=== PATIENT | male | born 1965 | race African-American/Black ===

== ENCOUNTER 2022-04-23 15:22 | Inpatient (IN) | payer OTHER ==
[2022-04-23 15:51] VITALS: BMI 21.9
[2022-04-23] MEDS ORDERED: POLYETHYLENE GLYCOL (HEALTHYLAX) 3350 17 GM PACKET PO PRN (18:41)
[2022-04-23] MEDS ORDERED: MAG HYDROX/AL HYDROX/SIMETH 30 ML UNIT-DOSE CUP PO PRN (18:41)
[2022-04-23] MEDS ORDERED: ACETAMINOPHEN 325 MG TABLET (FP) PO PRN ×2 (18:41)
[2022-04-23] MEDS ORDERED: DICYCLOMINE HCL 10 MG CAPSULE PO PRN (18:41)
[2022-04-23] MEDS ORDERED: METHOCARBAMOL 500 MG TABLET PO PRN (18:41)
[2022-04-23] MEDS ORDERED: NICOTINE 10 MG CARTRIDGE (INHALER) IH PRN (18:41)
[2022-04-23] MEDS ORDERED: hydrOXYzine PAMOATE 25 MG CAPSULE (FP) PO PRN (18:41)
[2022-04-23] MEDS ORDERED: ONDANSETRON *ODT* 4 MG TABLET SL PRN (18:41)
[2022-04-23] MEDS ORDERED: MAGNESIUM HYDROX 2400MG/30ML ORAL SUSPENSION 30 ML CUP PO PRN (18:41)
[2022-04-23] MEDS ORDERED: BISMUTH SUBSALICYLATE 524 MG/30 ML PO PRN (18:41)
[2022-04-23] MEDS ORDERED: NALOXONE HCL (KLOXXADO) 8 MG SPRAY NS PRN (18:41)
[2022-04-23] MEDS ORDERED: LORazepam 1 MG TABLET PO PRN (18:41)
[2022-04-23] MEDS ORDERED: LOPERAMIDE HCL 2 MG CAPSULE PO PRN (18:41)
[2022-04-23] MEDS ORDERED: BENZOCAINE/MENTHOL (CHLORASEPTIC ) LOZENGE MM PRN (18:41)
[2022-04-23] MEDS ORDERED: IBUPROFEN 400 MG TABLET (FP) PO PRN (18:41)
[2022-04-23] MEDS ORDERED: NICOTINE POLACRILEX 2 MG GUM BUC PRN (18:41)
[2022-04-23] MEDS ORDERED: IBUPROFEN 600 MG TABLET (FP) PO PRN (18:41)
[2022-04-23] MEDS: THIAMINE HCL 100 MG TABLET (FP) PO SCH (21:21)
[2022-04-23] MEDS: INSULIN (LEVEMIR) 100 UNITS/ML UNITS SQ SCH (21:22)
[2022-04-23] MEDS: LORazepam 2 MG TABLET PO SCH (22:10)
[2022-04-23] MEDS: MELATONIN 5 MG TABLETS PO SCH (22:11)
[2022-04-24] MEDS: LORazepam 2 MG TABLET PO SCH ×4 (05:29→22:52)
[2022-04-24] MEDS: INSULIN SLIDING SCALE (NOVOLOG) 1 VIAL SQ SCH ×3 (06:44→17:10)
[2022-04-24] MEDS ORDERED: INSULIN SLIDING SCALE (NOVOLOG) 1 VIAL SQ SCH (07:00)
[2022-04-24] MEDS: metoPROLOL SUCCINATE 25 MG TAB.SR.24H (FP) PO SCH (10:03)
[2022-04-24] MEDS: PRENATAL VITAMINS W/ FOLIC ACID TABLET (FP) PO SCH (10:03)
[2022-04-24] MEDS: ASPIRIN 81 MG CHEWABLE TABLETS PO SCH (10:04)
[2022-04-24] MEDS: LISINOPRIL 5 MG TABLET PO SCH (10:30)
[2022-04-24] MEDS: THIAMINE HCL 100 MG TABLET (FP) PO SCH (22:51)
[2022-04-24] MEDS: MELATONIN 5 MG TABLETS PO SCH (22:51)
[2022-04-24] MEDS: INSULIN (LEVEMIR) 100 UNITS/ML UNITS SQ SCH (22:54)
[2022-04-25] MEDS: LORazepam 1 MG TABLET PO SCH ×3 (05:30→18:54)
[2022-04-25] MEDS: INSULIN SLIDING SCALE (NOVOLOG) 1 VIAL SQ SCH ×3 (06:21→18:54)
[2022-04-25 09:14] VITALS: RESP 17
[2022-04-25] MEDS: PRENATAL VITAMINS W/ FOLIC ACID TABLET (FP) PO SCH (10:30)
[2022-04-25] MEDS: LISINOPRIL 5 MG TABLET PO SCH (10:31)
[2022-04-25] MEDS: ASPIRIN 81 MG CHEWABLE TABLETS PO SCH (10:31)
[2022-04-25] MEDS: metoPROLOL SUCCINATE 25 MG TAB.SR.24H (FP) PO SCH (10:31)
[2022-04-25 11:36] LABS: HEMATOCRIT 24.1 % (35.4-49); HEMOGLOBIN 7.5 GM/dL (11.7-16.9); MCH 23.3 pg (25.7-33.7); MCHC 31.3 g/dl (32.0-35.9); MEAN CELL VOLUME 74.3 fl (80-96); MEAN PLT VOLUME 8.8 fl (7.5-11.1); PLATELET COUNT 333 10^3/uL (134-434); RBC 3.25 M/mm3 (4.00-5.60); RDW 18.8 % (11.9-15.9); WHITE BLOOD COUNT 5.4 K/mm3 (4.0-10.0)
[2022-04-25 12:27] LABS: CALCIUM 8.1 mg/dL (8.5-10.1)
[2022-04-25 12:28] LABS: ALBUMIN 2.5 g/dl (3.4-5.0); BLOOD UREA NITROGEN 35.7 mg/dL (7-18)
[2022-04-25 12:31] LABS: BILIRUBIN,TOTAL 0.3 mg/dL (0.2-1)
[2022-04-25 12:33] LABS: TOT PROT 6.3 g/dl (6.4-8.2)
[2022-04-25 13:13] VITALS: BP 137/78; PULSE 96; TEMP 96.6
[2022-04-25] MEDS ORDERED: NIFEdipine E.R. 30 MG TABLET PO SCH (13:30)
[2022-04-25] MEDS ORDERED: levETIRAcetam 500 MG TABLET (FP) PO SCH (13:30)
[2022-04-25] MEDS ORDERED: ASPIRIN PO SCH (13:30)
[2022-04-25] MEDS ORDERED: SEVELAMER CARBONATE 800 MG TAB (FP) PO SCH (17:30)
[2022-04-25] MEDS ORDERED: PATIENT'S OWN MEDICATION (NON-FORMULARY) (Insulin Glargine,Hum.Rec.Anlog [Lantus Solostar] SQ SCH (22:00)
[2022-04-26] MEDS ORDERED: LORazepam 0.5 MG TABLET PO PRN
[2022-04-26] MEDS ORDERED: LORazepam 0.5 MG TABLET PO SCH (05:00)
[2022-04-26] MEDS ORDERED: FOLIC ACID 1 MG TABLET (FP) PO SCH (10:00)
[2022-04-26] MEDS ORDERED: CALCIUM 500MG/VIT-D 200 UNITS COMBO TABLET (FP) PO SCH (10:00)
[2022-04-27] MEDS ORDERED: LORazepam 0.5 MG TABLET PO ONE (05:00)
== END 2022-04-25 21:47 | disposition short-term general hospital (02) | DRG 775 ==
LOC: YASAS 15:22 → Y3N 19:33
PROVIDERS: ADMIT Allergy & Immunology; ATTEND Family Medicine
PROC: HZ2ZZZZ Detoxification Services for Substance Abuse Treatment (ICD-10-PCS; principal; 2022-04-23)
DX: F10.230 Alcohol dependence with withdrawal, uncomplicated (principal); I25.10 Atherosclerotic heart disease of native coronary artery without angina pectoris; I10 Essential (primary) hypertension; D64.9 Anemia, unspecified; Z95.1 Presence of aortocoronary bypass graft; E78.5 Hyperlipidemia, unspecified; K21.9 Gastro-esophageal reflux disease without esophagitis; E11.9 Type 2 diabetes mellitus without complications; Z79.4 Long term (current) use of insulin; M54.50 Low back pain, unspecified; G89.29 Other chronic pain; Z87.19 Personal history of other diseases of the digestive system; Z88.8 Allergy status to other drugs, medicaments and biological substances
CPT/HCPCS: 36415; 80053; 82962; 85027; 86593; 86780; 87811; C9803-CS; U0003; U0005

== ENCOUNTER 2022-04-25 14:10 | Inpatient (IN) | payer OTHER ==
[2022-04-25 16:28] LABS: BASO % 1.1 % (0-2.0); EOS % 5.6 % (0-4.5); HEMATOCRIT 23.7 % (35.4-49); HEMOGLOBIN 7.3 GM/dL (11.7-16.9); LYMPH % 18.6 % (8-40); MCH 22.9 pg (25.7-33.7); MCHC 30.7 g/dl (32.0-35.9); MEAN CELL VOLUME 74.5 fl (80-96); MEAN PLT VOLUME 8.7 fl (7.5-11.1); MONO % 8.9 % (3.8-10.2); NEUT % 65.8 % (42.8-82.8); PLATELET COUNT 297 10^3/uL (134-434); RBC 3.18 M/mm3 (4.00-5.60); RDW 18.3 % (11.9-15.9); WHITE BLOOD COUNT 5.1 K/mm3 (4.0-10.0)
[2022-04-25 16:33] LABS: INR 1.01 (0.83-1.09); PROTHROMBIN TIME (PATIENT) 11.6 SEC (9.7-13.0)
[2022-04-25 16:36] LABS: ACTIVATED PTT 28.6 SECONDS (25.2-36.5)
[2022-04-25 17:27] LABS: ALBUMIN 2.6 g/dl (3.4-5.0); BLOOD UREA NITROGEN 34.1 mg/dL (7-18); CALCIUM 8.1 mg/dL (8.5-10.1)
[2022-04-25 17:29] LABS: CREATININE 2.7 mg/dL (0.55-1.3)
[2022-04-25 17:32] LABS: BILIRUBIN,TOTAL 0.2 mg/dL (0.2-1); TOT PROT 6.5 g/dl (6.4-8.2)
[2022-04-25] MEDS ORDERED: ACETAMINOPHEN 1000 MG/100 ML BAG IVPB PRN (20:48)
[2022-04-25] MEDS ORDERED: LORazepam 1 MG TABLET PO PRN ×2 (21:41→22:21)
[2022-04-25] MEDS ORDERED: FOLIC ACID INJECTION - 1 MG, THIAMINE HCL 100 MG, MULTIVIT INJECTION ADULT 10 ML in SOD... IVPB ONE (21:43)
[2022-04-25] MEDS ORDERED: SODIUM CHLORIDE 1,000 ML IV SCH (21:45)
[2022-04-25] MEDS ORDERED: ACETAMINOPHEN INJECTION 100 ML IVPB ONE (21:56)
[2022-04-26 01:20] VITALS: BMI 22.7
[2022-04-26] MEDS: HEPARIN NA (PORCINE) 5,000 UNITS/ML 1ML VIAL SQ SCH ×2 (01:51→06:06)
[2022-04-26] MEDS: LORazepam 1 MG TABLET PO SCH ×6 (01:51→22:38)
[2022-04-26] MEDS: INSULIN SLIDING SCALE (NOVOLOG) 1 VIAL SQ SCH ×5 (02:53→22:39)
[2022-04-26] MEDS ORDERED: FOLIC ACID INJECTION - 1 MG, THIAMINE HCL 100 MG, MULTIVIT INJECTION ADULT 10 ML in SOD... IVPB ONE (09:15)
[2022-04-26] MEDS: THIAMINE HCL 100 MG TABLET (FP) PO SCH (09:35)
[2022-04-26] MEDS: FOLIC ACID 1 MG TABLET (FP) PO SCH (09:35)
[2022-04-26] MEDS: LIDOCAINE 5% TOPICAL PATCH TP SCH (10:01)
[2022-04-26] MEDS: GABAPENTIN 100 MG CAPSULE PO SCH ×3 (11:21→22:12)
[2022-04-26 11:56] LABS: BASO % 0.6 % (0-2.0); EOS % 3.4 % (0-4.5); HEMOGLOBIN 9.7 GM/dL (11.7-16.9); LYMPH % 15.2 % (8-40); MCH 24.1 pg (25.7-33.7); MCHC 31.4 g/dl (32.0-35.9); MEAN CELL VOLUME 76.8 fl (80-96); MEAN PLT VOLUME 8.9 fl (7.5-11.1); MONO % 6.4 % (3.8-10.2); NEUT % 74.4 % (42.8-82.8); PLATELET COUNT 289 10^3/uL (134-434); RBC 4.03 M/mm3 (4.00-5.60); RDW 18.9 % (11.9-15.9); RETICULOCYTES 1.06 % (0.5-1.5); WHITE BLOOD COUNT 7.1 K/mm3 (4.0-10.0)
[2022-04-26 12:21] LABS: ALBUMIN 2.8 g/dl (3.4-5.0); BLOOD UREA NITROGEN 30.8 mg/dL (7-18); CALCIUM 8.5 mg/dL (8.5-10.1); MAGNESIUM 1.8 mg/dL (1.8-2.4)
[2022-04-26 12:25] LABS: PHOSPHOROUS 2.8 mg/dL (2.5-4.9)
[2022-04-26 12:26] LABS: CREATININE 2.3 mg/dL (0.55-1.3); TOT PROT 6.8 g/dl (6.4-8.2)
[2022-04-26 12:27] LABS: BILIRUBIN,TOTAL 0.2 mg/dL (0.2-1)
[2022-04-26] MEDS: SEVELAMER CARBONATE 800 MG TAB (FP) PO SCH ×2 (14:01→22:13)
[2022-04-26] MEDS: levETIRAcetam 500 MG TABLET (FP) PO SCH ×2 (14:01→22:13)
[2022-04-26] MEDS: METOPROLOL TARTRATE 25 MG TABLET (FP) PO SCH (14:01)
[2022-04-26] MEDS: NIFEdipine E.R. 30 MG TABLET PO SCH (14:16)
[2022-04-26 14:56] LABS: PH,URINE 8.5 (5.0-8.0); URINE APPEARANCE CLEAR; URINE BILIRUBIN NEGATIVE (NEGATIVE); URINE COLOR YELLOW; URINE GLUCOSE (UA) 2+ (NEGATIVE); URINE KETONE NEGATIVE (NEGATIVE); URINE LEUK ESTERASE NEGATIVE (NEGATIVE); URINE NITRITE NEGATIVE (NEGATIVE); URINE PROTEIN NEGATIVE (NEGATIVE); URINE UROBILINOGEN 0.2 mg/dL (0.2-1.0)
[2022-04-26] MEDS: MAG HYDROX/AL HYDROX/SIMETH 30 ML UNIT-DOSE CUP PO PRN ×2 (16:42→22:32)
[2022-04-26] MEDS: ATORVASTATIN CA 20 MG TABLET (FP) PO SCH (22:13)
[2022-04-26] MEDS: LIDOCAINE PATCH REMOVAL MC SCH (22:39)
[2022-04-26] MEDS: INSULIN (LEVEMIR) 100 UNITS/ML UNITS SQ SCH (22:39)
[2022-04-26] MEDS ORDERED: ACETAMINOPHEN 1000 MG/100 ML BAG IVPB ONE (23:15)
[2022-04-27] MEDS ORDERED: LORazepam 1 MG TABLET PO SCH (05:00)
[2022-04-27] MEDS: LORazepam 1 MG TABLET PO SCH ×4 (06:45→22:59)
[2022-04-27] MEDS: SEVELAMER CARBONATE 800 MG TAB (FP) PO SCH ×3 (06:45→22:59)
[2022-04-27] MEDS: GABAPENTIN 100 MG CAPSULE PO SCH ×3 (06:45→22:59)
[2022-04-27] MEDS: INSULIN (LEVEMIR) 100 UNITS/ML UNITS SQ SCH ×2 (06:49→23:02)
[2022-04-27] MEDS: INSULIN SLIDING SCALE (NOVOLOG) 1 VIAL SQ SCH ×4 (06:49→23:01)
[2022-04-27 09:24] LABS: HEMATOCRIT 29.9 % (35.4-49); HEMOGLOBIN 9.5 GM/dL (11.7-16.9); MCH 24.2 pg (25.7-33.7); MCHC 31.9 g/dl (32.0-35.9); MEAN CELL VOLUME 75.9 fl (80-96); MEAN PLT VOLUME 8.6 fl (7.5-11.1); PLATELET COUNT 317 10^3/uL (134-434); RBC 3.94 M/mm3 (4.00-5.60); RDW 18.8 % (11.9-15.9); WHITE BLOOD COUNT 7.2 K/mm3 (4.0-10.0)
[2022-04-27 09:58] LABS: CALCIUM 8.6 mg/dL (8.5-10.1)
[2022-04-27 10:00] LABS: ALBUMIN 2.6 g/dl (3.4-5.0); BLOOD UREA NITROGEN 32.7 mg/dL (7-18)
[2022-04-27] MEDS ORDERED: FERROUS SO4 325 MG TABLET (FP) PO SCH (10:00)
[2022-04-27 10:02] LABS: TOT PROT 6.6 g/dl (6.4-8.2)
[2022-04-27 10:03] LABS: BILIRUBIN,TOTAL 0.3 mg/dL (0.2-1); CREATININE 2.3 mg/dL (0.55-1.3)
[2022-04-27] MEDS: levETIRAcetam 500 MG TABLET (FP) PO SCH ×2 (10:40→22:59)
[2022-04-27] MEDS: METOPROLOL TARTRATE 25 MG TABLET (FP) PO SCH (10:40)
[2022-04-27] MEDS: NIFEdipine E.R. 30 MG TABLET PO SCH (10:40)
[2022-04-27] MEDS: FOLIC ACID 1 MG TABLET (FP) PO SCH ×2 (10:40→10:41)
[2022-04-27] MEDS: THIAMINE HCL 100 MG TABLET (FP) PO SCH (10:40)
[2022-04-27] MEDS: LIDOCAINE 5% TOPICAL PATCH TP SCH (10:40)
[2022-04-27] MEDS: MAG HYDROX/AL HYDROX/SIMETH 30 ML UNIT-DOSE CUP PO PRN ×2 (15:02→22:59)
[2022-04-27] MEDS: ATORVASTATIN CA 20 MG TABLET (FP) PO SCH (22:59)
[2022-04-27] MEDS: LIDOCAINE PATCH REMOVAL MC SCH (23:03)
[2022-04-28] MEDS ORDERED: LORazepam 0.5 MG TABLET PO PRN ×2
[2022-04-28] MEDS ORDERED: LORazepam 0.5 MG TABLET PO SCH (05:00)
[2022-04-28] MEDS: GABAPENTIN 100 MG CAPSULE PO SCH ×3 (06:45→22:19)
[2022-04-28] MEDS: SEVELAMER CARBONATE 800 MG TAB (FP) PO SCH ×3 (06:45→22:19)
[2022-04-28] MEDS: LORazepam 0.5 MG TABLET PO SCH ×4 (06:45→22:18)
[2022-04-28] MEDS: INSULIN (LEVEMIR) 100 UNITS/ML UNITS SQ SCH ×2 (06:46→22:19)
[2022-04-28] MEDS: INSULIN SLIDING SCALE (NOVOLOG) 1 VIAL SQ SCH ×4 (06:46→22:20)
[2022-04-28 09:45] LABS: HEMATOCRIT 30.9 % (35.4-49); HEMOGLOBIN 9.9 GM/dL (11.7-16.9); MCH 24.7 pg (25.7-33.7); MCHC 32.1 g/dl (32.0-35.9); MEAN CELL VOLUME 77.1 fl (80-96); MEAN PLT VOLUME 8.9 fl (7.5-11.1); PLATELET COUNT 317 10^3/uL (134-434); RDW 19.4 % (11.9-15.9); WHITE BLOOD COUNT 9.5 K/mm3 (4.0-10.0)
[2022-04-28] MEDS: FOLIC ACID 1 MG TABLET (FP) PO SCH ×2 (09:57→10:48)
[2022-04-28] MEDS: THIAMINE HCL 100 MG TABLET (FP) PO SCH (09:57)
[2022-04-28] MEDS: NIFEdipine E.R. 30 MG TABLET PO SCH (09:57)
[2022-04-28] MEDS: levETIRAcetam 500 MG TABLET (FP) PO SCH ×2 (09:57→22:19)
[2022-04-28] MEDS: METOPROLOL TARTRATE 25 MG TABLET (FP) PO SCH (09:57)
[2022-04-28] MEDS: LIDOCAINE 5% TOPICAL PATCH TP SCH (09:57)
[2022-04-28 10:37] LABS: ALBUMIN 2.8 g/dl (3.4-5.0)
[2022-04-28 10:38] LABS: BLOOD UREA NITROGEN 38.5 mg/dL (7-18)
[2022-04-28 10:40] LABS: CALCIUM 8.8 mg/dL (8.5-10.1); CREATININE 2.6 mg/dL (0.55-1.3)
[2022-04-28 10:42] LABS: BILIRUBIN,TOTAL 0.2 mg/dL (0.2-1); TOT PROT 7.2 g/dl (6.4-8.2)
[2022-04-28] MEDS: MAG HYDROX/AL HYDROX/SIMETH 30 ML UNIT-DOSE CUP PO PRN ×2 (17:00→22:19)
[2022-04-28] MEDS: ATORVASTATIN CA 20 MG TABLET (FP) PO SCH (22:19)
[2022-04-28] MEDS: LIDOCAINE PATCH REMOVAL MC SCH (22:19)
[2022-04-29] MEDS ORDERED: LORazepam 0.5 MG TABLET PO ONE ×2 (05:00)
[2022-04-29] MEDS: GABAPENTIN 100 MG CAPSULE PO SCH ×3 (06:20→21:17)
[2022-04-29] MEDS: SEVELAMER CARBONATE 800 MG TAB (FP) PO SCH ×3 (06:20→21:17)
[2022-04-29] MEDS: INSULIN (LEVEMIR) 100 UNITS/ML UNITS SQ SCH (06:28)
[2022-04-29] MEDS: INSULIN SLIDING SCALE (NOVOLOG) 1 VIAL SQ SCH ×4 (06:28→21:25)
[2022-04-29 09:57] LABS: INR 1.01 (0.83-1.09); PROTHROMBIN TIME (PATIENT) 11.6 SEC (9.7-13.0)
[2022-04-29 10:07] LABS: HEMOGLOBIN 9.7 GM/dL (11.7-16.9); MCH 24.9 pg (25.7-33.7); MCHC 32.3 g/dl (32.0-35.9); MEAN PLT VOLUME 8.9 fl (7.5-11.1); PLATELET COUNT 339 10^3/uL (134-434); RBC 3.89 M/mm3 (4.00-5.60); RDW 19.4 % (11.9-15.9); WHITE BLOOD COUNT 8.4 K/mm3 (4.0-10.0)
[2022-04-29 10:15] LABS: CALCIUM 8.9 mg/dL (8.5-10.1)
[2022-04-29 10:16] LABS: ALBUMIN 2.8 g/dl (3.4-5.0); BLOOD UREA NITROGEN 37.1 mg/dL (7-18)
[2022-04-29 10:19] LABS: CREATININE 2.3 mg/dL (0.55-1.3)
[2022-04-29 10:21] LABS: BILIRUBIN,TOTAL 0.2 mg/dL (0.2-1)
[2022-04-29] MEDS: levETIRAcetam 500 MG TABLET (FP) PO SCH ×2 (10:44→21:16)
[2022-04-29] MEDS: FOLIC ACID 1 MG TABLET (FP) PO SCH ×2 (10:44)
[2022-04-29] MEDS: NIFEdipine E.R. 30 MG TABLET PO SCH (10:44)
[2022-04-29] MEDS: LIDOCAINE 5% TOPICAL PATCH TP SCH ×2 (10:44→10:46)
[2022-04-29] MEDS: METOPROLOL TARTRATE 25 MG TABLET (FP) PO SCH (10:44)
[2022-04-29] MEDS: THIAMINE HCL 100 MG TABLET (FP) PO SCH (10:44)
[2022-04-29] MEDS ORDERED: PEG 3350/NA SULF BICARB CL/KCL 4000 ML SOLN.RECON PO ONE (15:00)
[2022-04-29] MEDS ORDERED: BISACODYL 5 MG TABLET.DR (FP) PO ONE (20:00)
[2022-04-29] MEDS ORDERED: MAG HYDROX/AL HYDROX/SIMETH 30 ML UNIT-DOSE CUP PO ONE (20:30)
[2022-04-29] MEDS: ATORVASTATIN CA 20 MG TABLET (FP) PO SCH (21:16)
[2022-04-29] MEDS: LIDOCAINE PATCH REMOVAL MC SCH (21:22)
[2022-04-30] MEDS: SEVELAMER CARBONATE 800 MG TAB (FP) PO SCH ×3 (05:27→21:10)
[2022-04-30] MEDS: GABAPENTIN 100 MG CAPSULE PO SCH ×3 (05:27→21:10)
[2022-04-30] MEDS: INSULIN SLIDING SCALE (NOVOLOG) 1 VIAL SQ SCH ×4 (06:29→21:16)
[2022-04-30 09:22] VITALS: RESP 20
[2022-04-30] MEDS: LIDOCAINE 5% TOPICAL PATCH TP SCH (09:23)
[2022-04-30] MEDS: THIAMINE HCL 100 MG TABLET (FP) PO SCH (09:23)
[2022-04-30] MEDS: levETIRAcetam 500 MG TABLET (FP) PO SCH ×2 (09:23→21:09)
[2022-04-30] MEDS: NIFEdipine E.R. 30 MG TABLET PO SCH (09:23)
[2022-04-30] MEDS: FOLIC ACID 1 MG TABLET (FP) PO SCH ×2 (09:23)
[2022-04-30] MEDS: METOPROLOL TARTRATE 25 MG TABLET (FP) PO SCH (09:24)
[2022-04-30 10:37] LABS: INR 1.12 (0.83-1.09); PROTHROMBIN TIME (PATIENT) 12.9 SEC (9.7-13.0)
[2022-04-30 10:40] LABS: EOS % 2.7 % (0-4.5); HEMOGLOBIN 8.8 GM/dL (11.7-16.9); LYMPH % 17.1 % (8-40); MCH 24.7 pg (25.7-33.7); MCHC 32.5 g/dl (32.0-35.9); MEAN CELL VOLUME 75.8 fl (80-96); MEAN PLT VOLUME 8.7 fl (7.5-11.1); MONO % 6.2 % (3.8-10.2); PLATELET COUNT 328 10^3/uL (134-434); RBC 3.56 M/mm3 (4.00-5.60); RDW 19.4 % (11.9-15.9); WHITE BLOOD COUNT 8.6 K/mm3 (4.0-10.0)
[2022-04-30 11:14] LABS: BLOOD UREA NITROGEN 33.9 mg/dL (7-18)
[2022-04-30] MEDS: PANTOPRAZOLE 40 MG TABLET PO SCH (15:38)
[2022-04-30] MEDS: SODIUM ZIRCONIUM CYCLOSILICATE (LOKELMA) 5 GM PACKET PO SCH (16:59)
[2022-04-30] MEDS: ATORVASTATIN CA 20 MG TABLET (FP) PO SCH (21:10)
[2022-04-30] MEDS: LIDOCAINE PATCH REMOVAL MC SCH (21:19)
[2022-05-01] MEDS: SEVELAMER CARBONATE 800 MG TAB (FP) PO SCH ×3 (05:48→23:09)
[2022-05-01] MEDS: GABAPENTIN 100 MG CAPSULE PO SCH ×2 (05:48→14:26)
[2022-05-01] MEDS: INSULIN (LEVEMIR) 100 UNITS/ML UNITS SQ SCH ×2 (06:01→23:18)
[2022-05-01] MEDS: INSULIN SLIDING SCALE (NOVOLOG) 1 VIAL SQ SCH ×4 (06:02→23:17)
[2022-05-01] MEDS ORDERED: INSULIN (NOVOLOG) ASPART 100 UNITS/ML 10ML VIAL ONE (06:39)
[2022-05-01] MEDS: FOLIC ACID 1 MG TABLET (FP) PO SCH (09:56)
[2022-05-01] MEDS: NIFEdipine E.R. 30 MG TABLET PO SCH (09:56)
[2022-05-01] MEDS: PANTOPRAZOLE 40 MG TABLET PO SCH (09:56)
[2022-05-01] MEDS: METOPROLOL TARTRATE 25 MG TABLET (FP) PO SCH (09:56)
[2022-05-01] MEDS: THIAMINE HCL 100 MG TABLET (FP) PO SCH (09:56)
[2022-05-01] MEDS: LIDOCAINE 5% TOPICAL PATCH TP SCH (09:57)
[2022-05-01] MEDS: levETIRAcetam 500 MG TABLET (FP) PO SCH ×2 (09:57→23:09)
[2022-05-01] MEDS: SODIUM ZIRCONIUM CYCLOSILICATE (LOKELMA) 5 GM PACKET PO SCH (09:57)
[2022-05-01 10:49] LABS: HEMATOCRIT 25.6 % (35.4-49); HEMOGLOBIN 8.3 GM/dL (11.7-16.9); MCH 24.8 pg (25.7-33.7); MCHC 32.3 g/dl (32.0-35.9); MEAN CELL VOLUME 76.7 fl (80-96); MEAN PLT VOLUME 8.9 fl (7.5-11.1); PLATELET COUNT 299 10^3/uL (134-434); RBC 3.33 M/mm3 (4.00-5.60); RDW 19.7 % (11.9-15.9); WHITE BLOOD COUNT 7.6 K/mm3 (4.0-10.0)
[2022-05-01 11:13] LABS: BLOOD UREA NITROGEN 31.7 mg/dL (7-18); CALCIUM 8.4 mg/dL (8.5-10.1)
[2022-05-01 11:16] LABS: CREATININE 2.4 mg/dL (0.55-1.3)
[2022-05-01] MEDS ORDERED: SODIUM ZIRCONIUM CYCLOSILICATE (LOKELMA) 5 GM PACKET PO SCH (13:23)
[2022-05-01] MEDS: SODIUM BICARBONATE 650 MG TABLET PO SCH ×2 (14:27→23:08)
[2022-05-01] MEDS: LIDOCAINE PATCH REMOVAL MC SCH (23:08)
[2022-05-01] MEDS: ATORVASTATIN CA 20 MG TABLET (FP) PO SCH (23:08)
[2022-05-02] MEDS: SEVELAMER CARBONATE 800 MG TAB (FP) PO SCH ×2 (07:56→13:04)
[2022-05-02] MEDS: INSULIN SLIDING SCALE (NOVOLOG) 1 VIAL SQ SCH ×2 (08:34→11:32)
[2022-05-02] MEDS: INSULIN (LEVEMIR) 100 UNITS/ML UNITS SQ SCH (08:35)
[2022-05-02] MEDS: SODIUM BICARBONATE 650 MG TABLET PO SCH (10:03)
[2022-05-02] MEDS: NIFEdipine E.R. 30 MG TABLET PO SCH (10:03)
[2022-05-02] MEDS: THIAMINE HCL 100 MG TABLET (FP) PO SCH (10:03)
[2022-05-02] MEDS: FOLIC ACID 1 MG TABLET (FP) PO SCH (10:03)
[2022-05-02] MEDS: PANTOPRAZOLE 40 MG TABLET PO SCH (10:03)
[2022-05-02] MEDS: METOPROLOL TARTRATE 25 MG TABLET (FP) PO SCH (10:03)
[2022-05-02] MEDS: levETIRAcetam 500 MG TABLET (FP) PO SCH (10:03)
[2022-05-02] MEDS: LIDOCAINE 5% TOPICAL PATCH TP SCH (10:05)
[2022-05-02 13:25] LABS: HEMATOCRIT 27.2 % (35.4-49); HEMOGLOBIN 8.7 GM/dL (11.7-16.9); MCH 24.6 pg (25.7-33.7); PLATELET COUNT 321 10^3/uL (134-434); RBC 3.53 M/mm3 (4.00-5.60); RDW 20.2 % (11.9-15.9); WHITE BLOOD COUNT 9.6 K/mm3 (4.0-10.0)
[2022-05-02 13:33] LABS: CALCIUM 8.3 mg/dL (8.5-10.1)
[2022-05-02 13:34] LABS: BLOOD UREA NITROGEN 30.9 mg/dL (7-18)
[2022-05-02 13:37] LABS: CREATININE 2.5 mg/dL (0.55-1.3)
[2022-05-02 15:11] VITALS: BP 133/95; PULSE 91; TEMP 98.7
== END 2022-05-02 16:30 | disposition other institution (70) | DRG 470 ==
LOC: JER 14:10 → JERBED 20:01 → J7W 23:20 → J8W 04-26 14:53
PROVIDERS: ADMIT Internal Medicine
PROC: 30233N1 Transfusion of Nonautologous Red Blood Cells into Peripheral Vein, Percutaneous Approach (ICD-10-PCS; 2022-04-26)
PROC: 0DB98ZX Excision of Duodenum, Via Natural or Artificial Opening Endoscopic, Diagnostic (ICD-10-PCS; 2022-04-30)
PROC: 0DB68ZX Excision of Stomach, Via Natural or Artificial Opening Endoscopic, Diagnostic (ICD-10-PCS; 2022-04-30)
PROC: 0DB58ZX Excision of Esophagus, Via Natural or Artificial Opening Endoscopic, Diagnostic (ICD-10-PCS; principal; 2022-04-30 12:00)
DX: I12.9 Hypertensive chronic kidney disease with stage 1 through stage 4 chronic kidney disease, or unspecified chronic kidney disease (principal); N18.4 Chronic kidney disease, stage 4 (severe); E11.22 Type 2 diabetes mellitus with diabetic chronic kidney disease; E11.65 Type 2 diabetes mellitus with hyperglycemia; K86.1 Other chronic pancreatitis; D63.1 Anemia in chronic kidney disease; F10.139 Alcohol abuse with withdrawal, unspecified; F17.210 Nicotine dependence, cigarettes, uncomplicated; K29.20 Alcoholic gastritis without bleeding; K21.00 Gastro-esophageal reflux disease with esophagitis, without bleeding; K44.9 Diaphragmatic hernia without obstruction or gangrene; K59.00 Constipation, unspecified; E78.5 Hyperlipidemia, unspecified; Z95.1 Presence of aortocoronary bypass graft
CPT/HCPCS: 0241U-QW; 36415; 36430; 71045-TC-FY; 74176-TC; 76775-TC; 80048; 80053; 81003; 82550; 82570; 82728; 82962; 83540; 83550; 83735; 83970; 84100; 84132; 84155; 84156; 84157; 84165; 85025; 85027; 85045; 85610; 85730; 86704; 86803; 86850; 86900; 86901; 86922; 87340; 87517; 88305-TC; 93005; 93010; 93306-TC; 99285-25; C9803-CS; J1644; P9058; U0003; U0005

== ENCOUNTER 2022-05-02 16:43 | Inpatient (IN) | payer OTHER ==
[2022-05-02] MEDS ORDERED: ACETAMINOPHEN 325 MG TABLET (FP) PO PRN (16:58)
[2022-05-02] MEDS ORDERED: P-EPHED 60MG/TRIPROLIDI 2.5MG TABLET PO PRN (16:58)
[2022-05-02] MEDS ORDERED: POLYETHYLENE GLYCOL (HEALTHYLAX) 3350 17 GM PACKET PO PRN (16:58)
[2022-05-02] MEDS ORDERED: NICOTINE 10 MG CARTRIDGE (INHALER) IH PRN (16:58)
[2022-05-02] MEDS ORDERED: BENZOCAINE/MENTHOL (CHLORASEPTIC ) LOZENGE MM PRN (16:58)
[2022-05-02] MEDS ORDERED: MAG HYDROX/AL HYDROX/SIMETH 30 ML UNIT-DOSE CUP PO PRN (16:58)
[2022-05-02] MEDS ORDERED: MAGNESIUM HYDROX 2400MG/30ML ORAL SUSPENSION 30 ML CUP PO PRN (16:58)
[2022-05-02] MEDS ORDERED: guaiFENesin 200 MG/10 ML 10 ML UNIT-DOSE CUPS PO PRN (16:58)
[2022-05-02] MEDS ORDERED: hydrOXYzine PAMOATE 25 MG CAPSULE (FP) PO PRN (16:58)
[2022-05-02] MEDS ORDERED: LOPERAMIDE HCL 2 MG CAPSULE PO PRN (16:58)
[2022-05-02] MEDS ORDERED: IBUPROFEN 400 MG TABLET (FP) PO PRN (16:58)
[2022-05-02 17:36] VITALS: RESP 18; BMI 22.8
[2022-05-02] MEDS ORDERED: METOPROLOL TARTRATE 25 MG TABLET (FP) ONE (20:10)
[2022-05-02] MEDS: metoPROLOL SUCCINATE 25 MG TAB.SR.24H (FP) PO SCH (20:12)
[2022-05-02] MEDS ORDERED: INSULIN (NOVOLOG) ASPART 100 UNITS/ML 10ML VIAL SQ ONE (20:16)
[2022-05-02] MEDS ORDERED: TUBERCULIN PPD 5 TU/0.1ML VIAL ID ONE (21:55)
[2022-05-02] MEDS: INSULIN (LEVEMIR) 100 UNITS/ML UNITS SQ SCH (22:00)
[2022-05-02] MEDS: MELATONIN 5 MG TABLETS PO SCH (22:03)
[2022-05-02] MEDS: ATORVASTATIN CA 20 MG TABLET (FP) PO SCH (22:03)
[2022-05-02] MEDS: levETIRAcetam 500 MG TABLET (FP) PO SCH (22:03)
[2022-05-02] MEDS: GABAPENTIN 100 MG CAPSULE PO SCH (22:03)
[2022-05-02] MEDS: THIAMINE HCL 100 MG TABLET (FP) PO SCH (22:03)
[2022-05-02] MEDS: CALCIUM CARBONATE 650 MG TABLET PO SCH (23:54)
[2022-05-02] MEDS: SODIUM BICARBONATE 650 MG TABLET PO SCH (23:54)
[2022-05-03] MEDS: GABAPENTIN 100 MG CAPSULE PO SCH ×3 (07:36→21:50)
[2022-05-03] MEDS: FERROUS SO4 325 MG TABLET (FP) PO SCH (07:37)
[2022-05-03] MEDS: INSULIN SLIDING SCALE (NOVOLOG) 1 VIAL SQ SCH ×3 (07:52→17:01)
[2022-05-03] MEDS ORDERED: ERGOCALCIFEROL (VIT D2) 50,000 UNIT (1.25 MG) CAPSULE PO SCH (10:00)
[2022-05-03] MEDS: SODIUM ZIRCONIUM CYCLOSILICATE (LOKELMA) 10 GM PACKET PO SCH (10:03)
[2022-05-03] MEDS: SEVELAMER CARBONATE 800 MG TAB (FP) PO SCH ×3 (10:04→17:01)
[2022-05-03] MEDS: CALCIUM CARBONATE 650 MG TABLET PO SCH ×2 (10:04→21:49)
[2022-05-03] MEDS: NIFEdipine E.R. 30 MG TABLET PO SCH (10:04)
[2022-05-03] MEDS: SODIUM BICARBONATE 650 MG TABLET PO SCH ×2 (10:05→21:50)
[2022-05-03] MEDS: metoPROLOL SUCCINATE 25 MG TAB.SR.24H (FP) PO SCH (10:06)
[2022-05-03] MEDS: levETIRAcetam 500 MG TABLET (FP) PO SCH ×2 (10:06→21:49)
[2022-05-03] MEDS: FOLIC ACID 1 MG TABLET (FP) PO SCH (10:06)
[2022-05-03] MEDS: PANTOPRAZOLE 40 MG TABLET PO SCH (10:06)
[2022-05-03] MEDS: PRENATAL VITAMINS W/ FOLIC ACID TABLET (FP) PO SCH (10:07)
[2022-05-03] MEDS: NICOTINE 7 MG/24 HOURS TOPICAL PATCH TD SCH (10:35)
[2022-05-03 11:18] LABS: HEMOGLOBIN 9.1 GM/dL (11.7-16.9); MCH 24.7 pg (25.7-33.7); MCHC 31.3 g/dl (32.0-35.9); MEAN PLT VOLUME 9.7 fl (7.5-11.1); PLATELET COUNT 358 10^3/uL (134-434); RBC 3.67 M/mm3 (4.00-5.60); RDW 20.1 % (11.9-15.9)
[2022-05-03 11:26] LABS: CALCIUM 8.6 mg/dL (8.5-10.1)
[2022-05-03 11:27] LABS: ALBUMIN 2.9 g/dl (3.4-5.0); BLOOD UREA NITROGEN 34.9 mg/dL (7-18)
[2022-05-03 11:30] LABS: CREATININE 2.6 mg/dL (0.55-1.3)
[2022-05-03 11:31] LABS: BILIRUBIN,TOTAL 0.4 mg/dL (0.2-1); TOT PROT 7.1 g/dl (6.4-8.2)
[2022-05-03 11:37] LABS: PH,URINE 5.5 (5.0-8.0); URINE APPEARANCE CLEAR; URINE BILIRUBIN NEGATIVE (NEGATIVE); URINE COLOR YELLOW; URINE GLUCOSE (UA) NEGATIVE (NEGATIVE); URINE KETONE NEGATIVE (NEGATIVE); URINE LEUK ESTERASE NEGATIVE (NEGATIVE); URINE NITRITE NEGATIVE (NEGATIVE); URINE PROTEIN NEGATIVE (NEGATIVE); URINE UROBILINOGEN 0.2 mg/dL (0.2-1.0)
[2022-05-03] MEDS ORDERED: INSULIN (NOVOLOG) ASPART 100 UNITS/ML 10ML VIAL ONE (12:32)
[2022-05-03] MEDS: ATORVASTATIN CA 20 MG TABLET (FP) PO SCH (21:50)
[2022-05-03] MEDS: MELATONIN 5 MG TABLETS PO SCH (21:50)
[2022-05-03] MEDS: THIAMINE HCL 100 MG TABLET (FP) PO SCH (21:50)
[2022-05-03] MEDS: INSULIN (LEVEMIR) 100 UNITS/ML UNITS SQ SCH (22:00)
[2022-05-04] MEDS: SEVELAMER CARBONATE 800 MG TAB (FP) PO SCH ×3 (07:53→17:16)
[2022-05-04] MEDS: FERROUS SO4 325 MG TABLET (FP) PO SCH (07:53)
[2022-05-04] MEDS: INSULIN SLIDING SCALE (NOVOLOG) 1 VIAL SQ SCH ×3 (07:53→17:27)
[2022-05-04] MEDS: GABAPENTIN 100 MG CAPSULE PO SCH ×3 (07:53→22:35)
[2022-05-04] MEDS: CALCIUM CARBONATE 650 MG TABLET PO SCH ×2 (10:34→22:35)
[2022-05-04] MEDS: levETIRAcetam 500 MG TABLET (FP) PO SCH ×2 (10:35→22:35)
[2022-05-04] MEDS: PANTOPRAZOLE 40 MG TABLET PO SCH (10:35)
[2022-05-04] MEDS: metoPROLOL SUCCINATE 25 MG TAB.SR.24H (FP) PO SCH (10:35)
[2022-05-04] MEDS: FOLIC ACID 1 MG TABLET (FP) PO SCH (10:35)
[2022-05-04] MEDS: SODIUM BICARBONATE 650 MG TABLET PO SCH ×2 (10:36→22:35)
[2022-05-04] MEDS: SODIUM ZIRCONIUM CYCLOSILICATE (LOKELMA) 10 GM PACKET PO SCH (10:37)
[2022-05-04] MEDS: NIFEdipine E.R. 30 MG TABLET PO SCH (10:38)
[2022-05-04] MEDS: NICOTINE 7 MG/24 HOURS TOPICAL PATCH TD SCH (10:39)
[2022-05-04] MEDS: PRENATAL VITAMINS W/ FOLIC ACID TABLET (FP) PO SCH (10:42)
[2022-05-04] MEDS: MELATONIN 5 MG TABLETS PO SCH (22:34)
[2022-05-04] MEDS: ATORVASTATIN CA 20 MG TABLET (FP) PO SCH (22:35)
[2022-05-04] MEDS: THIAMINE HCL 100 MG TABLET (FP) PO SCH (22:35)
[2022-05-04] MEDS: INSULIN (LEVEMIR) 100 UNITS/ML UNITS SQ SCH (22:41)
[2022-05-05] MEDS: SEVELAMER CARBONATE 800 MG TAB (FP) PO SCH ×3 (07:11→17:07)
[2022-05-05] MEDS: GABAPENTIN 100 MG CAPSULE PO SCH ×3 (07:11→22:44)
[2022-05-05] MEDS: FERROUS SO4 325 MG TABLET (FP) PO SCH (07:11)
[2022-05-05] MEDS: INSULIN SLIDING SCALE (NOVOLOG) 1 VIAL SQ SCH ×3 (08:05→17:05)
[2022-05-05] MEDS: FOLIC ACID 1 MG TABLET (FP) PO SCH (10:39)
[2022-05-05] MEDS: PANTOPRAZOLE 40 MG TABLET PO SCH (10:39)
[2022-05-05] MEDS: NIFEdipine E.R. 30 MG TABLET PO SCH (10:39)
[2022-05-05] MEDS: PRENATAL VITAMINS W/ FOLIC ACID TABLET (FP) PO SCH (10:39)
[2022-05-05] MEDS: CALCIUM CARBONATE 650 MG TABLET PO SCH ×2 (10:39→22:47)
[2022-05-05] MEDS: levETIRAcetam 500 MG TABLET (FP) PO SCH ×2 (10:39→22:44)
[2022-05-05] MEDS: metoPROLOL SUCCINATE 25 MG TAB.SR.24H (FP) PO SCH (10:39)
[2022-05-05] MEDS: NICOTINE 7 MG/24 HOURS TOPICAL PATCH TD SCH (10:40)
[2022-05-05] MEDS: SODIUM ZIRCONIUM CYCLOSILICATE (LOKELMA) 10 GM PACKET PO SCH (10:40)
[2022-05-05] MEDS: SODIUM BICARBONATE 650 MG TABLET PO SCH ×2 (10:40→22:47)
[2022-05-05] MEDS: MELATONIN 5 MG TABLETS PO SCH (22:44)
[2022-05-05] MEDS: ATORVASTATIN CA 20 MG TABLET (FP) PO SCH (22:44)
[2022-05-05] MEDS: THIAMINE HCL 100 MG TABLET (FP) PO SCH (22:45)
[2022-05-05] MEDS ORDERED: INSULIN (LEVEMIR) 100 UNITS/ML UNITS SQ ONE (22:49)
[2022-05-05] MEDS: INSULIN (LEVEMIR) 100 UNITS/ML UNITS SQ SCH (22:54)
[2022-05-06] MEDS: INSULIN SLIDING SCALE (NOVOLOG) 1 VIAL SQ SCH ×3 (06:56→17:09)
[2022-05-06] MEDS: GABAPENTIN 100 MG CAPSULE PO SCH ×3 (06:56→21:42)
[2022-05-06] MEDS: FERROUS SO4 325 MG TABLET (FP) PO SCH (07:08)
[2022-05-06] MEDS: SEVELAMER CARBONATE 800 MG TAB (FP) PO SCH ×3 (07:08→17:10)
[2022-05-06] MEDS: CALCIUM CARBONATE 650 MG TABLET PO SCH ×2 (10:22→21:42)
[2022-05-06] MEDS: FOLIC ACID 1 MG TABLET (FP) PO SCH (10:22)
[2022-05-06] MEDS: SODIUM ZIRCONIUM CYCLOSILICATE (LOKELMA) 10 GM PACKET PO SCH (10:22)
[2022-05-06] MEDS: levETIRAcetam 500 MG TABLET (FP) PO SCH ×2 (10:22→21:42)
[2022-05-06] MEDS: NIFEdipine E.R. 30 MG TABLET PO SCH (10:23)
[2022-05-06] MEDS: NICOTINE 7 MG/24 HOURS TOPICAL PATCH TD SCH (10:23)
[2022-05-06] MEDS: SODIUM BICARBONATE 650 MG TABLET PO SCH ×2 (10:23→21:45)
[2022-05-06] MEDS: metoPROLOL SUCCINATE 25 MG TAB.SR.24H (FP) PO SCH (10:23)
[2022-05-06] MEDS: PANTOPRAZOLE 40 MG TABLET PO SCH (10:23)
[2022-05-06] MEDS: PRENATAL VITAMINS W/ FOLIC ACID TABLET (FP) PO SCH (10:23)
[2022-05-06] MEDS: ASPIRIN 81 MG CHEWABLE TABLETS PO SCH (12:02)
[2022-05-06] MEDS: ATORVASTATIN CA 20 MG TABLET (FP) PO SCH (21:42)
[2022-05-06] MEDS: THIAMINE HCL 100 MG TABLET (FP) PO SCH (21:42)
[2022-05-06] MEDS: MELATONIN 5 MG TABLETS PO SCH (21:43)
[2022-05-06] MEDS: INSULIN (LEVEMIR) 100 UNITS/ML UNITS SQ SCH (21:44)
[2022-05-07] MEDS: GABAPENTIN 100 MG CAPSULE PO SCH ×3 (06:30→21:09)
[2022-05-07] MEDS: INSULIN SLIDING SCALE (NOVOLOG) 1 VIAL SQ SCH ×3 (06:31→16:28)
[2022-05-07] MEDS: FERROUS SO4 325 MG TABLET (FP) PO SCH (07:21)
[2022-05-07] MEDS: SEVELAMER CARBONATE 800 MG TAB (FP) PO SCH ×3 (07:21→16:45)
[2022-05-07] MEDS: SODIUM BICARBONATE 650 MG TABLET PO SCH ×2 (10:24→21:09)
[2022-05-07] MEDS: metoPROLOL SUCCINATE 25 MG TAB.SR.24H (FP) PO SCH (10:24)
[2022-05-07] MEDS: levETIRAcetam 500 MG TABLET (FP) PO SCH ×2 (10:24→21:09)
[2022-05-07] MEDS: FOLIC ACID 1 MG TABLET (FP) PO SCH (10:24)
[2022-05-07] MEDS: CALCIUM CARBONATE 650 MG TABLET PO SCH ×2 (10:24→21:10)
[2022-05-07] MEDS: PANTOPRAZOLE 40 MG TABLET PO SCH (10:24)
[2022-05-07] MEDS: NIFEdipine E.R. 30 MG TABLET PO SCH (10:24)
[2022-05-07] MEDS: PRENATAL VITAMINS W/ FOLIC ACID TABLET (FP) PO SCH (10:25)
[2022-05-07] MEDS: ASPIRIN 81 MG CHEWABLE TABLETS PO SCH (10:25)
[2022-05-07] MEDS: NICOTINE 7 MG/24 HOURS TOPICAL PATCH TD SCH (10:25)
[2022-05-07] MEDS: SODIUM ZIRCONIUM CYCLOSILICATE (LOKELMA) 10 GM PACKET PO SCH (10:28)
[2022-05-07] MEDS: ATORVASTATIN CA 20 MG TABLET (FP) PO SCH (21:09)
[2022-05-07] MEDS: MELATONIN 5 MG TABLETS PO SCH (21:09)
[2022-05-07] MEDS: INSULIN (LEVEMIR) 100 UNITS/ML UNITS SQ SCH (21:11)
[2022-05-07] MEDS: THIAMINE HCL 100 MG TABLET (FP) PO SCH (21:36)
[2022-05-08] MEDS: GABAPENTIN 100 MG CAPSULE PO SCH ×3 (06:07→22:17)
[2022-05-08] MEDS: INSULIN SLIDING SCALE (NOVOLOG) 1 VIAL SQ SCH ×3 (07:02→16:38)
[2022-05-08] MEDS: SEVELAMER CARBONATE 800 MG TAB (FP) PO SCH ×3 (07:02→16:37)
[2022-05-08] MEDS: FERROUS SO4 325 MG TABLET (FP) PO SCH (07:03)
[2022-05-08] MEDS: PRENATAL VITAMINS W/ FOLIC ACID TABLET (FP) PO SCH (09:56)
[2022-05-08] MEDS: CALCIUM CARBONATE 650 MG TABLET PO SCH ×2 (09:57→22:17)
[2022-05-08] MEDS: metoPROLOL SUCCINATE 25 MG TAB.SR.24H (FP) PO SCH (09:57)
[2022-05-08] MEDS: FOLIC ACID 1 MG TABLET (FP) PO SCH (09:57)
[2022-05-08] MEDS: PANTOPRAZOLE 40 MG TABLET PO SCH (09:58)
[2022-05-08] MEDS: ASPIRIN 81 MG CHEWABLE TABLETS PO SCH (09:58)
[2022-05-08] MEDS: levETIRAcetam 500 MG TABLET (FP) PO SCH ×2 (09:58→22:17)
[2022-05-08] MEDS: NIFEdipine E.R. 30 MG TABLET PO SCH (09:58)
[2022-05-08] MEDS: SODIUM BICARBONATE 650 MG TABLET PO SCH ×2 (09:58→22:17)
[2022-05-08] MEDS: SODIUM ZIRCONIUM CYCLOSILICATE (LOKELMA) 10 GM PACKET PO SCH (09:59)
[2022-05-08] MEDS: NICOTINE 7 MG/24 HOURS TOPICAL PATCH TD SCH (09:59)
[2022-05-08] MEDS: INSULIN (LEVEMIR) 100 UNITS/ML UNITS SQ SCH (22:16)
[2022-05-08] MEDS: THIAMINE HCL 100 MG TABLET (FP) PO SCH (22:16)
[2022-05-08] MEDS: ATORVASTATIN CA 20 MG TABLET (FP) PO SCH (22:17)
[2022-05-08] MEDS: MELATONIN 5 MG TABLETS PO SCH (22:17)
[2022-05-09] MEDS: GABAPENTIN 100 MG CAPSULE PO SCH ×3 (06:01→23:08)
[2022-05-09] MEDS: INSULIN SLIDING SCALE (NOVOLOG) 1 VIAL SQ SCH ×3 (06:02→17:41)
[2022-05-09] MEDS: FERROUS SO4 325 MG TABLET (FP) PO SCH (07:07)
[2022-05-09] MEDS: SEVELAMER CARBONATE 800 MG TAB (FP) PO SCH ×3 (07:07→19:08)
[2022-05-09] MEDS: PRENATAL VITAMINS W/ FOLIC ACID TABLET (FP) PO SCH (10:30)
[2022-05-09] MEDS: levETIRAcetam 500 MG TABLET (FP) PO SCH ×2 (10:30→23:07)
[2022-05-09] MEDS: SODIUM ZIRCONIUM CYCLOSILICATE (LOKELMA) 10 GM PACKET PO SCH (10:31)
[2022-05-09] MEDS: PANTOPRAZOLE 40 MG TABLET PO SCH (10:31)
[2022-05-09] MEDS: metoPROLOL SUCCINATE 25 MG TAB.SR.24H (FP) PO SCH (10:31)
[2022-05-09] MEDS: FOLIC ACID 1 MG TABLET (FP) PO SCH (10:31)
[2022-05-09] MEDS: ASPIRIN 81 MG CHEWABLE TABLETS PO SCH (10:31)
[2022-05-09] MEDS: CALCIUM CARBONATE 650 MG TABLET PO SCH ×2 (10:32→23:06)
[2022-05-09] MEDS: NICOTINE 7 MG/24 HOURS TOPICAL PATCH TD SCH (10:32)
[2022-05-09] MEDS: NIFEdipine E.R. 30 MG TABLET PO SCH (10:33)
[2022-05-09] MEDS: SODIUM BICARBONATE 650 MG TABLET PO SCH ×2 (10:33→23:08)
[2022-05-09 12:24] LABS: HEMATOCRIT 27.6 % (35.4-49); HEMOGLOBIN 8.8 GM/dL (11.7-16.9); MCH 25.2 pg (25.7-33.7); MCHC 32.1 g/dl (32.0-35.9); MEAN CELL VOLUME 78.6 fl (80-96); MEAN PLT VOLUME 7.8 fl (7.5-11.1); PLATELET COUNT 499 10^3/uL (134-434); RBC 3.51 M/mm3 (4.00-5.60); RDW 20.6 % (11.9-15.9); WHITE BLOOD COUNT 9.3 K/mm3 (4.0-10.0)
[2022-05-09 12:30] LABS: CHLORIDE 114 mmol/L (98-107); SODIUM 137 mmol/L (136-145)
[2022-05-09 12:36] LABS: CALCIUM 8.5 mg/dL (8.5-10.1)
[2022-05-09 12:37] LABS: ALBUMIN 2.9 g/dl (3.4-5.0); BLOOD UREA NITROGEN 30.6 mg/dL (7-18); CO2 17 mmol/L (21-32); GLUCOSE,RANDOM 98 mg/dL (74-106)
[2022-05-09 12:40] LABS: CREATININE 1.9 mg/dL (0.55-1.3); SGOT/AST 19 U/L (15-37); SGPT/ALT 24 U/L (13-61)
[2022-05-09 12:41] LABS: BILIRUBIN,TOTAL 0.4 mg/dL (0.2-1); TOT PROT 7.3 g/dl (6.4-8.2)
[2022-05-09 12:42] LABS: ALK PHOS 127 U/L (45-117)
[2022-05-09 12:45] LABS: ANION GAP 6 MMOL/L (8-16)
[2022-05-09 14:44] VITALS: BP 115/73; PULSE 73; TEMP 98.2
[2022-05-09] MEDS: ATORVASTATIN CA 20 MG TABLET (FP) PO SCH (23:07)
[2022-05-09] MEDS: INSULIN (LEVEMIR) 100 UNITS/ML UNITS SQ SCH (23:07)
[2022-05-09] MEDS: MELATONIN 5 MG TABLETS PO SCH (23:08)
[2022-05-09] MEDS: THIAMINE HCL 100 MG TABLET (FP) PO SCH (23:08)
[2022-05-10] MEDS: INSULIN SLIDING SCALE (NOVOLOG) 1 VIAL SQ SCH (07:35)
[2022-05-10] MEDS: GABAPENTIN 100 MG CAPSULE PO SCH (07:35)
== END 2022-05-10 07:49 | disposition short-term general hospital (02) | DRG 772 ==
LOC: YASAS 16:43 → Y5N 19:50
PROVIDERS: ADMIT Allergy & Immunology; ATTEND Psychiatry & Neurology Pain Medicine
PROC: HZ42ZZZ Group Counseling for Substance Abuse Treatment, Cognitive-Behavioral (ICD-10-PCS; principal; 2022-05-02)
DX: F10.20 Alcohol dependence, uncomplicated (principal); F14.20 Cocaine dependence, uncomplicated; F17.210 Nicotine dependence, cigarettes, uncomplicated; D64.9 Anemia, unspecified; I25.10 Atherosclerotic heart disease of native coronary artery without angina pectoris; I13.10 Hypertensive heart and chronic kidney disease without heart failure, with stage 1 through stage 4 chronic kidney disease, or unspecified chronic kidney disease; N18.4 Chronic kidney disease, stage 4 (severe); Z95.1 Presence of aortocoronary bypass graft; K86.89 Other specified diseases of pancreas; E78.5 Hyperlipidemia, unspecified; E11.9 Type 2 diabetes mellitus without complications; Z79.4 Long term (current) use of insulin; Z87.19 Personal history of other diseases of the digestive system; Z88.8 Allergy status to other drugs, medicaments and biological substances
CPT/HCPCS: 36415; 80053; 81003; 82962; 85027; 86593; 86780

== ENCOUNTER 2022-05-09 16:29 | Inpatient (IN) | payer OTHER ==
[2022-05-09 17:10] VITALS: BMI 23.6
[2022-05-09 19:07] LABS: EPI CELLS 1 /uL (0-25.1); HYALINE CASTS 0 /uL (0-3.1); URINE APPEARANCE CLEAR; URINE BACTERIA 4 /uL (0-1359); URINE BILIRUBIN NEGATIVE (NEGATIVE); URINE COLOR YELLOW; URINE GLUCOSE (UA) NEGATIVE (NEGATIVE); URINE KETONE NEGATIVE (NEGATIVE); URINE LEUK ESTERASE TRACE (NEGATIVE); URINE NITRITE NEGATIVE (NEGATIVE); URINE PROTEIN NEGATIVE (NEGATIVE); URINE RBC 14 /uL (0-23.9); URINE UROBILINOGEN 0.2 mg/dL (0.2-1.0); URINE WBC 12 /uL (0-25.8)
[2022-05-09 19:07] LABS: CHLORIDE 112 mmol/L (98-107); SODIUM 133 mmol/L (136-145)
[2022-05-09 19:11] LABS: ALBUMIN 2.8 g/dl (3.4-5.0); BLOOD UREA NITROGEN 28.9 mg/dL (7-18); CALCIUM 8.1 mg/dL (8.5-10.1); CO2 17 mmol/L (21-32); GLUCOSE,RANDOM 130 mg/dL (74-106); MAGNESIUM 1.8 mg/dL (1.8-2.4)
[2022-05-09 19:14] LABS: SGOT/AST 16 U/L (15-37); SGPT/ALT 22 U/L (13-61)
[2022-05-09 19:16] LABS: BILIRUBIN,TOTAL 0.1 mg/dL (0.2-1); TOT PROT 6.9 g/dl (6.4-8.2)
[2022-05-09 19:17] LABS: ALK PHOS 122 U/L (45-117)
[2022-05-09 19:32] LABS: ANION GAP 4 MMOL/L (8-16)
[2022-05-09 19:43] LABS: BASO % 0.7 % (0-2.0); EOS % 4.4 % (0-4.5); HEMOGLOBIN 7.6 GM/dL (11.7-16.9); LYMPH % 19.1 % (8-40); MCH 24.3 pg (25.7-33.7); MCHC 31.7 g/dl (32.0-35.9); MEAN CELL VOLUME 76.8 fl (80-96); MEAN PLT VOLUME 8.4 fl (7.5-11.1); MONO % 5.5 % (3.8-10.2); NEUT % 70.3 % (42.8-82.8); PLATELET COUNT 452 10^3/uL (134-434); RBC 3.12 M/mm3 (4.00-5.60); RDW 20.2 % (11.9-15.9); WHITE BLOOD COUNT 8.6 K/mm3 (4.0-10.0)
[2022-05-09] MEDS ORDERED: CALCIUM GLUCONATE 10% - 1,000 MG/10 ML VIAL IVPB ONE (21:27)
[2022-05-09] MEDS ORDERED: DEXTROSE 50%-WATER - 25 GM/50 ML VIAL IVPUSH ONE (21:29)
[2022-05-09] MEDS ORDERED: INSULIN REGULAR HUMAN 100 UNITS/ML *VIAL IVPUSH ONE (21:29)
[2022-05-09] MEDS ORDERED: DEXTROSE 50%-WATER 25 GM/50 ML DISP.SYRIN ONE (21:41)
[2022-05-09] MEDS ORDERED: CALCIUM GLUCONATE 10% - 1,000 MG/10 ML VIAL ONE (21:41)
[2022-05-09] MEDS ORDERED: SODIUM ZIRCONIUM CYCLOSILICATE (LOKELMA) 5 GM PACKET ONE (21:41)
[2022-05-09] MEDS ORDERED: SODIUM ZIRCONIUM CYCLOSILICATE (LOKELMA) 5 GM PACKET PO ONE (21:53)
[2022-05-10] MEDS ORDERED: DEXTROSE 50%-WATER 25 GM/50 ML DISP.SYRIN ONE (00:30)
[2022-05-10 00:34] LABS: CHLORIDE 115 mmol/L (98-107); SODIUM 137 mmol/L (136-145)
[2022-05-10 00:38] LABS: ANION GAP 5 MMOL/L (8-16); CALCIUM 8.2 mg/dL (8.5-10.1); CO2 17 mmol/L (21-32)
[2022-05-10 00:39] LABS: BLOOD UREA NITROGEN 29.6 mg/dL (7-18)
[2022-05-10 00:42] LABS: CREATININE 2.2 mg/dL (0.55-1.3)
[2022-05-10] MEDS ORDERED: SODIUM CHLORIDE 0.9% 500 ML INFUS.BAG IV ONE (00:47)
[2022-05-10 01:14] LABS: GLUCOSE,RANDOM 38 mg/dL (74-106)
[2022-05-10] MEDS ORDERED: DEXTROSE 50%-WATER - 25 GM/50 ML VIAL IVPUSH ONE ×2 (01:15)
[2022-05-10] MEDS ORDERED: MAG HYDROX/AL HYDROX/SIMETH 30 ML UNIT-DOSE CUP PO PRN (06:12)
[2022-05-10] MEDS ORDERED: LORazepam 1 MG TABLET PO PRN (06:15)
[2022-05-10] MEDS ORDERED: SEVELAMER CARBONATE 800 MG TAB (FP) PO SCH (06:15)
[2022-05-10] MEDS: GABAPENTIN 100 MG CAPSULE PO SCH ×3 (06:39→21:54)
[2022-05-10] MEDS: HEPARIN NA (PORCINE) 5,000 UNITS/ML 1ML VIAL SQ SCH ×3 (06:39→21:54)
[2022-05-10] MEDS ORDERED: LACTATED RINGERS SOLUTION 1,000 ML/1,000 ML INFUS.BAG IV SCH (08:15)
[2022-05-10 09:03] LABS: MAGNESIUM 1.7 mg/dL (1.8-2.4)
[2022-05-10 09:06] LABS: IRON SERUM 43 ug/dL (50-175); PHOSPHOROUS 4.5 mg/dL (2.5-4.9); TOTAL IRON BINDING CAPACITY 327 ug/dL (250-450)
[2022-05-10 09:10] LABS: LDH 147 U/L (87-246)
[2022-05-10] MEDS ORDERED: SODIUM ZIRCONIUM CYCLOSILICATE (LOKELMA) 5 GM PACKET PO SCH (10:00)
[2022-05-10] MEDS ORDERED: THIAMINE HCL 100 MG TABLET (FP) PO SCH (10:00)
[2022-05-10] MEDS ORDERED: CALCIUM CARBONATE 650 MG TABLET PO SCH (10:00)
[2022-05-10] MEDS ORDERED: SODIUM BICARBONATE 650 MG TABLET PO SCH (10:00)
[2022-05-10] MEDS: levETIRAcetam 500 MG TABLET (FP) PO SCH ×2 (11:45→21:54)
[2022-05-10] MEDS: ASPIRIN 81 MG CHEWABLE TABLETS PO SCH (11:45)
[2022-05-10] MEDS: THIAMINE HCL 100 MG TABLET (FP) PO SCH (11:45)
[2022-05-10] MEDS: METOPROLOL TARTRATE 25 MG TABLET (FP) PO SCH (11:46)
[2022-05-10] MEDS: PANTOPRAZOLE 40 MG TABLET PO SCH (11:46)
[2022-05-10] MEDS: NIFEdipine E.R. 30 MG TABLET PO SCH (11:46)
[2022-05-10] MEDS: FOLIC ACID 1 MG TABLET (FP) PO SCH (11:46)
[2022-05-10] MEDS: FERROUS SO4 325 MG TABLET (FP) PO SCH (11:46)
[2022-05-10] MEDS: INSULIN (LEVEMIR) 100 UNITS/ML UNITS SQ SCH ×2 (11:49→21:54)
[2022-05-10] MEDS: SEVELAMER CARBONATE 800 MG TAB (FP) PO SCH ×2 (11:55→18:32)
[2022-05-10] MEDS: INSULIN SLIDING SCALE (NOVOLOG) 1 VIAL SQ SCH ×3 (11:59→21:55)
[2022-05-10] MEDS: CALCIUM (OYSTER SHELL) 500 MG TABLET (FP) PO SCH ×2 (12:59→21:54)
[2022-05-10] MEDS: SODIUM BICARBONATE 650 MG TABLET PO SCH ×2 (18:32→22:50)
[2022-05-10] MEDS ORDERED: SODIUM ZIRCONIUM CYCLOSILICATE (LOKELMA) 5 GM PACKET PO ONE (21:30)
[2022-05-10] MEDS: ATORVASTATIN CA 20 MG TABLET (FP) PO SCH (21:54)
[2022-05-11] MEDS: HEPARIN NA (PORCINE) 5,000 UNITS/ML 1ML VIAL SQ SCH ×3 (06:32→21:17)
[2022-05-11] MEDS: GABAPENTIN 100 MG CAPSULE PO SCH (06:32)
[2022-05-11] MEDS: SODIUM BICARBONATE 650 MG TABLET PO SCH ×3 (06:32→21:17)
[2022-05-11] MEDS: INSULIN (LEVEMIR) 100 UNITS/ML UNITS SQ SCH ×2 (06:34→21:17)
[2022-05-11] MEDS: INSULIN SLIDING SCALE (NOVOLOG) 1 VIAL SQ SCH ×4 (06:40→21:18)
[2022-05-11] MEDS: SEVELAMER CARBONATE 800 MG TAB (FP) PO SCH ×3 (08:52→17:39)
[2022-05-11] MEDS: PANTOPRAZOLE 40 MG TABLET PO SCH (09:57)
[2022-05-11] MEDS: CALCIUM (OYSTER SHELL) 500 MG TABLET (FP) PO SCH ×2 (09:57→21:20)
[2022-05-11] MEDS: FOLIC ACID 1 MG TABLET (FP) PO SCH (09:57)
[2022-05-11] MEDS: ASPIRIN 81 MG CHEWABLE TABLETS PO SCH (09:57)
[2022-05-11] MEDS: levETIRAcetam 500 MG TABLET (FP) PO SCH ×2 (09:58→21:17)
[2022-05-11] MEDS: NIFEdipine E.R. 30 MG TABLET PO SCH (09:58)
[2022-05-11] MEDS: METOPROLOL TARTRATE 25 MG TABLET (FP) PO SCH (09:58)
[2022-05-11] MEDS: FERROUS SO4 325 MG TABLET (FP) PO SCH (09:58)
[2022-05-11] MEDS: THIAMINE HCL 100 MG TABLET (FP) PO SCH (09:58)
[2022-05-11 14:06] LABS: BASO % 0.6 % (0-2.0); HEMATOCRIT 25.9 % (35.4-49); HEMOGLOBIN 8.3 GM/dL (11.7-16.9); LYMPH % 17.3 % (8-40); MCH 24.9 pg (25.7-33.7); MCHC 32.3 g/dl (32.0-35.9); MEAN CELL VOLUME 77.1 fl (80-96); MONO % 4.3 % (3.8-10.2); NEUT % 73.8 % (42.8-82.8); PLATELET COUNT 501 10^3/uL (134-434); RBC 3.35 M/mm3 (4.00-5.60); RDW 20.2 % (11.9-15.9); WHITE BLOOD COUNT 7.6 K/mm3 (4.0-10.0)
[2022-05-11] MEDS: GABAPENTIN 300 MG CAPSULE PO SCH ×2 (14:21→21:17)
[2022-05-11 14:22] LABS: ALBUMIN 2.7 g/dl (3.4-5.0); BLOOD UREA NITROGEN 30.9 mg/dL (7-18); CALCIUM 8.2 mg/dL (8.5-10.1); MAGNESIUM 1.6 mg/dL (1.8-2.4)
[2022-05-11 14:25] LABS: BILIRUBIN,TOTAL 0.4 mg/dL (0.2-1)
[2022-05-11 14:26] LABS: TOT PROT 6.7 g/dl (6.4-8.2)
[2022-05-11 14:27] LABS: CREATININE 2.5 mg/dL (0.55-1.3)
[2022-05-11] MEDS ORDERED: MAGNESIUM SULF 50% (8.12 MEQ/2 ML-1 GM VIAL) IVPB ONE (14:43)
[2022-05-11] MEDS ORDERED: ACETAMINOPHEN 325 MG TABLET (FP) PO PRN (14:45)
[2022-05-11] MEDS ORDERED: MAGNESIUM OXIDE 400 MG TABLET (FP) PO ONE (15:41)
[2022-05-11] MEDS: SODIUM ZIRCONIUM CYCLOSILICATE (LOKELMA) 5 GM PACKET PO SCH (15:54)
[2022-05-11] MEDS ORDERED: INSULIN (NOVOLOG) ASPART 100 UNITS/ML 10ML VIAL ONE (21:08)
[2022-05-11] MEDS: ATORVASTATIN CA 20 MG TABLET (FP) PO SCH (21:17)
[2022-05-12] MEDS: SODIUM BICARBONATE 650 MG TABLET PO SCH ×3 (06:14→21:11)
[2022-05-12] MEDS: GABAPENTIN 300 MG CAPSULE PO SCH ×3 (06:14→21:11)
[2022-05-12] MEDS: HEPARIN NA (PORCINE) 5,000 UNITS/ML 1ML VIAL SQ SCH ×3 (06:14→21:12)
[2022-05-12] MEDS: INSULIN SLIDING SCALE (NOVOLOG) 1 VIAL SQ SCH ×4 (06:14→21:17)
[2022-05-12] MEDS: SEVELAMER CARBONATE 800 MG TAB (FP) PO SCH ×3 (08:39→17:11)
[2022-05-12] MEDS: levETIRAcetam 500 MG TABLET (FP) PO SCH ×2 (09:38→21:11)
[2022-05-12] MEDS: NIFEdipine E.R. 30 MG TABLET PO SCH (09:38)
[2022-05-12] MEDS: FERROUS SO4 325 MG TABLET (FP) PO SCH (09:38)
[2022-05-12] MEDS: ASPIRIN 81 MG CHEWABLE TABLETS PO SCH (09:38)
[2022-05-12] MEDS: FOLIC ACID 1 MG TABLET (FP) PO SCH (09:38)
[2022-05-12] MEDS: CALCIUM (OYSTER SHELL) 500 MG TABLET (FP) PO SCH ×2 (09:38→21:22)
[2022-05-12] MEDS: THIAMINE HCL 100 MG TABLET (FP) PO SCH (09:38)
[2022-05-12] MEDS: PANTOPRAZOLE 40 MG TABLET PO SCH (09:39)
[2022-05-12] MEDS: SODIUM ZIRCONIUM CYCLOSILICATE (LOKELMA) 5 GM PACKET PO SCH (09:39)
[2022-05-12] MEDS: METOPROLOL TARTRATE 25 MG TABLET (FP) PO SCH (09:39)
[2022-05-12 16:07] LABS: BLOOD UREA NITROGEN 32.4 mg/dL (7-18); CALCIUM 8.1 mg/dL (8.5-10.1)
[2022-05-12 16:11] LABS: CREATININE 2.6 mg/dL (0.55-1.3)
[2022-05-12 20:03] LABS: MAGNESIUM 1.5 mg/dL (1.8-2.4)
[2022-05-12] MEDS: ATORVASTATIN CA 20 MG TABLET (FP) PO SCH (21:11)
[2022-05-12] MEDS ORDERED: INSULIN (LEVEMIR) 100 UNITS/ML UNITS SQ SCH (22:00)
[2022-05-13] MEDS: SODIUM BICARBONATE 650 MG TABLET PO SCH ×3 (06:15→21:36)
[2022-05-13] MEDS: GABAPENTIN 300 MG CAPSULE PO SCH ×3 (06:15→21:36)
[2022-05-13] MEDS: HEPARIN NA (PORCINE) 5,000 UNITS/ML 1ML VIAL SQ SCH ×3 (06:15→21:36)
[2022-05-13] MEDS: INSULIN (LEVEMIR) 100 UNITS/ML UNITS SQ SCH (06:17)
[2022-05-13] MEDS: INSULIN SLIDING SCALE (NOVOLOG) 1 VIAL SQ SCH ×4 (06:28→21:40)
[2022-05-13] MEDS: SEVELAMER CARBONATE 800 MG TAB (FP) PO SCH ×3 (08:33→16:49)
[2022-05-13] MEDS: NIFEdipine E.R. 30 MG TABLET PO SCH (09:19)
[2022-05-13] MEDS: METOPROLOL TARTRATE 25 MG TABLET (FP) PO SCH (09:19)
[2022-05-13] MEDS: ASPIRIN 81 MG CHEWABLE TABLETS PO SCH (09:19)
[2022-05-13] MEDS: PANTOPRAZOLE 40 MG TABLET PO SCH (09:19)
[2022-05-13] MEDS: FERROUS SO4 325 MG TABLET (FP) PO SCH (09:19)
[2022-05-13] MEDS: THIAMINE HCL 100 MG TABLET (FP) PO SCH (09:19)
[2022-05-13] MEDS: FOLIC ACID 1 MG TABLET (FP) PO SCH (09:19)
[2022-05-13] MEDS: levETIRAcetam 500 MG TABLET (FP) PO SCH ×2 (09:19→21:36)
[2022-05-13] MEDS: SODIUM ZIRCONIUM CYCLOSILICATE (LOKELMA) 5 GM PACKET PO SCH (09:19)
[2022-05-13] MEDS: CALCIUM (OYSTER SHELL) 500 MG TABLET (FP) PO SCH ×2 (09:20→21:37)
[2022-05-13] MEDS ORDERED: ERGOCALCIFEROL (VIT D2) 50,000 UNIT (1.25 MG) CAPSULE PO SCH (10:00)
[2022-05-13] MEDS ORDERED: INSULIN (NOVOLOG) ASPART 100 UNITS/ML 10ML VIAL ONE (21:16)
[2022-05-13] MEDS: ATORVASTATIN CA 20 MG TABLET (FP) PO SCH (21:36)
[2022-05-14] MEDS: INSULIN SLIDING SCALE (NOVOLOG) 1 VIAL SQ SCH ×4 (06:33→21:25)
[2022-05-14] MEDS: HEPARIN NA (PORCINE) 5,000 UNITS/ML 1ML VIAL SQ SCH ×3 (06:33→21:24)
[2022-05-14] MEDS: SODIUM BICARBONATE 650 MG TABLET PO SCH ×3 (06:33→21:23)
[2022-05-14] MEDS: INSULIN (LEVEMIR) 100 UNITS/ML UNITS SQ SCH (06:33)
[2022-05-14] MEDS: GABAPENTIN 300 MG CAPSULE PO SCH ×3 (06:33→21:24)
[2022-05-14] MEDS: SEVELAMER CARBONATE 800 MG TAB (FP) PO SCH ×3 (08:10→17:11)
[2022-05-14 09:13] LABS: HEMOGLOBIN 9.7 GM/dL (11.7-16.9); MCH 24.4 pg (25.7-33.7); MCHC 31.3 g/dl (32.0-35.9); MEAN PLT VOLUME 8.1 fl (7.5-11.1); PLATELET COUNT 543 10^3/uL (134-434); RBC 3.97 M/mm3 (4.00-5.60); WHITE BLOOD COUNT 10.1 K/mm3 (4.0-10.0)
[2022-05-14 09:50] LABS: CALCIUM 9.3 mg/dL (8.5-10.1)
[2022-05-14 09:51] LABS: CREATININE 2.3 mg/dL (0.55-1.3); MAGNESIUM 1.7 mg/dL (1.8-2.4); PHOSPHOROUS 4.4 mg/dL (2.5-4.9)
[2022-05-14] MEDS: ASPIRIN 81 MG CHEWABLE TABLETS PO SCH (09:54)
[2022-05-14] MEDS: FERROUS SO4 325 MG TABLET (FP) PO SCH (09:54)
[2022-05-14 09:55] LABS: BLOOD UREA NITROGEN 31.7 mg/dL (7-18)
[2022-05-14] MEDS: FOLIC ACID 1 MG TABLET (FP) PO SCH (09:55)
[2022-05-14] MEDS: SODIUM ZIRCONIUM CYCLOSILICATE (LOKELMA) 5 GM PACKET PO SCH ×3 (09:55→21:24)
[2022-05-14] MEDS: METOPROLOL TARTRATE 25 MG TABLET (FP) PO SCH (09:55)
[2022-05-14] MEDS: levETIRAcetam 500 MG TABLET (FP) PO SCH ×2 (09:55→21:23)
[2022-05-14] MEDS: CALCIUM (OYSTER SHELL) 500 MG TABLET (FP) PO SCH ×2 (09:56→21:27)
[2022-05-14] MEDS: NIFEdipine E.R. 30 MG TABLET PO SCH (09:56)
[2022-05-14] MEDS: THIAMINE HCL 100 MG TABLET (FP) PO SCH (09:57)
[2022-05-14] MEDS: PANTOPRAZOLE 40 MG TABLET PO SCH (09:57)
[2022-05-14] MEDS ORDERED: MAGNESIUM SULF 50% (8.12 MEQ/2 ML-1 GM VIAL) IVPB ONE (10:17)
[2022-05-14] MEDS ORDERED: IRON SUCROSE INJECTION 200 MG in SODIUM CHLORIDE 90 ML IVPB ONE (17:00)
[2022-05-14] MEDS: ATORVASTATIN CA 20 MG TABLET (FP) PO SCH (21:23)
[2022-05-15] MEDS: INSULIN (LEVEMIR) 100 UNITS/ML UNITS SQ SCH (06:04)
[2022-05-15] MEDS: SODIUM BICARBONATE 650 MG TABLET PO SCH ×3 (06:04→21:58)
[2022-05-15] MEDS: HEPARIN NA (PORCINE) 5,000 UNITS/ML 1ML VIAL SQ SCH ×3 (06:04→21:56)
[2022-05-15] MEDS: GABAPENTIN 300 MG CAPSULE PO SCH ×3 (06:05→21:57)
[2022-05-15] MEDS: INSULIN SLIDING SCALE (NOVOLOG) 1 VIAL SQ SCH ×4 (07:24→21:40)
[2022-05-15] MEDS: SEVELAMER CARBONATE 800 MG TAB (FP) PO SCH ×3 (08:35→17:16)
[2022-05-15] MEDS: PANTOPRAZOLE 40 MG TABLET PO SCH (09:18)
[2022-05-15] MEDS: levETIRAcetam 500 MG TABLET (FP) PO SCH ×2 (09:18→21:57)
[2022-05-15] MEDS: ASPIRIN 81 MG CHEWABLE TABLETS PO SCH (09:18)
[2022-05-15] MEDS: THIAMINE HCL 100 MG TABLET (FP) PO SCH (09:18)
[2022-05-15] MEDS: SODIUM ZIRCONIUM CYCLOSILICATE (LOKELMA) 5 GM PACKET PO SCH ×2 (09:18→21:55)
[2022-05-15] MEDS: FERROUS SO4 325 MG TABLET (FP) PO SCH (09:18)
[2022-05-15] MEDS: FOLIC ACID 1 MG TABLET (FP) PO SCH (09:18)
[2022-05-15] MEDS: NIFEdipine E.R. 30 MG TABLET PO SCH (09:18)
[2022-05-15] MEDS: METOPROLOL TARTRATE 25 MG TABLET (FP) PO SCH (09:18)
[2022-05-15] MEDS: CALCIUM (OYSTER SHELL) 500 MG TABLET (FP) PO SCH ×2 (09:19→21:57)
[2022-05-15 10:07] LABS: HEMATOCRIT 27.2 % (35.4-49); HEMOGLOBIN 8.7 GM/dL (11.7-16.9); MCH 24.7 pg (25.7-33.7); MCHC 31.9 g/dl (32.0-35.9); MEAN CELL VOLUME 77.4 fl (80-96); MEAN PLT VOLUME 8.4 fl (7.5-11.1); PLATELET COUNT 443 10^3/uL (134-434); RBC 3.51 M/mm3 (4.00-5.60); RDW 20.7 % (11.9-15.9); WHITE BLOOD COUNT 9.6 K/mm3 (4.0-10.0)
[2022-05-15 10:42] LABS: CALCIUM 8.4 mg/dL (8.5-10.1)
[2022-05-15 10:44] LABS: ALBUMIN 2.7 g/dl (3.4-5.0); BLOOD UREA NITROGEN 33.1 mg/dL (7-18); MAGNESIUM 1.5 mg/dL (1.8-2.4)
[2022-05-15 10:47] LABS: CREATININE 2.2 mg/dL (0.55-1.3); PHOSPHOROUS 4.1 mg/dL (2.5-4.9)
[2022-05-15 10:48] LABS: BILIRUBIN,TOTAL 0.2 mg/dL (0.2-1); TOT PROT 6.9 g/dl (6.4-8.2)
[2022-05-15] MEDS ORDERED: MAGNESIUM OXIDE 400 MG TABLET (FP) PO ONE (13:00)
[2022-05-15] MEDS ORDERED: EPOETIN ALFA-EPBX 10,000 UNIT/ML VIAL SQ ONE (13:00)
[2022-05-15] MEDS: ATORVASTATIN CA 20 MG TABLET (FP) PO SCH (21:57)
[2022-05-16] MEDS: INSULIN SLIDING SCALE (NOVOLOG) 1 VIAL SQ SCH ×4 (06:11→22:46)
[2022-05-16] MEDS: HEPARIN NA (PORCINE) 5,000 UNITS/ML 1ML VIAL SQ SCH ×3 (06:11→22:13)
[2022-05-16] MEDS: SODIUM BICARBONATE 650 MG TABLET PO SCH ×3 (06:12→22:13)
[2022-05-16] MEDS: GABAPENTIN 300 MG CAPSULE PO SCH ×3 (06:12→22:13)
[2022-05-16] MEDS: INSULIN (LEVEMIR) 100 UNITS/ML UNITS SQ SCH (06:16)
[2022-05-16] MEDS: SEVELAMER CARBONATE 800 MG TAB (FP) PO SCH ×3 (08:17→17:10)
[2022-05-16] MEDS: FOLIC ACID 1 MG TABLET (FP) PO SCH (09:56)
[2022-05-16] MEDS: ASPIRIN 81 MG CHEWABLE TABLETS PO SCH (09:56)
[2022-05-16] MEDS: FERROUS SO4 325 MG TABLET (FP) PO SCH (09:56)
[2022-05-16] MEDS: levETIRAcetam 500 MG TABLET (FP) PO SCH ×2 (09:56→22:13)
[2022-05-16] MEDS: SODIUM ZIRCONIUM CYCLOSILICATE (LOKELMA) 5 GM PACKET PO SCH ×2 (09:57→22:13)
[2022-05-16] MEDS: METOPROLOL TARTRATE 25 MG TABLET (FP) PO SCH (09:57)
[2022-05-16] MEDS: CALCIUM (OYSTER SHELL) 500 MG TABLET (FP) PO SCH ×2 (09:58→22:13)
[2022-05-16] MEDS: PANTOPRAZOLE 40 MG TABLET PO SCH (09:58)
[2022-05-16] MEDS: NIFEdipine E.R. 30 MG TABLET PO SCH (09:58)
[2022-05-16] MEDS: THIAMINE HCL 100 MG TABLET (FP) PO SCH (09:58)
[2022-05-16 10:21] LABS: HEMATOCRIT 25.4 % (35.4-49); HEMOGLOBIN 8.3 GM/dL (11.7-16.9); MCH 25.1 pg (25.7-33.7); MCHC 32.5 g/dl (32.0-35.9); MEAN CELL VOLUME 77.1 fl (80-96); PLATELET COUNT 380 10^3/uL (134-434); WHITE BLOOD COUNT 7.6 K/mm3 (4.0-10.0)
[2022-05-16 10:44] LABS: CHLORIDE 113 mmol/L (98-107); SODIUM 139 mmol/L (136-145)
[2022-05-16 10:48] LABS: ALBUMIN 2.6 g/dl (3.4-5.0); ANION GAP 7 MMOL/L (8-16); BLOOD UREA NITROGEN 30.4 mg/dL (7-18); CO2 19 mmol/L (21-32); GLUCOSE,RANDOM 222 mg/dL (74-106); MAGNESIUM 1.6 mg/dL (1.8-2.4)
[2022-05-16 10:50] LABS: CREATININE 2.1 mg/dL (0.55-1.3); IRON SERUM 26 ug/dL (50-175); SGOT/AST 17 U/L (15-37); SGPT/ALT 19 U/L (13-61)
[2022-05-16 10:52] LABS: BILIRUBIN,TOTAL < 0.1 mg/dL (0.2-1); TOT PROT 6.3 g/dl (6.4-8.2); TOTAL IRON BINDING CAPACITY 319 ug/dL (250-450)
[2022-05-16 10:54] LABS: ALK PHOS 118 U/L (45-117)
[2022-05-16] MEDS ORDERED: MAGNESIUM 2GM/50ML STERILE WATER IVPB IVPB ONE (14:36)
[2022-05-16] MEDS ORDERED: MAGNESIUM OXIDE 400 MG TABLET (FP) PO ONE (15:08)
[2022-05-16] MEDS: ATORVASTATIN CA 20 MG TABLET (FP) PO SCH (22:12)
[2022-05-17] MEDS: SODIUM BICARBONATE 650 MG TABLET PO SCH ×3 (05:44→21:24)
[2022-05-17] MEDS: GABAPENTIN 300 MG CAPSULE PO SCH ×3 (05:44→21:24)
[2022-05-17] MEDS: INSULIN SLIDING SCALE (NOVOLOG) 1 VIAL SQ SCH ×4 (06:04→21:34)
[2022-05-17] MEDS: INSULIN (LEVEMIR) 100 UNITS/ML UNITS SQ SCH (06:04)
[2022-05-17] MEDS: THIAMINE HCL 100 MG TABLET (FP) PO SCH (10:00)
[2022-05-17] MEDS: SEVELAMER CARBONATE 800 MG TAB (FP) PO SCH ×4 (10:00→19:10)
[2022-05-17] MEDS: PANTOPRAZOLE 40 MG TABLET PO SCH (10:00)
[2022-05-17] MEDS: NIFEdipine E.R. 30 MG TABLET PO SCH (10:00)
[2022-05-17] MEDS: levETIRAcetam 500 MG TABLET (FP) PO SCH ×2 (10:00→21:24)
[2022-05-17] MEDS: METOPROLOL TARTRATE 25 MG TABLET (FP) PO SCH (10:00)
[2022-05-17] MEDS: ASPIRIN 81 MG CHEWABLE TABLETS PO SCH (10:01)
[2022-05-17] MEDS: FOLIC ACID 1 MG TABLET (FP) PO SCH (10:01)
[2022-05-17] MEDS: FERROUS SO4 325 MG TABLET (FP) PO SCH (10:01)
[2022-05-17] MEDS: SODIUM ZIRCONIUM CYCLOSILICATE (LOKELMA) 5 GM PACKET PO SCH ×2 (10:05→23:03)
[2022-05-17] MEDS: CALCIUM (OYSTER SHELL) 500 MG TABLET (FP) PO SCH ×2 (10:08→21:25)
[2022-05-17] MEDS ORDERED: DEXTROSE 4 GM TAB.CHEW PO ONE ×2 (12:15)
[2022-05-17] MEDS ORDERED: LIDOCAINE HCL 2% (20ML MULTI-DOSE VIAL) ONE (14:29)
[2022-05-17] MEDS ORDERED: MIDAZOLAM HCL 2 MG/2 ML SINGLE DOSE VIAL ONE ×2 (16:28→16:45)
[2022-05-17] MEDS ORDERED: ceFAZolin SODIUM 1 GM VIAL IVPB ONE (16:29)
[2022-05-17] MEDS ORDERED: LIDOCAINE HCL 2% (50ML VIAL) INF ONE (16:30)
[2022-05-17] MEDS ORDERED: IRON SUCROSE INJECTION 200 MG in SODIUM CHLORIDE 90 ML IVPB ONE ×2 (17:00→19:00)
[2022-05-17] MEDS ORDERED: MAG HYDROX/AL HYDROX/SIMETH 30 ML UNIT-DOSE CUP PO PRN (17:55)
[2022-05-17] MEDS ORDERED: ACETAMINOPHEN 325 MG TABLET (FP) PO PRN (17:55)
[2022-05-17] MEDS ORDERED: morphine SULFATE 4 MG/ML VIAL IVPUSH ONE (19:10)
[2022-05-17] MEDS ORDERED: INSULIN (NOVOLOG) ASPART 100 UNITS/ML 10ML VIAL ONE (21:22)
[2022-05-17] MEDS: ATORVASTATIN CA 20 MG TABLET (FP) PO SCH (21:24)
[2022-05-17] MEDS: HEPARIN NA (PORCINE) 5,000 UNITS/ML 1ML VIAL SQ SCH (21:25)
[2022-05-18] MEDS ORDERED: morphine SULFATE 4 MG/ML VIAL IVPUSH ONE (02:23)
[2022-05-18] MEDS: INSULIN (LEVEMIR) 100 UNITS/ML UNITS SQ SCH (06:37)
[2022-05-18] MEDS: INSULIN SLIDING SCALE (NOVOLOG) 1 VIAL SQ SCH ×4 (06:37→22:38)
[2022-05-18] MEDS: SODIUM BICARBONATE 650 MG TABLET PO SCH ×3 (06:38→22:36)
[2022-05-18] MEDS: GABAPENTIN 300 MG CAPSULE PO SCH ×3 (06:38→22:37)
[2022-05-18] MEDS ORDERED: SEVELAMER CARBONATE 800 MG TAB (FP) PO SCH (08:00)
[2022-05-18] MEDS: SEVELAMER CARBONATE 800 MG TAB (FP) PO SCH ×3 (08:19→16:54)
[2022-05-18 09:48] LABS: HEMATOCRIT 24.7 % (35.4-49); HEMOGLOBIN 8.3 GM/dL (11.7-16.9); MCH 25.6 pg (25.7-33.7); MCHC 33.4 g/dl (32.0-35.9); MEAN CELL VOLUME 76.4 fl (80-96); MEAN PLT VOLUME 8.2 fl (7.5-11.1); PLATELET COUNT 355 10^3/uL (134-434); RBC 3.23 M/mm3 (4.00-5.60); RDW 21.5 % (11.9-15.9); WHITE BLOOD COUNT 7.9 K/mm3 (4.0-10.0)
[2022-05-18] MEDS: NIFEdipine E.R. 30 MG TABLET PO SCH (10:12)
[2022-05-18] MEDS: PANTOPRAZOLE 40 MG TABLET PO SCH (10:12)
[2022-05-18] MEDS: THIAMINE HCL 100 MG TABLET (FP) PO SCH (10:12)
[2022-05-18] MEDS: ASPIRIN 81 MG CHEWABLE TABLETS PO SCH (10:12)
[2022-05-18] MEDS: FOLIC ACID 1 MG TABLET (FP) PO SCH (10:13)
[2022-05-18] MEDS: FERROUS SO4 325 MG TABLET (FP) PO SCH (10:13)
[2022-05-18] MEDS: CALCIUM (OYSTER SHELL) 500 MG TABLET (FP) PO SCH ×2 (10:13→22:37)
[2022-05-18] MEDS: METOPROLOL TARTRATE 25 MG TABLET (FP) PO SCH (10:13)
[2022-05-18] MEDS: SODIUM ZIRCONIUM CYCLOSILICATE (LOKELMA) 5 GM PACKET PO SCH ×2 (10:13→22:36)
[2022-05-18] MEDS: levETIRAcetam 500 MG TABLET (FP) PO SCH ×2 (10:13→22:37)
[2022-05-18 10:14] LABS: CALCIUM 8.1 mg/dL (8.5-10.1)
[2022-05-18 10:15] LABS: ALBUMIN 2.6 g/dl (3.4-5.0); BLOOD UREA NITROGEN 25.3 mg/dL (7-18); MAGNESIUM 1.4 mg/dL (1.8-2.4)
[2022-05-18 10:17] LABS: CREATININE 2.1 mg/dL (0.55-1.3)
[2022-05-18 10:18] LABS: BILIRUBIN,TOTAL 0.2 mg/dL (0.2-1); TOT PROT 6.3 g/dl (6.4-8.2)
[2022-05-18 10:20] LABS: PHOSPHOROUS 4.3 mg/dL (2.5-4.9)
[2022-05-18] MEDS: HYDROmorphone HCl 2 MG/ML VIAL IVPB PRN ×3 (10:26→20:46)
[2022-05-18] MEDS ORDERED: MAGNESIUM OXIDE 400 MG TABLET (FP) PO ONE (11:15)
[2022-05-18] MEDS ORDERED: MAGNESIUM 2GM/50ML STERILE WATER IVPB IVPB ONE (15:12)
[2022-05-18] MEDS: ATORVASTATIN CA 20 MG TABLET (FP) PO SCH (22:37)
[2022-05-19] MEDS: HYDROmorphone HCl 2 MG/ML VIAL IVPB PRN ×2 (02:19→06:34)
[2022-05-19] MEDS: GABAPENTIN 300 MG CAPSULE PO SCH ×3 (06:34→21:10)
[2022-05-19] MEDS: SODIUM BICARBONATE 650 MG TABLET PO SCH ×3 (06:34→21:12)
[2022-05-19] MEDS: INSULIN SLIDING SCALE (NOVOLOG) 1 VIAL SQ SCH ×4 (06:52→21:16)
[2022-05-19] MEDS: INSULIN (LEVEMIR) 100 UNITS/ML UNITS SQ SCH (06:52)
[2022-05-19] MEDS ORDERED: ACETAMINOPHEN 325 MG TABLET (FP) PO PRN (08:24)
[2022-05-19] MEDS: SEVELAMER CARBONATE 800 MG TAB (FP) PO SCH ×3 (08:34→17:08)
[2022-05-19] MEDS: levETIRAcetam 500 MG TABLET (FP) PO SCH ×2 (09:26→21:09)
[2022-05-19] MEDS: FOLIC ACID 1 MG TABLET (FP) PO SCH (09:26)
[2022-05-19] MEDS: FERROUS SO4 325 MG TABLET (FP) PO SCH (09:26)
[2022-05-19] MEDS: PANTOPRAZOLE 40 MG TABLET PO SCH (09:26)
[2022-05-19] MEDS: NIFEdipine E.R. 30 MG TABLET PO SCH (09:26)
[2022-05-19] MEDS: METOPROLOL TARTRATE 25 MG TABLET (FP) PO SCH (09:26)
[2022-05-19] MEDS: THIAMINE HCL 100 MG TABLET (FP) PO SCH (09:26)
[2022-05-19] MEDS: CALCIUM (OYSTER SHELL) 500 MG TABLET (FP) PO SCH ×2 (09:26→21:11)
[2022-05-19] MEDS: ASPIRIN 81 MG CHEWABLE TABLETS PO SCH (09:26)
[2022-05-19 10:00] LABS: BASO % 0.5 % (0-2.0); EOS % 1.7 % (0-4.5); HEMATOCRIT 24.2 % (35.4-49); HEMOGLOBIN 7.9 GM/dL (11.7-16.9); LYMPH % 11.9 % (8-40); MCH 25.1 pg (25.7-33.7); MCHC 32.7 g/dl (32.0-35.9); MEAN CELL VOLUME 76.7 fl (80-96); MONO % 8.1 % (3.8-10.2); NEUT % 77.8 % (42.8-82.8); PLATELET COUNT 349 10^3/uL (134-434); RBC 3.16 M/mm3 (4.00-5.60); RDW 21.8 % (11.9-15.9); WHITE BLOOD COUNT 10.1 K/mm3 (4.0-10.0)
[2022-05-19 10:33] LABS: BLOOD UREA NITROGEN 29.7 mg/dL (7-18); CALCIUM 8.2 mg/dL (8.5-10.1)
[2022-05-19 10:36] LABS: CREATININE 2.5 mg/dL (0.55-1.3)
[2022-05-19 11:14] LABS: ANISOCYTOSIS 2+; MACROCYTOSIS 0
[2022-05-19] MEDS: SODIUM ZIRCONIUM CYCLOSILICATE (LOKELMA) 5 GM PACKET PO SCH (11:38)
[2022-05-19] MEDS ORDERED: INSULIN (NOVOLOG) ASPART 100 UNITS/ML 10ML VIAL ONE (11:47)
[2022-05-19] MEDS: SODIUM CHLORIDE 1 GM TABLET PO SCH ×2 (11:57→21:11)
[2022-05-19] MEDS: oxyCODONE HCL 5 MG TABLET PO PRN ×2 (12:35→20:06)
[2022-05-19] MEDS: CYANOCOBALAMIN 1,000 MCG TABLET (FP) PO SCH (12:36)
[2022-05-19] MEDS: ATORVASTATIN CA 20 MG TABLET (FP) PO SCH (21:10)
[2022-05-20] MEDS: oxyCODONE HCL 5 MG TABLET PO PRN ×4 (04:12→23:14)
[2022-05-20] MEDS: SODIUM BICARBONATE 650 MG TABLET PO SCH ×3 (06:07→21:03)
[2022-05-20] MEDS: GABAPENTIN 300 MG CAPSULE PO SCH ×3 (06:07→21:06)
[2022-05-20] MEDS: INSULIN SLIDING SCALE (NOVOLOG) 1 VIAL SQ SCH ×4 (06:11→21:05)
[2022-05-20] MEDS: INSULIN (LEVEMIR) 100 UNITS/ML UNITS SQ SCH (06:11)
[2022-05-20] MEDS: SEVELAMER CARBONATE 800 MG TAB (FP) PO SCH ×3 (08:31→16:55)
[2022-05-20 09:17] LABS: BASO % 0.4 % (0-2.0); EOS % 1.8 % (0-4.5); HEMATOCRIT 25.3 % (35.4-49); HEMOGLOBIN 8.1 GM/dL (11.7-16.9); LYMPH % 17.8 % (8-40); MCH 24.8 pg (25.7-33.7); MCHC 32.1 g/dl (32.0-35.9); MEAN CELL VOLUME 77.2 fl (80-96); MEAN PLT VOLUME 8.3 fl (7.5-11.1); MONO % 9.8 % (3.8-10.2); NEUT % 70.2 % (42.8-82.8); PLATELET COUNT 346 10^3/uL (134-434); RBC 3.28 M/mm3 (4.00-5.60); RDW 21.8 % (11.9-15.9); WHITE BLOOD COUNT 7.7 K/mm3 (4.0-10.0)
[2022-05-20] MEDS: FERROUS SO4 325 MG TABLET (FP) PO SCH (09:44)
[2022-05-20] MEDS: SODIUM CHLORIDE 1 GM TABLET PO SCH ×2 (09:44→21:06)
[2022-05-20] MEDS: THIAMINE HCL 100 MG TABLET (FP) PO SCH (09:44)
[2022-05-20] MEDS: ASPIRIN 81 MG CHEWABLE TABLETS PO SCH (09:44)
[2022-05-20] MEDS: NIFEdipine E.R. 30 MG TABLET PO SCH (09:44)
[2022-05-20] MEDS: PANTOPRAZOLE 40 MG TABLET PO SCH (09:44)
[2022-05-20] MEDS: FOLIC ACID 1 MG TABLET (FP) PO SCH (09:44)
[2022-05-20] MEDS: levETIRAcetam 500 MG TABLET (FP) PO SCH ×2 (09:44→21:04)
[2022-05-20] MEDS: CYANOCOBALAMIN 1,000 MCG TABLET (FP) PO SCH (09:45)
[2022-05-20] MEDS: METOPROLOL TARTRATE 25 MG TABLET (FP) PO SCH (09:45)
[2022-05-20] MEDS: CALCIUM (OYSTER SHELL) 500 MG TABLET (FP) PO SCH ×2 (09:45→21:06)
[2022-05-20 09:59] LABS: CALCIUM 8.7 mg/dL (8.5-10.1)
[2022-05-20] MEDS ORDERED: ERGOCALCIFEROL (VIT D2) 50,000 UNIT (1.25 MG) CAPSULE PO SCH (10:00)
[2022-05-20 10:03] LABS: CREATININE 2.4 mg/dL (0.55-1.3)
[2022-05-20] MEDS: SODIUM ZIRCONIUM CYCLOSILICATE (LOKELMA) 5 GM PACKET PO SCH (12:00)
[2022-05-20] MEDS: ACETAMINOPHEN 500 MG TABLET (FP) PO SCH ×2 (13:14→21:04)
[2022-05-20] MEDS ORDERED: INSULIN (NOVOLOG) ASPART 100 UNITS/ML 10ML VIAL ONE (21:01)
[2022-05-20] MEDS: ATORVASTATIN CA 20 MG TABLET (FP) PO SCH (21:06)
[2022-05-21] MEDS ORDERED: INSULIN (LEVEMIR) 100 UNITS/ML UNITS SQ ONE ×2 (05:22→18:39)
[2022-05-21] MEDS ORDERED: INSULIN (NOVOLOG) ASPART 100 UNITS/ML 10ML VIAL ONE ×4 (05:22→18:38)
[2022-05-21] MEDS: ACETAMINOPHEN 500 MG TABLET (FP) PO SCH ×4 (05:30→21:04)
[2022-05-21] MEDS: SODIUM BICARBONATE 650 MG TABLET PO SCH ×3 (05:30→21:01)
[2022-05-21] MEDS: GABAPENTIN 300 MG CAPSULE PO SCH ×3 (05:30→21:01)
[2022-05-21] MEDS: INSULIN (LEVEMIR) 100 UNITS/ML UNITS SQ SCH (07:32)
[2022-05-21] MEDS: INSULIN SLIDING SCALE (NOVOLOG) 1 VIAL SQ SCH ×4 (07:33→21:32)
[2022-05-21] MEDS: SEVELAMER CARBONATE 800 MG TAB (FP) PO SCH ×3 (08:42→17:34)
[2022-05-21] MEDS: FOLIC ACID 1 MG TABLET (FP) PO SCH (09:57)
[2022-05-21] MEDS: ASPIRIN 81 MG CHEWABLE TABLETS PO SCH (09:57)
[2022-05-21] MEDS: FERROUS SO4 325 MG TABLET (FP) PO SCH (09:57)
[2022-05-21] MEDS: SODIUM ZIRCONIUM CYCLOSILICATE (LOKELMA) 5 GM PACKET PO SCH (09:58)
[2022-05-21] MEDS: METOPROLOL TARTRATE 25 MG TABLET (FP) PO SCH (09:58)
[2022-05-21] MEDS: levETIRAcetam 500 MG TABLET (FP) PO SCH ×2 (09:58→21:01)
[2022-05-21] MEDS: CALCIUM (OYSTER SHELL) 500 MG TABLET (FP) PO SCH ×2 (09:59→21:00)
[2022-05-21] MEDS: PANTOPRAZOLE 40 MG TABLET PO SCH (10:00)
[2022-05-21] MEDS: NIFEdipine E.R. 30 MG TABLET PO SCH (10:00)
[2022-05-21] MEDS: THIAMINE HCL 100 MG TABLET (FP) PO SCH (10:01)
[2022-05-21] MEDS: CYANOCOBALAMIN 1,000 MCG TABLET (FP) PO SCH (10:01)
[2022-05-21] MEDS: oxyCODONE HCL 5 MG TABLET PO PRN ×2 (10:08→19:46)
[2022-05-21 14:16] VITALS: RESP 18
[2022-05-21] MEDS: ATORVASTATIN CA 20 MG TABLET (FP) PO SCH (21:01)
[2022-05-22] MEDS: oxyCODONE HCL 5 MG TABLET PO PRN ×3 (01:50→21:22)
[2022-05-22] MEDS ORDERED: INSULIN (LEVEMIR) 100 UNITS/ML UNITS SQ ONE (05:46)
[2022-05-22] MEDS: GABAPENTIN 300 MG CAPSULE PO SCH ×3 (05:49→21:20)
[2022-05-22] MEDS: SODIUM BICARBONATE 650 MG TABLET PO SCH ×3 (05:49→21:20)
[2022-05-22] MEDS: ACETAMINOPHEN 500 MG TABLET (FP) PO SCH ×3 (05:53→21:19)
[2022-05-22] MEDS: INSULIN SLIDING SCALE (NOVOLOG) 1 VIAL SQ SCH ×4 (06:56→21:26)
[2022-05-22] MEDS: INSULIN (LEVEMIR) 100 UNITS/ML UNITS SQ SCH (06:56)
[2022-05-22] MEDS: FOLIC ACID 1 MG TABLET (FP) PO SCH (09:19)
[2022-05-22] MEDS: METOPROLOL TARTRATE 25 MG TABLET (FP) PO SCH (09:19)
[2022-05-22] MEDS: ASPIRIN 81 MG CHEWABLE TABLETS PO SCH (09:19)
[2022-05-22] MEDS: levETIRAcetam 500 MG TABLET (FP) PO SCH ×2 (09:19→21:20)
[2022-05-22] MEDS: THIAMINE HCL 100 MG TABLET (FP) PO SCH (09:19)
[2022-05-22] MEDS: NIFEdipine E.R. 30 MG TABLET PO SCH (09:19)
[2022-05-22] MEDS: SEVELAMER CARBONATE 800 MG TAB (FP) PO SCH ×3 (09:19→17:09)
[2022-05-22] MEDS: PANTOPRAZOLE 40 MG TABLET PO SCH (09:19)
[2022-05-22] MEDS: FERROUS SO4 325 MG TABLET (FP) PO SCH (09:19)
[2022-05-22] MEDS: SODIUM ZIRCONIUM CYCLOSILICATE (LOKELMA) 5 GM PACKET PO SCH (09:19)
[2022-05-22] MEDS: CYANOCOBALAMIN 1,000 MCG TABLET (FP) PO SCH (09:27)
[2022-05-22] MEDS: CALCIUM (OYSTER SHELL) 500 MG TABLET (FP) PO SCH ×2 (09:27→21:20)
[2022-05-22 11:06] LABS: CALCIUM 8.6 mg/dL (8.5-10.1)
[2022-05-22 11:07] LABS: BLOOD UREA NITROGEN 28.2 mg/dL (7-18); MAGNESIUM 1.7 mg/dL (1.8-2.4)
[2022-05-22 11:10] LABS: CREATININE 2.3 mg/dL (0.55-1.3); PHOSPHOROUS 3.4 mg/dL (2.5-4.9)
[2022-05-22] MEDS ORDERED: MAGNESIUM OXIDE 400 MG TABLET (FP) PO ONE (14:02)
[2022-05-22] MEDS ORDERED: MAGNESIUM SULF 50% (8.12 MEQ/2 ML-1 GM VIAL) IVPB ONE (14:51)
[2022-05-22] MEDS ORDERED: INSULIN (NOVOLOG) ASPART 100 UNITS/ML 10ML VIAL ONE (21:17)
[2022-05-22] MEDS: ATORVASTATIN CA 20 MG TABLET (FP) PO SCH (21:20)
[2022-05-23] MEDS: ACETAMINOPHEN 500 MG TABLET (FP) PO SCH ×3 (06:39→21:23)
[2022-05-23] MEDS: SODIUM BICARBONATE 650 MG TABLET PO SCH ×3 (06:40→21:23)
[2022-05-23] MEDS: GABAPENTIN 300 MG CAPSULE PO SCH ×3 (06:40→21:24)
[2022-05-23] MEDS: INSULIN (LEVEMIR) 100 UNITS/ML UNITS SQ SCH (06:40)
[2022-05-23] MEDS: INSULIN SLIDING SCALE (NOVOLOG) 1 VIAL SQ SCH ×4 (06:40→21:18)
[2022-05-23] MEDS: oxyCODONE HCL 5 MG TABLET PO PRN (06:46)
[2022-05-23 08:15] LABS: HEMATOCRIT 24.9 % (35.4-49); HEMOGLOBIN 8.3 GM/dL (11.7-16.9); MCH 25.7 pg (25.7-33.7); MCHC 33.3 g/dl (32.0-35.9); MEAN CELL VOLUME 77.3 fl (80-96); MEAN PLT VOLUME 8.4 fl (7.5-11.1); PLATELET COUNT 336 10^3/uL (134-434); RBC 3.22 M/mm3 (4.00-5.60); RDW 21.8 % (11.9-15.9); WHITE BLOOD COUNT 7.2 K/mm3 (4.0-10.0)
[2022-05-23] MEDS: SEVELAMER CARBONATE 800 MG TAB (FP) PO SCH ×3 (08:16→19:43)
[2022-05-23 08:30] LABS: CHLORIDE 108 mmol/L (98-107); SODIUM 137 mmol/L (136-145)
[2022-05-23 08:35] LABS: CO2 24 mmol/L (21-32); GLUCOSE,RANDOM 103 mg/dL (74-106)
[2022-05-23 08:38] LABS: PHOSPHOROUS 3.9 mg/dL (2.5-4.9)
[2022-05-23 08:39] LABS: CREATININE 2.5 mg/dL (0.55-1.3)
[2022-05-23 08:41] LABS: CALCIUM 8.5 mg/dL (8.5-10.1)
[2022-05-23 08:42] LABS: MAGNESIUM 1.8 mg/dL (1.8-2.4)
[2022-05-23 08:55] LABS: ANION GAP 5 MMOL/L (8-16)
[2022-05-23] MEDS: METOPROLOL TARTRATE 25 MG TABLET (FP) PO SCH (09:00)
[2022-05-23] MEDS: FERROUS SO4 325 MG TABLET (FP) PO SCH (09:00)
[2022-05-23] MEDS: THIAMINE HCL 100 MG TABLET (FP) PO SCH (09:00)
[2022-05-23] MEDS: FOLIC ACID 1 MG TABLET (FP) PO SCH (09:00)
[2022-05-23] MEDS: NIFEdipine E.R. 30 MG TABLET PO SCH (09:00)
[2022-05-23] MEDS: levETIRAcetam 500 MG TABLET (FP) PO SCH ×2 (09:00→21:23)
[2022-05-23] MEDS: CALCIUM (OYSTER SHELL) 500 MG TABLET (FP) PO SCH ×2 (09:01→21:24)
[2022-05-23] MEDS: CYANOCOBALAMIN 1,000 MCG TABLET (FP) PO SCH (09:01)
[2022-05-23] MEDS: SODIUM ZIRCONIUM CYCLOSILICATE (LOKELMA) 5 GM PACKET PO SCH (09:01)
[2022-05-23] MEDS: ASPIRIN 81 MG CHEWABLE TABLETS PO SCH (09:01)
[2022-05-23] MEDS: PANTOPRAZOLE 40 MG TABLET PO SCH (09:01)
[2022-05-23] MEDS: HEPARIN NA (PORCINE) 5,000 UNITS/ML 1ML VIAL SQ SCH ×2 (13:18→21:24)
[2022-05-23 14:52] LABS: CHLORIDE 105 mmol/L (98-107); SODIUM 133 mmol/L (136-145)
[2022-05-23 14:53] LABS: CALCIUM 8.3 mg/dL (8.5-10.1)
[2022-05-23 14:54] LABS: BLOOD UREA NITROGEN 28.8 mg/dL (7-18); CO2 27 mmol/L (21-32); GLUCOSE,RANDOM 166 mg/dL (74-106)
[2022-05-23 14:57] LABS: CREATININE 2.6 mg/dL (0.55-1.3)
[2022-05-23 15:06] LABS: ANION GAP 1 MMOL/L (8-16)
[2022-05-23] MEDS ORDERED: CALCIUM GLUCONATE 10% - 1,000 MG/10 ML VIAL IVPUSH ONE (15:09)
[2022-05-23] MEDS ORDERED: DEXTROSE 50%-WATER - 25 GM/50 ML VIAL IVPUSH ONE (15:09)
[2022-05-23] MEDS ORDERED: INSULIN REGULAR HUMAN 100 UNITS/ML *VIAL IVPUSH ONE (15:09)
[2022-05-23] MEDS ORDERED: SODIUM ZIRCONIUM CYCLOSILICATE (LOKELMA) 5 GM PACKET PO ONE (15:13)
[2022-05-23] MEDS ORDERED: SODIUM CHLORIDE 500 ML IV STA (15:29)
[2022-05-23] MEDS ORDERED: ALBUTEROL SO4 0.083% IH SOL 2.5 MG/3 ML VIAL.NEB. NEB ONE ×2 (16:15→18:16)
[2022-05-23] MEDS ORDERED: FUROSEMIDE 40 MG TABLET (FP) PO ONE (16:30)
[2022-05-23] MEDS: SODIUM CHLORIDE 0.45% 1,000 ML IV SCH (18:05)
[2022-05-23] MEDS ORDERED: INSULIN (NOVOLOG) ASPART 100 UNITS/ML 10ML VIAL SQ ONE (18:18)
[2022-05-23] MEDS ORDERED: INSULIN (NOVOLOG) ASPART 100 UNITS/ML 10ML VIAL ONE ×2 (18:27→18:48)
[2022-05-23] MEDS ORDERED: DEXTROSE 50%-WATER 25 GM/50 ML DISP.SYRIN ONE (19:48)
[2022-05-23] MEDS ORDERED: DEXTROSE 50%-WATER - 25 GM/50 ML VIAL IVPUSH PRN (19:53)
[2022-05-23] MEDS: ATORVASTATIN CA 20 MG TABLET (FP) PO SCH (21:23)
[2022-05-23 22:07] LABS: CHLORIDE 108 mmol/L (98-107); SODIUM 136 mmol/L (136-145)
[2022-05-23 22:08] LABS: CALCIUM 8.2 mg/dL (8.5-10.1)
[2022-05-23 22:09] LABS: ANION GAP 4 MMOL/L (8-16); BLOOD UREA NITROGEN 29.4 mg/dL (7-18); CO2 24 mmol/L (21-32)
[2022-05-23 22:12] LABS: CREATININE 2.6 mg/dL (0.55-1.3)
[2022-05-23 22:23] LABS: GLUCOSE,RANDOM 45 mg/dL (74-106)
[2022-05-23] MEDS ORDERED: DEXTROSE 50%-WATER 25 GM/50 ML DISP.SYRIN IVPUSH PRN (23:40)
[2022-05-24 02:20] VITALS: BP 129/67; PULSE 77; TEMP 98
[2022-05-24] MEDS: oxyCODONE HCL 5 MG TABLET PO PRN ×2 (02:40→11:09)
[2022-05-24] MEDS: ACETAMINOPHEN 500 MG TABLET (FP) PO SCH ×3 (04:52→13:34)
[2022-05-24] MEDS: HEPARIN NA (PORCINE) 5,000 UNITS/ML 1ML VIAL SQ SCH ×2 (05:36→13:35)
[2022-05-24] MEDS: SODIUM BICARBONATE 650 MG TABLET PO SCH ×2 (05:36→13:31)
[2022-05-24] MEDS: GABAPENTIN 300 MG CAPSULE PO SCH ×2 (05:36→13:31)
[2022-05-24] MEDS: INSULIN SLIDING SCALE (NOVOLOG) 1 VIAL SQ SCH ×2 (06:14→11:26)
[2022-05-24] MEDS: INSULIN (LEVEMIR) 100 UNITS/ML UNITS SQ SCH (06:15)
[2022-05-24] MEDS: SEVELAMER CARBONATE 800 MG TAB (FP) PO SCH ×2 (08:03→11:24)
[2022-05-24] MEDS: SODIUM CHLORIDE 0.45% 1,000 ML IV SCH (08:08)
[2022-05-24 09:29] LABS: HEMATOCRIT 22.3 % (35.4-49); HEMOGLOBIN 7.3 GM/dL (11.7-16.9); MCH 25.1 pg (25.7-33.7); MCHC 32.7 g/dl (32.0-35.9); MEAN CELL VOLUME 76.8 fl (80-96); MEAN PLT VOLUME 8.3 fl (7.5-11.1); PLATELET COUNT 279 10^3/uL (134-434); RDW 21.2 % (11.9-15.9); WHITE BLOOD COUNT 7.2 K/mm3 (4.0-10.0)
[2022-05-24] MEDS ORDERED: SODIUM ZIRCONIUM CYCLOSILICATE (LOKELMA) 5 GM PACKET PO SCH (10:00)
[2022-05-24 10:26] LABS: CALCIUM 8.2 mg/dL (8.5-10.1)
[2022-05-24 10:27] LABS: ALBUMIN 2.3 g/dl (3.4-5.0); BLOOD UREA NITROGEN 30.6 mg/dL (7-18); MAGNESIUM 1.8 mg/dL (1.8-2.4)
[2022-05-24 10:30] LABS: CREATININE 2.5 mg/dL (0.55-1.3); PHOSPHOROUS 4.8 mg/dL (2.5-4.9)
[2022-05-24 10:31] LABS: BILIRUBIN,TOTAL 0.2 mg/dL (0.2-1); TOT PROT 5.9 g/dl (6.4-8.2)
[2022-05-24] MEDS: levETIRAcetam 500 MG TABLET (FP) PO SCH (10:58)
[2022-05-24] MEDS: FERROUS SO4 325 MG TABLET (FP) PO SCH (10:58)
[2022-05-24] MEDS: CALCIUM (OYSTER SHELL) 500 MG TABLET (FP) PO SCH (10:58)
[2022-05-24] MEDS: ASPIRIN 81 MG CHEWABLE TABLETS PO SCH (10:58)
[2022-05-24] MEDS: CYANOCOBALAMIN 1,000 MCG TABLET (FP) PO SCH (10:58)
[2022-05-24] MEDS: NIFEdipine E.R. 30 MG TABLET PO SCH (10:58)
[2022-05-24] MEDS: PANTOPRAZOLE 40 MG TABLET PO SCH (10:58)
[2022-05-24] MEDS: METOPROLOL TARTRATE 25 MG TABLET (FP) PO SCH (10:58)
[2022-05-24] MEDS: FOLIC ACID 1 MG TABLET (FP) PO SCH (10:58)
[2022-05-24] MEDS: THIAMINE HCL 100 MG TABLET (FP) PO SCH (11:24)
== END 2022-05-24 14:56 | disposition other institution (70) | DRG 314 ==
LOC: JER 16:29 → JERBED 05-10 00:05 → J6S 05-10 03:02 → OBSVTOIN 05-10 15:58
PROVIDERS: ADMIT Internal Medicine; ATTEND Internal Medicine
PROC: 0Y6X0Z0 Detachment at Right 5th Toe, Complete, Open Approach (ICD-10-PCS; 2022-05-17)
PROC: 0QTN0ZZ Resection of Right Metatarsal, Open Approach (ICD-10-PCS; 2022-05-17)
PROC: 0Y6V0Z0 Detachment at Right 4th Toe, Complete, Open Approach (ICD-10-PCS; principal; 2022-05-17 16:31)
PROC: 05HD33Z Insertion of Infusion Device into Right Cephalic Vein, Percutaneous Approach (ICD-10-PCS; 2022-05-23)
PROC: B54MZZA Ultrasonography of Right Upper Extremity Veins, Guidance (ICD-10-PCS; 2022-05-23)
DX: E11.52 Type 2 diabetes mellitus with diabetic peripheral angiopathy with gangrene (principal); E87.5 Hyperkalemia; E78.5 Hyperlipidemia, unspecified; I12.9 Hypertensive chronic kidney disease with stage 1 through stage 4 chronic kidney disease, or unspecified chronic kidney disease; N18.4 Chronic kidney disease, stage 4 (severe); Z79.4 Long term (current) use of insulin; D50.9 Iron deficiency anemia, unspecified; N17.9 Acute kidney failure, unspecified; E11.649 Type 2 diabetes mellitus with hypoglycemia without coma; F10.10 Alcohol abuse, uncomplicated; Z95.1 Presence of aortocoronary bypass graft; E87.20 Acidosis, unspecified; F17.210 Nicotine dependence, cigarettes, uncomplicated; D75.839 Thrombocytosis, unspecified; E11.621 Type 2 diabetes mellitus with foot ulcer; L97.519 Non-pressure chronic ulcer of other part of right foot with unspecified severity; G40.909 Epilepsy, unspecified, not intractable, without status epilepticus; G54.6 Phantom limb syndrome with pain; F14.10 Cocaine abuse, uncomplicated; I96 Gangrene, not elsewhere classified; I25.10 Atherosclerotic heart disease of native coronary artery without angina pectoris; E11.69 Type 2 diabetes mellitus with other specified complication; M86.671 Other chronic osteomyelitis, right ankle and foot; D63.1 Anemia in chronic kidney disease; E83.42 Hypomagnesemia
CPT/HCPCS: 36415; 73630-TC-RT-FY; 73718-TC-RT; 80048; 80053; 81003; 82140; 82436; 82607; 82728; 82746; 82962; 83036; 83540; 83550; 83615; 83735; 84100; 84132; 84133; 84300; 85025; 85027; 85651; 86140; 87070; 87075; 87186; 87205; 88304-TC; 88305-TC; 88311-TC; 93005; 93010; 93926-TC; 94640; 94760; 97116-GP; 97161-GP; 99285-25; C9803-CS; G0378; J1644; J1756; Q5106; U0003; U0005

== ENCOUNTER 2022-06-17 13:24 | Inpatient (IN) | payer OTHER ==
[2022-06-17 14:14] VITALS: BMI 23.7
[2022-06-17] MEDS ORDERED: NALOXONE HCL 0.4 MG/ML VIAL IM PRN (16:09)
[2022-06-17] MEDS ORDERED: MAGNESIUM HYDROX 2400MG/30ML ORAL SUSPENSION 30 ML CUP PO PRN (16:09)
[2022-06-17] MEDS ORDERED: NALOXONE HCL (KLOXXADO) 8 MG SPRAY NS PRN (16:09)
[2022-06-17] MEDS ORDERED: guaiFENesin 600 MG TABLET.ER (FP) PO PRN (16:09)
[2022-06-17] MEDS ORDERED: POLYETHYLENE GLYCOL (HEALTHYLAX) 3350 17 GM PACKET PO PRN (16:09)
[2022-06-17] MEDS ORDERED: BENZONATATE 200 MG CAPSULE PO PRN (16:09)
[2022-06-17] MEDS ORDERED: hydrOXYzine PAMOATE 25 MG CAPSULE (FP) PO PRN (16:09)
[2022-06-17] MEDS ORDERED: NICOTINE 10 MG CARTRIDGE (INHALER) IH PRN (16:09)
[2022-06-17] MEDS ORDERED: MAG HYDROX/AL HYDROX/SIMETH 30 ML UNIT-DOSE CUP PO PRN (16:09)
[2022-06-17] MEDS ORDERED: BENZOCAINE/MENTHOL (CHLORASEPTIC ) LOZENGE MM PRN (16:09)
[2022-06-17] MEDS ORDERED: TUBERCULIN PPD 5 TU/0.1ML VIAL ID ONE (19:17)
[2022-06-17] MEDS ORDERED: CALCIUM (OYSTER SHELL) 500 MG TABLET (FP) PO SCH (22:00)
[2022-06-17] MEDS: SODIUM ZIRCONIUM CYCLOSILICATE (LOKELMA) 10 GM PACKET PO SCH (22:02)
[2022-06-17] MEDS: GABAPENTIN 300 MG CAPSULE PO SCH (22:03)
[2022-06-17] MEDS: levETIRAcetam 500 MG TABLET (FP) PO SCH (22:04)
[2022-06-17] MEDS: MELATONIN 5 MG TABLETS PO SCH (22:04)
[2022-06-17] MEDS: SODIUM BICARBONATE 650 MG TABLET PO SCH (22:04)
[2022-06-17] MEDS: ATORVASTATIN CA 20 MG TABLET (FP) PO SCH (22:04)
[2022-06-17] MEDS: THIAMINE HCL 100 MG TABLET (FP) PO SCH (22:05)
[2022-06-17] MEDS: INSULIN SLIDING SCALE (NOVOLOG) 1 VIAL SQ SCH (22:28)
[2022-06-18] MEDS: GABAPENTIN 300 MG CAPSULE PO SCH ×3 (06:19→21:21)
[2022-06-18] MEDS: INSULIN SLIDING SCALE (NOVOLOG) 1 VIAL SQ SCH ×4 (06:19→21:23)
[2022-06-18] MEDS: SODIUM BICARBONATE 650 MG TABLET PO SCH ×3 (06:20→21:21)
[2022-06-18] MEDS: SEVELAMER CARBONATE 800 MG TAB (FP) PO SCH ×3 (07:09→17:05)
[2022-06-18] MEDS ORDERED: THIAMINE HCL 100 MG TABLET (FP) PO SCH (10:00)
[2022-06-18] MEDS ORDERED: PRENATAL VITAMINS W/ FOLIC ACID TABLET (FP) PO SCH (10:00)
[2022-06-18] MEDS ORDERED: AMYLASE PO SCH (10:00)
[2022-06-18] MEDS ORDERED: [UNRECOGNIZED DRUG - OTHER] PO SCH (10:00)
[2022-06-18] MEDS ORDERED: PROTEASE PO SCH (10:00)
[2022-06-18] MEDS ORDERED: LIPASE PO SCH (10:00)
[2022-06-18] MEDS: CYANOCOBALAMIN 1,000 MCG TABLET (FP) PO SCH (10:02)
[2022-06-18] MEDS: metoPROLOL SUCCINATE 25 MG TAB.SR.24H (FP) PO SCH (10:02)
[2022-06-18] MEDS: NIFEdipine E.R. 30 MG TABLET PO SCH (10:02)
[2022-06-18] MEDS: CALCIUM (OYSTER SHELL) 500 MG TABLET (FP) PO SCH ×2 (10:03→21:21)
[2022-06-18] MEDS: PANTOPRAZOLE 40 MG TABLET PO SCH (10:04)
[2022-06-18] MEDS: levETIRAcetam 500 MG TABLET (FP) PO SCH ×2 (10:04→21:21)
[2022-06-18] MEDS: SODIUM ZIRCONIUM CYCLOSILICATE (LOKELMA) 10 GM PACKET PO SCH ×2 (10:04→21:21)
[2022-06-18] MEDS: ASPIRIN 81 MG CHEWABLE TABLETS PO SCH (10:04)
[2022-06-18] MEDS: FERROUS SO4 325 MG TABLET (FP) PO SCH (10:04)
[2022-06-18] MEDS: POVIDONE-IODINE 10% SOLN 118 ML BOTTLE TP SCH (10:06)
[2022-06-18 12:15] LABS: HEMOGLOBIN 8.9 GM/dL (11.7-16.9); MCH 24.6 pg (25.7-33.7); MCHC 31.8 g/dl (32.0-35.9); MEAN CELL VOLUME 77.3 fl (80-96); MEAN PLT VOLUME 7.9 fl (7.5-11.1); PLATELET COUNT 577 10^3/uL (134-434); RBC 3.62 M/mm3 (4.00-5.60); RDW 22.5 % (11.9-15.9); WHITE BLOOD COUNT 7.2 K/mm3 (4.0-10.0)
[2022-06-18 12:17] LABS: EPI CELLS 26 /uL (0-25.1); HYALINE CASTS 1 /uL (0-3.1); PH,URINE 5.5 (5.0-8.0); URINE APPEARANCE CLEAR; URINE BACTERIA 92 /uL (0-1359); URINE BILIRUBIN NEGATIVE (NEGATIVE); URINE COLOR YELLOW; URINE GLUCOSE (UA) NEGATIVE (NEGATIVE); URINE KETONE NEGATIVE (NEGATIVE); URINE LEUK ESTERASE TRACE (NEGATIVE); URINE NITRITE NEGATIVE (NEGATIVE); URINE PROTEIN 1+ (NEGATIVE); URINE RBC 13 /uL (0-23.9); URINE UROBILINOGEN 0.2 mg/dL (0.2-1.0); URINE WBC 82 /uL (0-25.8)
[2022-06-18 12:20] LABS: ALBUMIN 2.9 g/dl (3.4-5.0); CALCIUM 8.7 mg/dL (8.5-10.1)
[2022-06-18] MEDS: LIPASE/PROTEASE/AMYLASE 36,000 UNIT CAPSULE PO SCH ×2 (12:20→17:04)
[2022-06-18 12:21] LABS: BLOOD UREA NITROGEN 26.8 mg/dL (7-18); MAGNESIUM 1.8 mg/dL (1.8-2.4)
[2022-06-18 12:24] LABS: BILIRUBIN,TOTAL 0.3 mg/dL (0.2-1)
[2022-06-18 12:25] LABS: TOT PROT 7.6 g/dl (6.4-8.2)
[2022-06-18 13:23] LABS: SYPHILIS W/ RPR CONF REACTIVE (NONREACTIVE)
[2022-06-18] MEDS ORDERED: LIPASE/PROTEASE/AMYLASE 6,000 UNIT CAPSULE PO PRN (14:09)
[2022-06-18] MEDS: ATORVASTATIN CA 20 MG TABLET (FP) PO SCH (21:21)
[2022-06-18] MEDS: THIAMINE HCL 100 MG TABLET (FP) PO SCH (21:21)
[2022-06-18] MEDS: MELATONIN 5 MG TABLETS PO SCH (21:21)
[2022-06-19] MEDS: SODIUM BICARBONATE 650 MG TABLET PO SCH ×3 (06:22→21:20)
[2022-06-19] MEDS: GABAPENTIN 300 MG CAPSULE PO SCH ×3 (06:22→21:20)
[2022-06-19] MEDS: SEVELAMER CARBONATE 800 MG TAB (FP) PO SCH ×3 (07:08→16:48)
[2022-06-19] MEDS: LIPASE/PROTEASE/AMYLASE 36,000 UNIT CAPSULE PO SCH ×3 (07:08→16:48)
[2022-06-19] MEDS: INSULIN SLIDING SCALE (NOVOLOG) 1 VIAL SQ SCH ×4 (07:09→21:22)
[2022-06-19] MEDS: POVIDONE-IODINE 10% SOLN 118 ML BOTTLE TP SCH (09:44)
[2022-06-19] MEDS: FERROUS SO4 325 MG TABLET (FP) PO SCH (09:45)
[2022-06-19] MEDS: NIFEdipine E.R. 30 MG TABLET PO SCH (09:45)
[2022-06-19] MEDS: PANTOPRAZOLE 40 MG TABLET PO SCH (09:45)
[2022-06-19] MEDS: CYANOCOBALAMIN 1,000 MCG TABLET (FP) PO SCH (09:45)
[2022-06-19] MEDS: metoPROLOL SUCCINATE 25 MG TAB.SR.24H (FP) PO SCH (09:45)
[2022-06-19] MEDS: SODIUM ZIRCONIUM CYCLOSILICATE (LOKELMA) 10 GM PACKET PO SCH ×2 (09:45→21:20)
[2022-06-19] MEDS: ASPIRIN 81 MG CHEWABLE TABLETS PO SCH (09:45)
[2022-06-19] MEDS: levETIRAcetam 500 MG TABLET (FP) PO SCH ×2 (09:45→21:20)
[2022-06-19] MEDS: CALCIUM (OYSTER SHELL) 500 MG TABLET (FP) PO SCH ×2 (09:45→21:20)
[2022-06-19] MEDS: ERGOCALCIFEROL (VIT D2) 50,000 UNIT (1.25 MG) CAPSULE PO SCH (09:46)
[2022-06-19] MEDS: MELATONIN 5 MG TABLETS PO SCH (21:20)
[2022-06-19] MEDS: ATORVASTATIN CA 20 MG TABLET (FP) PO SCH (21:20)
[2022-06-19] MEDS: THIAMINE HCL 100 MG TABLET (FP) PO SCH (21:20)
[2022-06-20] MEDS: INSULIN SLIDING SCALE (NOVOLOG) 1 VIAL SQ SCH ×4 (06:12→21:27)
[2022-06-20] MEDS: GABAPENTIN 300 MG CAPSULE PO SCH ×3 (06:13→21:25)
[2022-06-20] MEDS: SODIUM BICARBONATE 650 MG TABLET PO SCH ×3 (06:13→21:25)
[2022-06-20] MEDS: SEVELAMER CARBONATE 800 MG TAB (FP) PO SCH (07:04)
[2022-06-20] MEDS: LIPASE/PROTEASE/AMYLASE 36,000 UNIT CAPSULE PO SCH ×3 (07:04→16:44)
[2022-06-20] MEDS: SODIUM ZIRCONIUM CYCLOSILICATE (LOKELMA) 10 GM PACKET PO SCH ×2 (10:04→21:25)
[2022-06-20] MEDS: CALCIUM (OYSTER SHELL) 500 MG TABLET (FP) PO SCH ×2 (10:05→21:25)
[2022-06-20] MEDS: LOPERAMIDE HCL 2 MG CAPSULE PO PRN ×2 (10:05→16:46)
[2022-06-20] MEDS: PANTOPRAZOLE 40 MG TABLET PO SCH (10:05)
[2022-06-20] MEDS: CYANOCOBALAMIN 1,000 MCG TABLET (FP) PO SCH (10:06)
[2022-06-20] MEDS: NIFEdipine E.R. 30 MG TABLET PO SCH (10:06)
[2022-06-20] MEDS: metoPROLOL SUCCINATE 25 MG TAB.SR.24H (FP) PO SCH (10:06)
[2022-06-20] MEDS: levETIRAcetam 500 MG TABLET (FP) PO SCH ×2 (10:06→21:25)
[2022-06-20] MEDS: FERROUS SO4 325 MG TABLET (FP) PO SCH (10:06)
[2022-06-20] MEDS: ASPIRIN 81 MG CHEWABLE TABLETS PO SCH (10:06)
[2022-06-20] MEDS: POVIDONE-IODINE 10% SOLN 118 ML BOTTLE TP SCH (10:06)
[2022-06-20] MEDS: MELATONIN 5 MG TABLETS PO SCH (21:25)
[2022-06-20] MEDS: THIAMINE HCL 100 MG TABLET (FP) PO SCH (21:25)
[2022-06-20] MEDS: ATORVASTATIN CA 20 MG TABLET (FP) PO SCH (21:25)
[2022-06-21] MEDS: GABAPENTIN 300 MG CAPSULE PO SCH ×3 (06:18→21:33)
[2022-06-21] MEDS: INSULIN SLIDING SCALE (NOVOLOG) 1 VIAL SQ SCH ×4 (06:18→21:38)
[2022-06-21] MEDS: SODIUM BICARBONATE 650 MG TABLET PO SCH ×3 (06:19→21:33)
[2022-06-21] MEDS: LIPASE/PROTEASE/AMYLASE 36,000 UNIT CAPSULE PO SCH ×3 (07:06→16:58)
[2022-06-21] MEDS: ASPIRIN 81 MG CHEWABLE TABLETS PO SCH (09:25)
[2022-06-21] MEDS: FERROUS SO4 325 MG TABLET (FP) PO SCH (09:25)
[2022-06-21] MEDS: SODIUM ZIRCONIUM CYCLOSILICATE (LOKELMA) 10 GM PACKET PO SCH ×2 (09:25→21:33)
[2022-06-21] MEDS: NIFEdipine E.R. 30 MG TABLET PO SCH (09:25)
[2022-06-21] MEDS: metoPROLOL SUCCINATE 25 MG TAB.SR.24H (FP) PO SCH (09:25)
[2022-06-21] MEDS: CALCIUM (OYSTER SHELL) 500 MG TABLET (FP) PO SCH ×2 (09:25→21:33)
[2022-06-21] MEDS: levETIRAcetam 500 MG TABLET (FP) PO SCH ×2 (09:25→21:33)
[2022-06-21] MEDS: PANTOPRAZOLE 40 MG TABLET PO SCH (09:26)
[2022-06-21] MEDS: BISMUTH SUBSALICYLATE 262 MG/15 ML BTL PO SCH (10:34)
[2022-06-21] MEDS: CYANOCOBALAMIN 1,000 MCG TABLET (FP) PO SCH (10:34)
[2022-06-21] MEDS: SEVELAMER CARBONATE 800 MG TAB (FP) PO SCH ×2 (11:57→16:58)
[2022-06-21] MEDS: THIAMINE HCL 100 MG TABLET (FP) PO SCH (21:33)
[2022-06-21] MEDS: MELATONIN 5 MG TABLETS PO SCH (21:33)
[2022-06-21] MEDS: ATORVASTATIN CA 20 MG TABLET (FP) PO SCH (21:33)
[2022-06-22] MEDS: GABAPENTIN 300 MG CAPSULE PO SCH ×3 (06:16→21:38)
[2022-06-22] MEDS: SODIUM BICARBONATE 650 MG TABLET PO SCH ×3 (06:18→21:38)
[2022-06-22] MEDS: INSULIN SLIDING SCALE (NOVOLOG) 1 VIAL SQ SCH ×4 (06:21→21:41)
[2022-06-22] MEDS: LIPASE/PROTEASE/AMYLASE 36,000 UNIT CAPSULE PO SCH ×3 (07:01→17:04)
[2022-06-22] MEDS: SEVELAMER CARBONATE 800 MG TAB (FP) PO SCH ×3 (07:01→17:03)
[2022-06-22] MEDS: SODIUM ZIRCONIUM CYCLOSILICATE (LOKELMA) 10 GM PACKET PO SCH ×2 (09:49→21:42)
[2022-06-22] MEDS: CYANOCOBALAMIN 1,000 MCG TABLET (FP) PO SCH (09:50)
[2022-06-22] MEDS: FERROUS SO4 325 MG TABLET (FP) PO SCH (09:50)
[2022-06-22] MEDS: metoPROLOL SUCCINATE 25 MG TAB.SR.24H (FP) PO SCH (09:50)
[2022-06-22] MEDS: CALCIUM (OYSTER SHELL) 500 MG TABLET (FP) PO SCH ×2 (09:50→21:39)
[2022-06-22] MEDS: PANTOPRAZOLE 40 MG TABLET PO SCH (09:50)
[2022-06-22] MEDS: ASPIRIN 81 MG CHEWABLE TABLETS PO SCH (09:50)
[2022-06-22] MEDS: NIFEdipine E.R. 30 MG TABLET PO SCH (09:50)
[2022-06-22] MEDS: levETIRAcetam 500 MG TABLET (FP) PO SCH ×2 (09:50→21:38)
[2022-06-22] MEDS: BISMUTH SUBSALICYLATE 262 MG/15 ML BTL PO SCH (09:51)
[2022-06-22] MEDS: ATORVASTATIN CA 20 MG TABLET (FP) PO SCH (21:38)
[2022-06-22] MEDS: THIAMINE HCL 100 MG TABLET (FP) PO SCH (21:41)
[2022-06-22] MEDS: MELATONIN 5 MG TABLETS PO SCH (21:41)
[2022-06-23] MEDS: GABAPENTIN 300 MG CAPSULE PO SCH ×3 (06:17→21:54)
[2022-06-23] MEDS: SODIUM BICARBONATE 650 MG TABLET PO SCH ×3 (06:18→21:53)
[2022-06-23] MEDS: INSULIN SLIDING SCALE (NOVOLOG) 1 VIAL SQ SCH ×4 (06:20→21:55)
[2022-06-23] MEDS: SEVELAMER CARBONATE 800 MG TAB (FP) PO SCH ×3 (07:08→16:48)
[2022-06-23] MEDS: LIPASE/PROTEASE/AMYLASE 36,000 UNIT CAPSULE PO SCH ×3 (07:08→16:48)
[2022-06-23] MEDS: CYANOCOBALAMIN 1,000 MCG TABLET (FP) PO SCH (09:43)
[2022-06-23] MEDS: PANTOPRAZOLE 40 MG TABLET PO SCH (09:43)
[2022-06-23] MEDS: CALCIUM (OYSTER SHELL) 500 MG TABLET (FP) PO SCH ×2 (09:43→21:53)
[2022-06-23] MEDS: FERROUS SO4 325 MG TABLET (FP) PO SCH (09:43)
[2022-06-23] MEDS: ASPIRIN 81 MG CHEWABLE TABLETS PO SCH (09:43)
[2022-06-23] MEDS: SODIUM ZIRCONIUM CYCLOSILICATE (LOKELMA) 10 GM PACKET PO SCH ×2 (09:43→21:55)
[2022-06-23] MEDS: NIFEdipine E.R. 30 MG TABLET PO SCH (09:43)
[2022-06-23] MEDS: levETIRAcetam 500 MG TABLET (FP) PO SCH ×2 (09:43→21:54)
[2022-06-23] MEDS: metoPROLOL SUCCINATE 25 MG TAB.SR.24H (FP) PO SCH (09:45)
[2022-06-23] MEDS: ATORVASTATIN CA 20 MG TABLET (FP) PO SCH (21:54)
[2022-06-23] MEDS: THIAMINE HCL 100 MG TABLET (FP) PO SCH (21:54)
[2022-06-23] MEDS: MELATONIN 5 MG TABLETS PO SCH (21:55)
[2022-06-24] MEDS: INSULIN SLIDING SCALE (NOVOLOG) 1 VIAL SQ SCH ×4 (06:03→21:34)
[2022-06-24] MEDS: GABAPENTIN 300 MG CAPSULE PO SCH ×3 (06:03→21:29)
[2022-06-24] MEDS: SODIUM BICARBONATE 650 MG TABLET PO SCH ×3 (06:03→21:28)
[2022-06-24] MEDS: SEVELAMER CARBONATE 800 MG TAB (FP) PO SCH ×3 (07:06→17:08)
[2022-06-24] MEDS: LIPASE/PROTEASE/AMYLASE 36,000 UNIT CAPSULE PO SCH ×3 (07:06→17:09)
[2022-06-24] MEDS: SODIUM ZIRCONIUM CYCLOSILICATE (LOKELMA) 10 GM PACKET PO SCH ×2 (09:53→21:28)
[2022-06-24] MEDS: CALCIUM (OYSTER SHELL) 500 MG TABLET (FP) PO SCH ×2 (09:53→21:28)
[2022-06-24] MEDS: FERROUS SO4 325 MG TABLET (FP) PO SCH (09:53)
[2022-06-24] MEDS: CYANOCOBALAMIN 1,000 MCG TABLET (FP) PO SCH (09:53)
[2022-06-24] MEDS: levETIRAcetam 500 MG TABLET (FP) PO SCH ×2 (09:53→21:29)
[2022-06-24] MEDS: ASPIRIN 81 MG CHEWABLE TABLETS PO SCH (09:53)
[2022-06-24] MEDS: NIFEdipine E.R. 30 MG TABLET PO SCH (09:53)
[2022-06-24] MEDS: PANTOPRAZOLE 40 MG TABLET PO SCH (09:53)
[2022-06-24] MEDS: metoPROLOL SUCCINATE 25 MG TAB.SR.24H (FP) PO SCH (09:54)
[2022-06-24] MEDS ORDERED: LACTOBACILLUS ACIDOPHILUS 1 TABLET PO SCH (17:45)
[2022-06-24] MEDS: THIAMINE HCL 100 MG TABLET (FP) PO SCH (21:26)
[2022-06-24] MEDS: MELATONIN 5 MG TABLETS PO SCH (21:26)
[2022-06-24] MEDS: ATORVASTATIN CA 20 MG TABLET (FP) PO SCH (21:28)
[2022-06-24] MEDS: LACTOBACILLUS ACIDOPHILUS 1 TABLET PO SCH (23:19)
[2022-06-25] MEDS: INSULIN SLIDING SCALE (NOVOLOG) 1 VIAL SQ SCH ×4 (06:07→21:18)
[2022-06-25] MEDS: SODIUM BICARBONATE 650 MG TABLET PO SCH ×3 (06:09→21:14)
[2022-06-25] MEDS: GABAPENTIN 300 MG CAPSULE PO SCH ×3 (06:09→21:14)
[2022-06-25] MEDS: SEVELAMER CARBONATE 800 MG TAB (FP) PO SCH ×3 (07:08→16:34)
[2022-06-25] MEDS: LIPASE/PROTEASE/AMYLASE 36,000 UNIT CAPSULE PO SCH ×3 (07:08→16:34)
[2022-06-25] MEDS: PANTOPRAZOLE 40 MG TABLET PO SCH (09:59)
[2022-06-25] MEDS: CYANOCOBALAMIN 1,000 MCG TABLET (FP) PO SCH (09:59)
[2022-06-25] MEDS: metoPROLOL SUCCINATE 25 MG TAB.SR.24H (FP) PO SCH (09:59)
[2022-06-25] MEDS: LACTOBACILLUS ACIDOPHILUS 1 TABLET PO SCH (09:59)
[2022-06-25] MEDS: ASPIRIN 81 MG CHEWABLE TABLETS PO SCH (09:59)
[2022-06-25] MEDS: SODIUM ZIRCONIUM CYCLOSILICATE (LOKELMA) 10 GM PACKET PO SCH ×2 (09:59→21:14)
[2022-06-25] MEDS: CALCIUM (OYSTER SHELL) 500 MG TABLET (FP) PO SCH ×2 (09:59→21:14)
[2022-06-25] MEDS: levETIRAcetam 500 MG TABLET (FP) PO SCH ×2 (09:59→21:14)
[2022-06-25] MEDS: FERROUS SO4 325 MG TABLET (FP) PO SCH (09:59)
[2022-06-25] MEDS: NIFEdipine E.R. 30 MG TABLET PO SCH (09:59)
[2022-06-25] MEDS: ATORVASTATIN CA 20 MG TABLET (FP) PO SCH (21:14)
[2022-06-25] MEDS: MELATONIN 5 MG TABLETS PO SCH (21:14)
[2022-06-25] MEDS: THIAMINE HCL 100 MG TABLET (FP) PO SCH (21:14)
[2022-06-26] MEDS: GABAPENTIN 300 MG CAPSULE PO SCH ×3 (06:25→21:00)
[2022-06-26] MEDS: SODIUM BICARBONATE 650 MG TABLET PO SCH ×3 (06:28→21:01)
[2022-06-26] MEDS: INSULIN SLIDING SCALE (NOVOLOG) 1 VIAL SQ SCH ×4 (06:31→21:02)
[2022-06-26] MEDS: LIPASE/PROTEASE/AMYLASE 36,000 UNIT CAPSULE PO SCH ×3 (07:02→16:47)
[2022-06-26] MEDS: SEVELAMER CARBONATE 800 MG TAB (FP) PO SCH ×3 (07:02→16:46)
[2022-06-26] MEDS: SODIUM ZIRCONIUM CYCLOSILICATE (LOKELMA) 10 GM PACKET PO SCH ×2 (10:04→21:00)
[2022-06-26] MEDS: CALCIUM (OYSTER SHELL) 500 MG TABLET (FP) PO SCH ×2 (10:05→21:00)
[2022-06-26] MEDS: PANTOPRAZOLE 40 MG TABLET PO SCH (10:06)
[2022-06-26] MEDS: NIFEdipine E.R. 30 MG TABLET PO SCH (10:06)
[2022-06-26] MEDS: CYANOCOBALAMIN 1,000 MCG TABLET (FP) PO SCH (10:06)
[2022-06-26] MEDS: metoPROLOL SUCCINATE 25 MG TAB.SR.24H (FP) PO SCH (10:06)
[2022-06-26] MEDS: levETIRAcetam 500 MG TABLET (FP) PO SCH ×2 (10:06→21:00)
[2022-06-26] MEDS: FERROUS SO4 325 MG TABLET (FP) PO SCH (10:06)
[2022-06-26] MEDS: ERGOCALCIFEROL (VIT D2) 50,000 UNIT (1.25 MG) CAPSULE PO SCH (10:07)
[2022-06-26] MEDS: LACTOBACILLUS ACIDOPHILUS 1 TABLET PO SCH (11:12)
[2022-06-26] MEDS: ASPIRIN 81 MG CHEWABLE TABLETS PO SCH (11:12)
[2022-06-26] MEDS: THIAMINE HCL 100 MG TABLET (FP) PO SCH (21:00)
[2022-06-26] MEDS: ATORVASTATIN CA 20 MG TABLET (FP) PO SCH (21:00)
[2022-06-26] MEDS: MELATONIN 5 MG TABLETS PO SCH (21:00)
[2022-06-27] MEDS: SODIUM BICARBONATE 650 MG TABLET PO SCH ×3 (06:23→21:16)
[2022-06-27] MEDS: INSULIN SLIDING SCALE (NOVOLOG) 1 VIAL SQ SCH ×4 (06:23→21:18)
[2022-06-27] MEDS: GABAPENTIN 300 MG CAPSULE PO SCH ×3 (06:23→21:16)
[2022-06-27] MEDS: SEVELAMER CARBONATE 800 MG TAB (FP) PO SCH ×3 (07:00→16:39)
[2022-06-27] MEDS: LIPASE/PROTEASE/AMYLASE 36,000 UNIT CAPSULE PO SCH ×3 (07:00→16:41)
[2022-06-27] MEDS: SODIUM ZIRCONIUM CYCLOSILICATE (LOKELMA) 10 GM PACKET PO SCH ×2 (10:09→21:15)
[2022-06-27] MEDS: levETIRAcetam 500 MG TABLET (FP) PO SCH ×2 (10:11→21:16)
[2022-06-27] MEDS: PANTOPRAZOLE 40 MG TABLET PO SCH (10:11)
[2022-06-27] MEDS: CALCIUM (OYSTER SHELL) 500 MG TABLET (FP) PO SCH ×2 (10:11→21:16)
[2022-06-27] MEDS: NIFEdipine E.R. 30 MG TABLET PO SCH (10:11)
[2022-06-27] MEDS: CYANOCOBALAMIN 1,000 MCG TABLET (FP) PO SCH (10:11)
[2022-06-27] MEDS: ASPIRIN 81 MG CHEWABLE TABLETS PO SCH (10:12)
[2022-06-27] MEDS: metoPROLOL SUCCINATE 25 MG TAB.SR.24H (FP) PO SCH (10:12)
[2022-06-27] MEDS: LACTOBACILLUS ACIDOPHILUS 1 TABLET PO SCH (10:12)
[2022-06-27] MEDS: FERROUS SO4 325 MG TABLET (FP) PO SCH (10:12)
[2022-06-27] MEDS ORDERED: INSULIN SLIDING SCALE (NOVOLOG) 1 VIAL SQ ONE (11:48)
[2022-06-27] MEDS: THIAMINE HCL 100 MG TABLET (FP) PO SCH (21:15)
[2022-06-27] MEDS: MELATONIN 5 MG TABLETS PO SCH (21:15)
[2022-06-27] MEDS: ATORVASTATIN CA 20 MG TABLET (FP) PO SCH (21:16)
[2022-06-27] MEDS: ACETAMINOPHEN 325 MG TABLET (FP) PO PRN (22:44)
[2022-06-28] MEDS: INSULIN SLIDING SCALE (NOVOLOG) 1 VIAL SQ SCH ×4 (06:02→21:39)
[2022-06-28] MEDS: SODIUM BICARBONATE 650 MG TABLET PO SCH ×3 (06:03→21:32)
[2022-06-28] MEDS: GABAPENTIN 300 MG CAPSULE PO SCH ×3 (06:03→21:31)
[2022-06-28] MEDS: LIPASE/PROTEASE/AMYLASE 36,000 UNIT CAPSULE PO SCH ×3 (07:04→16:48)
[2022-06-28] MEDS: SEVELAMER CARBONATE 800 MG TAB (FP) PO SCH ×3 (07:05→16:49)
[2022-06-28] MEDS: levETIRAcetam 500 MG TABLET (FP) PO SCH ×2 (10:02→21:31)
[2022-06-28] MEDS: CYANOCOBALAMIN 1,000 MCG TABLET (FP) PO SCH (10:03)
[2022-06-28] MEDS: LACTOBACILLUS ACIDOPHILUS 1 TABLET PO SCH (10:03)
[2022-06-28] MEDS: CALCIUM (OYSTER SHELL) 500 MG TABLET (FP) PO SCH ×2 (10:03→21:32)
[2022-06-28] MEDS: ASPIRIN 81 MG CHEWABLE TABLETS PO SCH (10:04)
[2022-06-28] MEDS: SODIUM ZIRCONIUM CYCLOSILICATE (LOKELMA) 10 GM PACKET PO SCH ×2 (10:04→21:31)
[2022-06-28] MEDS: metoPROLOL SUCCINATE 25 MG TAB.SR.24H (FP) PO SCH (10:04)
[2022-06-28] MEDS: NIFEdipine E.R. 30 MG TABLET PO SCH (10:04)
[2022-06-28] MEDS: PANTOPRAZOLE 40 MG TABLET PO SCH (10:04)
[2022-06-28] MEDS: FERROUS SO4 325 MG TABLET (FP) PO SCH (10:04)
[2022-06-28] MEDS: ATORVASTATIN CA 20 MG TABLET (FP) PO SCH (21:31)
[2022-06-28] MEDS: MELATONIN 5 MG TABLETS PO SCH (21:32)
[2022-06-28] MEDS: THIAMINE HCL 100 MG TABLET (FP) PO SCH (21:33)
[2022-06-29] MEDS: GABAPENTIN 300 MG CAPSULE PO SCH ×3 (06:12→21:03)
[2022-06-29] MEDS: SODIUM BICARBONATE 650 MG TABLET PO SCH ×3 (06:12→21:03)
[2022-06-29] MEDS: INSULIN SLIDING SCALE (NOVOLOG) 1 VIAL SQ SCH ×4 (06:36→21:07)
[2022-06-29] MEDS: SEVELAMER CARBONATE 800 MG TAB (FP) PO SCH ×3 (07:12→16:32)
[2022-06-29] MEDS: LIPASE/PROTEASE/AMYLASE 36,000 UNIT CAPSULE PO SCH ×3 (07:13→16:32)
[2022-06-29] MEDS: levETIRAcetam 500 MG TABLET (FP) PO SCH ×2 (09:37→21:03)
[2022-06-29] MEDS: metoPROLOL SUCCINATE 25 MG TAB.SR.24H (FP) PO SCH (09:37)
[2022-06-29] MEDS: NIFEdipine E.R. 30 MG TABLET PO SCH (09:37)
[2022-06-29] MEDS: PANTOPRAZOLE 40 MG TABLET PO SCH (09:37)
[2022-06-29] MEDS: ASPIRIN 81 MG CHEWABLE TABLETS PO SCH (09:37)
[2022-06-29] MEDS: FERROUS SO4 325 MG TABLET (FP) PO SCH (09:37)
[2022-06-29] MEDS: CALCIUM (OYSTER SHELL) 500 MG TABLET (FP) PO SCH ×2 (09:38→21:03)
[2022-06-29] MEDS: LACTOBACILLUS ACIDOPHILUS 1 TABLET PO SCH (09:39)
[2022-06-29] MEDS: CYANOCOBALAMIN 1,000 MCG TABLET (FP) PO SCH (09:39)
[2022-06-29] MEDS: SODIUM ZIRCONIUM CYCLOSILICATE (LOKELMA) 10 GM PACKET PO SCH ×2 (09:40→21:03)
[2022-06-29] MEDS: MELATONIN 5 MG TABLETS PO SCH (21:03)
[2022-06-29] MEDS: ATORVASTATIN CA 20 MG TABLET (FP) PO SCH (21:03)
[2022-06-29] MEDS: THIAMINE HCL 100 MG TABLET (FP) PO SCH (21:03)
[2022-06-30] MEDS: ALBUTEROL SO4 HFA INHALER IH PRN ×4 (04:05→19:06)
[2022-06-30] MEDS: SODIUM BICARBONATE 650 MG TABLET PO SCH ×3 (06:26→21:43)
[2022-06-30] MEDS: GABAPENTIN 300 MG CAPSULE PO SCH ×3 (06:26→21:42)
[2022-06-30] MEDS: INSULIN SLIDING SCALE (NOVOLOG) 1 VIAL SQ SCH ×4 (06:44→21:47)
[2022-06-30] MEDS: LIPASE/PROTEASE/AMYLASE 36,000 UNIT CAPSULE PO SCH ×3 (07:15→16:34)
[2022-06-30] MEDS: SEVELAMER CARBONATE 800 MG TAB (FP) PO SCH ×3 (07:15→16:34)
[2022-06-30] MEDS: CYANOCOBALAMIN 1,000 MCG TABLET (FP) PO SCH (10:04)
[2022-06-30] MEDS: ASPIRIN 81 MG CHEWABLE TABLETS PO SCH (10:04)
[2022-06-30] MEDS: SODIUM ZIRCONIUM CYCLOSILICATE (LOKELMA) 10 GM PACKET PO SCH ×2 (10:04→21:44)
[2022-06-30] MEDS: CALCIUM (OYSTER SHELL) 500 MG TABLET (FP) PO SCH ×2 (10:05→21:43)
[2022-06-30] MEDS: NIFEdipine E.R. 30 MG TABLET PO SCH (10:05)
[2022-06-30] MEDS: PANTOPRAZOLE 40 MG TABLET PO SCH (10:05)
[2022-06-30] MEDS: levETIRAcetam 500 MG TABLET (FP) PO SCH ×2 (10:05→21:43)
[2022-06-30] MEDS: FERROUS SO4 325 MG TABLET (FP) PO SCH (10:05)
[2022-06-30] MEDS: metoPROLOL SUCCINATE 25 MG TAB.SR.24H (FP) PO SCH (10:05)
[2022-06-30] MEDS: LACTOBACILLUS ACIDOPHILUS 1 TABLET PO SCH (10:05)
[2022-06-30] MEDS ORDERED: ALBUTEROL SO4 0.083% IH SOL 2.5 MG/3 ML VIAL.NEB. NEB PRN (20:17)
[2022-06-30] MEDS ORDERED: methylPREDNISolone NA SUCC 40 MG/1 ML VIAL IM ONE (20:39)
[2022-06-30 21:31] VITALS: BP 161/82; PULSE 82; RESP 19; TEMP 96.8
[2022-06-30] MEDS ORDERED: ALBUTEROL SO4 2.5/IPRATROPIUM 0.5 INH SOL 3 ML VIAL.NEB. NEB ONE (21:41)
[2022-06-30] MEDS: ATORVASTATIN CA 20 MG TABLET (FP) PO SCH (21:42)
[2022-06-30] MEDS: THIAMINE HCL 100 MG TABLET (FP) PO SCH (21:43)
[2022-06-30] MEDS: MELATONIN 5 MG TABLETS PO SCH (21:43)
[2022-06-30] MEDS: ACETAMINOPHEN 325 MG TABLET (FP) PO PRN (21:44)
== END 2022-06-30 23:50 | disposition short-term general hospital (02) | DRG 772 ==
LOC: SUATTDRO 13:24 → YASAS 13:24 → Y3W 18:21
PROVIDERS: ADMIT Allergy & Immunology; ATTEND Psychiatry & Neurology Pain Medicine
PROC: HZ42ZZZ Group Counseling for Substance Abuse Treatment, Cognitive-Behavioral (ICD-10-PCS; principal; 2022-06-17)
DX: F10.20 Alcohol dependence, uncomplicated (principal); F14.20 Cocaine dependence, uncomplicated; J45.901 Unspecified asthma with (acute) exacerbation; I25.10 Atherosclerotic heart disease of native coronary artery without angina pectoris; I13.10 Hypertensive heart and chronic kidney disease without heart failure, with stage 1 through stage 4 chronic kidney disease, or unspecified chronic kidney disease; N18.4 Chronic kidney disease, stage 4 (severe); E11.51 Type 2 diabetes mellitus with diabetic peripheral angiopathy without gangrene; Z79.4 Long term (current) use of insulin; K21.9 Gastro-esophageal reflux disease without esophagitis; K86.89 Other specified diseases of pancreas; R19.7 Diarrhea, unspecified; R07.9 Chest pain, unspecified; R06.02 Shortness of breath; Z95.1 Presence of aortocoronary bypass graft; Z87.891 Personal history of nicotine dependence; Z89.421 Acquired absence of other right toe(s); Z91.011 Allergy to milk products; Z88.8 Allergy status to other drugs, medicaments and biological substances
CPT/HCPCS: 36415; 80053; 80177; 81003; 82140; 82962; 83735; 85027; 86593; 86780; 86803; 94640; C9803-CS; U0003; U0005

== ENCOUNTER 2022-06-30 22:11 | Inpatient (IN) | payer OTHER ==
[2022-06-30 22:26] VITALS: BMI 27.1
[2022-06-30] MEDS ORDERED: ALBUTEROL SO4 2.5/IPRATROPIUM 0.5 INH SOL 3 ML VIAL.NEB. NEB ONE ×2 (22:32→22:36)
[2022-06-30] MEDS ORDERED: methylPREDNISolone NA SUCC 125 MG/2 ML VIAL IVPUSH ONE (22:33)
[2022-06-30] MEDS ORDERED: MAGNESIUM SULF 50% (8.12 MEQ/2 ML-1 GM VIAL) IVPB ONE (22:36)
[2022-06-30] MEDS ORDERED: methylPREDNISolone NA SUCC 125 MG/2 ML VIAL ONE (22:36)
[2022-06-30] MEDS ORDERED: MAGNESIUM SULFATE IN WATER 2 GM/50 ML IVPB IVPB ONE (22:43)
[2022-06-30 23:32] LABS: BASO % 0.3 % (0-2.0); EOS % 2.2 % (0-4.5); HEMATOCRIT 21.9 % (35.4-49); LYMPH % 10.9 % (8-40); MCH 23.7 pg (25.7-33.7); MCHC 31.5 g/dl (32.0-35.9); MEAN CELL VOLUME 75.1 fl (80-96); MEAN PLT VOLUME 7.6 fl (7.5-11.1); MONO % 7.9 % (3.8-10.2); NEUT % 78.7 % (42.8-82.8); PLATELET COUNT 419 10^3/uL (134-434); RBC 2.92 M/mm3 (4.00-5.60); RDW 21.7 % (11.9-15.9); WHITE BLOOD COUNT 12.6 K/mm3 (4.0-10.0)
[2022-06-30 23:33] LABS: HEMOGLOBIN 6.9 GM/dL (11.7-16.9)
[2022-06-30 23:39] LABS: INR 1.07 (0.83-1.09); PROTHROMBIN TIME (PATIENT) 12.4 SEC (9.7-13.0)
[2022-06-30 23:41] LABS: ACTIVATED PTT 29.6 SECONDS (25.2-36.5)
[2022-06-30 23:55] LABS: ALBUMIN 2.4 g/dl (3.4-5.0); BLOOD UREA NITROGEN 31.8 mg/dL (7-18)
[2022-06-30 23:58] LABS: CREATININE 2.5 mg/dL (0.55-1.3)
[2022-07-01] LABS: BILIRUBIN,TOTAL 0.2 mg/dL (0.2-1); TOT PROT 6.7 g/dl (6.4-8.2)
[2022-07-01] MEDS ORDERED: AZITHROMYCIN IVPB 500 MG in DEXTROSE 5%-WATER - 250 ML IVPB ONE (00:33)
[2022-07-01] MEDS ORDERED: CEFTRIAXONE 1 GM/50 ML BAG ONE (00:40)
[2022-07-01] MEDS ORDERED: FUROSEMIDE 40 MG/4 ML INJECTABLE VIAL IVPUSH ONE (01:10)
[2022-07-01] MEDS ORDERED: AZITHROMYCIN IVPB 500 MG/250 ML BAG IVPB ONE (01:11)
[2022-07-01] MEDS ORDERED: ALBUTEROL SO4 HFA INHALER IH PRN (01:14)
[2022-07-01] MEDS: levETIRAcetam 500 MG TABLET (FP) PO SCH ×2 (01:29→10:24)
[2022-07-01 01:35] LABS: CALCIUM 7.2 mg/dL (8.5-10.1)
[2022-07-01 02:49] LABS: ANISOCYTOSIS 2+; MACROCYTOSIS 0; OVALOCYTE 1+; TEAR DROP CELLS 1+
[2022-07-01] MEDS ORDERED: HEPARIN NA (PORCINE) 5,000 UNITS/ML 1ML VIAL SQ SCH (06:00)
[2022-07-01] MEDS ORDERED: GABAPENTIN 300 MG CAPSULE ONE (06:09)
[2022-07-01] MEDS ORDERED: FUROSEMIDE 40 MG/4 ML INJECTABLE VIAL ONE (06:09)
[2022-07-01] MEDS: FUROSEMIDE 40 MG/4 ML INJECTABLE VIAL IVPUSH SCH ×2 (06:20→13:08)
[2022-07-01] MEDS: GABAPENTIN 300 MG CAPSULE PO SCH ×2 (06:28→13:08)
[2022-07-01] MEDS: SODIUM BICARBONATE 650 MG TABLET PO SCH ×2 (06:28→13:08)
[2022-07-01] MEDS ORDERED: HEPARIN NA (PORCINE) 5,000 UNITS/ML 1ML VIAL ONE (07:43)
[2022-07-01] MEDS ORDERED: [UNRECOGNIZED DRUG - OTHER] PO SCH (10:00)
[2022-07-01] MEDS ORDERED: CALCIUM (OYSTER SHELL) 500 MG TABLET (FP) PO SCH (10:00)
[2022-07-01] MEDS ORDERED: LIPASE PO SCH (10:00)
[2022-07-01] MEDS ORDERED: PANTOPRAZOLE 40 MG TABLET PO SCH (10:00)
[2022-07-01] MEDS ORDERED: ASPIRIN 81 MG CHEWABLE TABLETS PO SCH (10:00)
[2022-07-01] MEDS ORDERED: AMYLASE PO SCH (10:00)
[2022-07-01] MEDS ORDERED: CYANOCOBALAMIN 1,000 MCG TABLET (FP) PO SCH (10:00)
[2022-07-01] MEDS ORDERED: AZITHROMYCIN 500 MG TABLET PO SCH (10:00)
[2022-07-01] MEDS ORDERED: PROTEASE PO SCH (10:00)
[2022-07-01] MEDS ORDERED: CEFTRIAXONE 1 GM in DEXTROSE 5%-WATER - 50 ML IVPB SCH (10:00)
[2022-07-01] MEDS ORDERED: FUROSEMIDE 40 MG/4 ML INJECTABLE VIAL IVPUSH SCH (10:00)
[2022-07-01] MEDS: THIAMINE HCL 100 MG TABLET (FP) PO SCH (10:22)
[2022-07-01] MEDS: methylPREDNISolone NA SUCC 40 MG/1 ML VIAL IVPUSH SCH ×2 (10:22→17:15)
[2022-07-01] MEDS: MULTIVITAMINS (DAILY MVI) TABLET (FP) PO SCH (10:22)
[2022-07-01] MEDS ORDERED: SODIUM ZIRCONIUM CYCLOSILICATE (LOKELMA) 5 GM PACKET PO SCH ×2 (12:30→22:00)
[2022-07-01 13:04] LABS: HEMATOCRIT 26.9 % (35.4-49); HEMOGLOBIN 8.6 GM/dL (11.7-16.9); MCH 24.4 pg (25.7-33.7); MEAN CELL VOLUME 76.3 fl (80-96); MEAN PLT VOLUME 8.2 fl (7.5-11.1); PLATELET COUNT 421 10^3/uL (134-434); RBC 3.53 M/mm3 (4.00-5.60); RDW 21.7 % (11.9-15.9); WHITE BLOOD COUNT 17.9 K/mm3 (4.0-10.0)
[2022-07-01 13:31] LABS: CHLORIDE 101 mmol/L (98-107); SODIUM 132 mmol/L (136-145)
[2022-07-01 13:34] LABS: ALBUMIN 2.7 g/dl (3.4-5.0); BLOOD UREA NITROGEN 36.9 mg/dL (7-18); CALCIUM 7.7 mg/dL (8.5-10.1); CO2 20 mmol/L (21-32); GLUCOSE,RANDOM 399 mg/dL (74-106)
[2022-07-01 13:35] LABS: MAGNESIUM 1.8 mg/dL (1.8-2.4)
[2022-07-01 13:37] LABS: CREATININE 2.4 mg/dL (0.55-1.3); SGOT/AST 23 U/L (15-37); SGPT/ALT 32 U/L (13-61)
[2022-07-01 13:38] LABS: PHOSPHOROUS 5.1 mg/dL (2.5-4.9); TOT PROT 7.8 g/dl (6.4-8.2)
[2022-07-01 13:39] LABS: BILIRUBIN,TOTAL 0.2 mg/dL (0.2-1)
[2022-07-01 13:40] LABS: ALK PHOS 146 U/L (45-117)
[2022-07-01 13:42] LABS: ANION GAP 11 MMOL/L (8-16)
[2022-07-01] MEDS ORDERED: DEXTROSE 50%-WATER - 25 GM/50 ML VIAL IVPUSH ONE (14:49)
[2022-07-01] MEDS ORDERED: INSULIN REGULAR HUMAN 100 UNITS/ML *VIAL SQ ONE ×3 (14:49→17:30)
[2022-07-01] MEDS ORDERED: CALCIUM GLUCONATE 10% - 1,000 MG/10 ML VIAL IVPUSH ONE (14:49)
[2022-07-01] MEDS ORDERED: DEXTROSE 50%-WATER 25 GM/50 ML DISP.SYRIN ONE (15:32)
[2022-07-01] MEDS ORDERED: PIPERACILLIN/TAZOB 2.25 GM 2.25 GM in DEXTROSE 5%-WATER - 50 ML IVPB SCH (16:45)
[2022-07-01] MEDS: INSULIN SLIDING SCALE (NOVOLOG) 1 VIAL SQ SCH (16:56)
[2022-07-01] MEDS ORDERED: INSULIN (NOVOLOG) ASPART 100 UNITS/ML 10ML VIAL ONE (16:58)
[2022-07-01] MEDS ORDERED: INSULIN REGULAR HUMAN 100 UNITS/ML *VIAL IVPUSH ONE ×2 (16:58→20:45)
[2022-07-01] MEDS: PIPERACILLIN/TAZOB 2.25 GM 2.25 GM in DEXTROSE 5%-WATER - 50 ML IVPB SCH ×2 (17:16→23:00)
[2022-07-01] MEDS: PANTOPRAZOLE 40 MG TABLET PO SCH (17:16)
[2022-07-01] MEDS: [UNRECOGNIZED DRUG - OTHER] PO SCH (17:40)
[2022-07-01] MEDS: PROTEASE PO SCH (17:40)
[2022-07-01] MEDS: LIPASE PO SCH (17:40)
[2022-07-01] MEDS: AMYLASE PO SCH (17:40)
[2022-07-01] MEDS ORDERED: DEXTROSE 50%-WATER 25 GM/50 ML DISP.SYRIN IVPUSH ONE (21:00)
[2022-07-01] MEDS: SODIUM ZIRCONIUM CYCLOSILICATE (LOKELMA) 5 GM PACKET PO SCH (21:38)
[2022-07-01] MEDS ORDERED: ATORVASTATIN CA 20 MG TABLET (FP) PO SCH (22:00)
[2022-07-01 23:44] LABS: CALCIUM 7.6 mg/dL (8.5-10.1)
[2022-07-01 23:45] LABS: BLOOD UREA NITROGEN 42.4 mg/dL (7-18)
[2022-07-01 23:48] LABS: CREATININE 2.7 mg/dL (0.55-1.3)
[2022-07-02] MEDS: INSULIN (LEVEMIR) 100 UNITS/ML UNITS SQ SCH ×2 (00:32→21:51)
[2022-07-02] MEDS: INSULIN SLIDING SCALE (NOVOLOG) 1 VIAL SQ SCH ×5 (00:35→21:47)
[2022-07-02] MEDS ORDERED: INSULIN (NOVOLOG) ASPART 100 UNITS/ML 10ML VIAL ONE ×5 (00:35→21:46)
[2022-07-02] MEDS: methylPREDNISolone NA SUCC 40 MG/1 ML VIAL IVPUSH SCH ×3 (03:08→17:42)
[2022-07-02] MEDS: PIPERACILLIN/TAZOB 2.25 GM 2.25 GM in DEXTROSE 5%-WATER - 50 ML IVPB SCH ×2 (03:09→09:54)
[2022-07-02] MEDS: FUROSEMIDE 40 MG/4 ML INJECTABLE VIAL IVPUSH SCH ×2 (06:19→13:07)
[2022-07-02 08:00] LABS: HEMOGLOBIN 7.8 GM/dL (11.7-16.9); MCH 24.8 pg (25.7-33.7); MCHC 32.7 g/dl (32.0-35.9); MEAN PLT VOLUME 8.6 fl (7.5-11.1); PLATELET COUNT 414 10^3/uL (134-434); RBC 3.15 M/mm3 (4.00-5.60); RDW 21.2 % (11.9-15.9); WHITE BLOOD COUNT 17.5 K/mm3 (4.0-10.0)
[2022-07-02 08:47] LABS: ALBUMIN 2.5 g/dl (3.4-5.0); BLOOD UREA NITROGEN 44.7 mg/dL (7-18)
[2022-07-02 08:49] LABS: CALCIUM 7.2 mg/dL (8.5-10.1); MAGNESIUM 1.8 mg/dL (1.8-2.4)
[2022-07-02 08:50] LABS: CREATININE 2.6 mg/dL (0.55-1.3); PHOSPHOROUS 6.2 mg/dL (2.5-4.9)
[2022-07-02 08:51] LABS: BILIRUBIN,TOTAL 0.2 mg/dL (0.2-1)
[2022-07-02 09:45] LABS: HIV INTERPRETATION NEGATIVE (NEGATIVE)
[2022-07-02] MEDS: PANTOPRAZOLE 40 MG TABLET PO SCH (09:53)
[2022-07-02] MEDS: SODIUM ZIRCONIUM CYCLOSILICATE (LOKELMA) 5 GM PACKET PO SCH ×2 (09:54→21:49)
[2022-07-02] MEDS: MULTIVITAMINS (DAILY MVI) TABLET (FP) PO SCH (09:54)
[2022-07-02] MEDS: THIAMINE HCL 100 MG TABLET (FP) PO SCH (09:54)
[2022-07-02] MEDS: [UNRECOGNIZED DRUG - OTHER] PO SCH ×3 (09:56→17:42)
[2022-07-02] MEDS: PROTEASE PO SCH ×3 (09:56→17:42)
[2022-07-02] MEDS: AMYLASE PO SCH ×3 (09:56→17:42)
[2022-07-02] MEDS: LIPASE PO SCH ×3 (09:56→17:42)
[2022-07-02] MEDS: metoPROLOL SUCCINATE 25 MG TAB.SR.24H (FP) PO SCH (09:59)
[2022-07-02] MEDS: NIFEdipine E.R. 30 MG TABLET PO SCH (10:00)
[2022-07-02] MEDS: FOLIC ACID 1 MG TABLET (FP) PO SCH (10:00)
[2022-07-02] MEDS ORDERED: IRON SUCROSE INJECTION 200 MG in SODIUM CHLORIDE 90 ML IVPB ONE ×2 (12:30→15:49)
[2022-07-02 13:29] LABS: RETICULOCYTES 1.46 % (0.5-1.5)
[2022-07-02 16:54] LABS: BLOOD UREA NITROGEN 50.4 mg/dL (7-18); CALCIUM 7.1 mg/dL (8.5-10.1)
[2022-07-02 16:58] LABS: CREATININE 2.7 mg/dL (0.55-1.3)
[2022-07-02] MEDS: SODIUM BICARBONATE 650 MG TABLET PO SCH (21:51)
[2022-07-03] MEDS: methylPREDNISolone NA SUCC 40 MG/1 ML VIAL IVPUSH SCH ×3 (01:26→22:15)
[2022-07-03] MEDS: FUROSEMIDE 40 MG/4 ML INJECTABLE VIAL IVPUSH SCH ×2 (06:16→14:53)
[2022-07-03] MEDS ORDERED: INSULIN (NOVOLOG) ASPART 100 UNITS/ML 10ML VIAL ONE ×2 (06:56→21:57)
[2022-07-03] MEDS: INSULIN SLIDING SCALE (NOVOLOG) 1 VIAL SQ SCH ×4 (07:05→21:58)
[2022-07-03 07:48] LABS: HEMATOCRIT 27.5 % (35.4-49); HEMOGLOBIN 8.9 GM/dL (11.7-16.9); MCH 24.3 pg (25.7-33.7); MCHC 32.2 g/dl (32.0-35.9); MEAN CELL VOLUME 75.5 fl (80-96); MEAN PLT VOLUME 8.5 fl (7.5-11.1); PLATELET COUNT 475 10^3/uL (134-434); RBC 3.64 M/mm3 (4.00-5.60); RDW 21.6 % (11.9-15.9); WHITE BLOOD COUNT 17.1 K/mm3 (4.0-10.0)
[2022-07-03] MEDS ORDERED: IRON SUCROSE INJECTION 200 MG in SODIUM CHLORIDE 90 ML IVPB SCH (08:00)
[2022-07-03 08:10] LABS: ALBUMIN 2.6 g/dl (3.4-5.0); BLOOD UREA NITROGEN 54.1 mg/dL (7-18)
[2022-07-03 08:11] LABS: MAGNESIUM 1.8 mg/dL (1.8-2.4)
[2022-07-03 08:13] LABS: PHOSPHOROUS 5.8 mg/dL (2.5-4.9)
[2022-07-03 08:15] LABS: BILIRUBIN,TOTAL 0.1 mg/dL (0.2-1); CREATININE 2.5 mg/dL (0.55-1.3); TOT PROT 7.2 g/dl (6.4-8.2)
[2022-07-03] MEDS: PROTEASE PO SCH ×3 (09:30→17:16)
[2022-07-03] MEDS: LIPASE PO SCH ×3 (09:30→17:16)
[2022-07-03] MEDS: [UNRECOGNIZED DRUG - OTHER] PO SCH ×3 (09:30→17:16)
[2022-07-03] MEDS: AMYLASE PO SCH ×3 (09:30→17:16)
[2022-07-03] MEDS: NIFEdipine E.R. 30 MG TABLET PO SCH (09:33)
[2022-07-03] MEDS: FOLIC ACID 1 MG TABLET (FP) PO SCH (09:33)
[2022-07-03] MEDS: THIAMINE HCL 100 MG TABLET (FP) PO SCH (09:33)
[2022-07-03] MEDS: metoPROLOL SUCCINATE 25 MG TAB.SR.24H (FP) PO SCH (09:33)
[2022-07-03] MEDS: PANTOPRAZOLE 40 MG TABLET PO SCH (09:33)
[2022-07-03] MEDS: SODIUM BICARBONATE 650 MG TABLET PO SCH ×2 (09:34→21:37)
[2022-07-03] MEDS: SODIUM ZIRCONIUM CYCLOSILICATE (LOKELMA) 5 GM PACKET PO SCH ×2 (09:35→21:37)
[2022-07-03] MEDS: MULTIVITAMINS (DAILY MVI) TABLET (FP) PO SCH (09:36)
[2022-07-03] MEDS ORDERED: methylPREDNISolone NA SUCC 40 MG/1 ML VIAL IVPUSH SCH (12:30)
[2022-07-03] MEDS: INSULIN (LEVEMIR) 100 UNITS/ML UNITS SQ SCH (21:56)
[2022-07-04] MEDS: FUROSEMIDE 40 MG/4 ML INJECTABLE VIAL IVPUSH SCH ×2 (06:00→14:21)
[2022-07-04] MEDS ORDERED: INSULIN (NOVOLOG) ASPART 100 UNITS/ML 10ML VIAL ONE ×2 (06:01→16:29)
[2022-07-04] MEDS: INSULIN SLIDING SCALE (NOVOLOG) 1 VIAL SQ SCH ×3 (06:09→16:31)
[2022-07-04 07:39] LABS: HEMATOCRIT 28.1 % (35.4-49); HEMOGLOBIN 9.2 GM/dL (11.7-16.9); MCH 24.7 pg (25.7-33.7); MCHC 32.8 g/dl (32.0-35.9); MEAN CELL VOLUME 75.2 fl (80-96); MEAN PLT VOLUME 8.5 fl (7.5-11.1); PLATELET COUNT 483 10^3/uL (134-434); RBC 3.74 M/mm3 (4.00-5.60); RDW 21.6 % (11.9-15.9); WHITE BLOOD COUNT 14.4 K/mm3 (4.0-10.0)
[2022-07-04 07:57] LABS: CHLORIDE 107 mmol/L (98-107); SODIUM 136 mmol/L (136-145)
[2022-07-04 08:00] LABS: ANION GAP 7 MMOL/L (8-16); CO2 22 mmol/L (21-32); GLUCOSE,RANDOM 227 mg/dL (74-106)
[2022-07-04 08:01] LABS: ALBUMIN 2.6 g/dl (3.4-5.0); BLOOD UREA NITROGEN 56.9 mg/dL (7-18); MAGNESIUM 1.8 mg/dL (1.8-2.4)
[2022-07-04 08:03] LABS: CREATININE 2.3 mg/dL (0.55-1.3); PHOSPHOROUS 5.6 mg/dL (2.5-4.9); SGOT/AST 6 U/L (15-37); SGPT/ALT 22 U/L (13-61)
[2022-07-04 08:05] LABS: BILIRUBIN,TOTAL 0.2 mg/dL (0.2-1); TOT PROT 7.1 g/dl (6.4-8.2)
[2022-07-04 08:06] LABS: ALK PHOS 104 U/L (45-117)
[2022-07-04 08:19] LABS: CALCIUM 6.9 mg/dL (8.5-10.1)
[2022-07-04] MEDS: [UNRECOGNIZED DRUG - OTHER] PO SCH ×3 (08:31→17:09)
[2022-07-04] MEDS: AMYLASE PO SCH ×3 (08:31→17:09)
[2022-07-04] MEDS: PROTEASE PO SCH ×3 (08:31→17:09)
[2022-07-04] MEDS: LIPASE PO SCH ×3 (08:31→17:09)
[2022-07-04] MEDS: THIAMINE HCL 100 MG TABLET (FP) PO SCH (09:26)
[2022-07-04] MEDS: NIFEdipine E.R. 30 MG TABLET PO SCH (09:26)
[2022-07-04] MEDS: PANTOPRAZOLE 40 MG TABLET PO SCH (09:26)
[2022-07-04] MEDS: SODIUM BICARBONATE 650 MG TABLET PO SCH (09:26)
[2022-07-04] MEDS: FOLIC ACID 1 MG TABLET (FP) PO SCH (09:26)
[2022-07-04] MEDS: MULTIVITAMINS (DAILY MVI) TABLET (FP) PO SCH (09:26)
[2022-07-04] MEDS: metoPROLOL SUCCINATE 25 MG TAB.SR.24H (FP) PO SCH (09:26)
[2022-07-04] MEDS: SODIUM ZIRCONIUM CYCLOSILICATE (LOKELMA) 5 GM PACKET PO SCH (09:27)
[2022-07-04] MEDS: methylPREDNISolone NA SUCC 40 MG/1 ML VIAL IVPUSH SCH (09:27)
[2022-07-04] MEDS ORDERED: CALCIUM 500MG/VIT-D 200 UNITS COMBO TABLET (FP) PO SCH (12:15)
[2022-07-04] MEDS: CALCIUM ACETATE 667 MG CAPSULE (FP) PO SCH ×2 (12:24→17:08)
[2022-07-04] MEDS ORDERED: PENICILLIN G BENZATHINE 2,400,000 UNIT/4 ML PFS IM ONE (14:00)
[2022-07-04 14:48] VITALS: RESP 18
[2022-07-04 16:08] LABS: GLIADIN ANTIBODY IGA 7 units (0-19); GLIADIN ANTIBODY IGG 4 units (0-19); TRANSGLUTAMINASE IGG < 2 U/mL (0-5)
[2022-07-04] MEDS ORDERED: IRON SUCROSE INJECTION 200 MG in SODIUM CHLORIDE 90 ML IVPB ONE (17:00)
[2022-07-04 20:51] VITALS: BP 123/65; PULSE 86; TEMP 99
== END 2022-07-04 20:05 | disposition home or self-care (01) | DRG 663 ==
LOC: JER 22:11 → OBSVTOIN 07-01 01:04 → JERBED 07-01 01:04 → J4W 07-01 09:17
PROVIDERS: ADMIT Internal Medicine; ATTEND Internal Medicine
PROC: 30233N1 Transfusion of Nonautologous Red Blood Cells into Peripheral Vein, Percutaneous Approach (ICD-10-PCS; principal; 2022-07-01)
DX: D50.0 Iron deficiency anemia secondary to blood loss (chronic) (principal); I13.0 Hypertensive heart and chronic kidney disease with heart failure and stage 1 through stage 4 chronic kidney disease, or unspecified chronic kidney disease; I25.10 Atherosclerotic heart disease of native coronary artery without angina pectoris; E11.51 Type 2 diabetes mellitus with diabetic peripheral angiopathy without gangrene; E78.5 Hyperlipidemia, unspecified; E87.5 Hyperkalemia; F10.10 Alcohol abuse, uncomplicated; F14.10 Cocaine abuse, uncomplicated; K21.9 Gastro-esophageal reflux disease without esophagitis; F19.10 Other psychoactive substance abuse, uncomplicated; M54.50 Low back pain, unspecified; F17.210 Nicotine dependence, cigarettes, uncomplicated; A53.9 Syphilis, unspecified; E11.22 Type 2 diabetes mellitus with diabetic chronic kidney disease; N18.4 Chronic kidney disease, stage 4 (severe); I50.33 Acute on chronic diastolic (congestive) heart failure; D64.9 Anemia, unspecified; K31.89 Other diseases of stomach and duodenum; K86.0 Alcohol-induced chronic pancreatitis; K83.8 Other specified diseases of biliary tract; K44.9 Diaphragmatic hernia without obstruction or gangrene; D72.829 Elevated white blood cell count, unspecified; E83.51 Hypocalcemia; L80 Vitiligo; E83.39 Other disorders of phosphorus metabolism; Z89.421 Acquired absence of other right toe(s); Z95.1 Presence of aortocoronary bypass graft
CPT/HCPCS: 0241U-QW; 36415; 36430; 71045-TC-FY; 71250-TC; 80048; 80053; 82105; 82272; 82728; 82784; 82962; 83036; 83516; 83540; 83550; 83735; 83880; 84100; 84132; 84155; 84165; 84484; 85025; 85027; 85045; 85610; 85730; 86140; 86301; 86334; 86705; 86803; 86850; 86900; 86901; 86922; 87340; 87389; 87517; 93005; 93010; 99285-25; J1756; P9058

== ENCOUNTER 2023-01-30 21:04 | Inpatient (IN) | payer OTHER ==
[2023-01-31 00:34] VITALS: BMI 20.3
[2023-01-31] MEDS ORDERED: POLYETHYLENE GLYCOL (HEALTHYLAX) 3350 17 GM PACKET PO PRN (01:24)
[2023-01-31] MEDS ORDERED: guaiFENesin 600 MG TABLET.ER (FP) PO PRN (01:24)
[2023-01-31] MEDS ORDERED: NALOXONE HCL (KLOXXADO) 8 MG SPRAY NS PRN (01:24)
[2023-01-31] MEDS ORDERED: MAGNESIUM HYDROX 2400MG/30ML ORAL SUSPENSION 30 ML CUP PO PRN (01:24)
[2023-01-31] MEDS ORDERED: IBUPROFEN 600 MG TABLET (FP) PO PRN (01:24)
[2023-01-31] MEDS ORDERED: ACETAMINOPHEN 325 MG TABLET (FP) PO PRN (01:24)
[2023-01-31] MEDS ORDERED: MAG HYDROX/AL HYDROX/SIMETH 30 ML UNIT-DOSE CUP PO PRN (01:24)
[2023-01-31] MEDS ORDERED: NICOTINE POLACRILEX 2 MG GUM BUC PRN (01:24)
[2023-01-31] MEDS ORDERED: IBUPROFEN 400 MG TABLET (FP) PO PRN (01:24)
[2023-01-31] MEDS ORDERED: NALOXONE HCL 0.4 MG/ML VIAL IM PRN (01:24)
[2023-01-31] MEDS ORDERED: BENZONATATE 200 MG CAPSULE PO PRN (01:24)
[2023-01-31] MEDS ORDERED: COLLOIDAL OATMEAL 1 BAR EACH TP PRN (01:24)
[2023-01-31] MEDS ORDERED: BENZOCAINE/MENTHOL (CHLORASEPTIC ) LOZENGE MM PRN (01:24)
[2023-01-31] MEDS ORDERED: LOPERAMIDE HCL 2 MG CAPSULE PO PRN (01:24)
[2023-01-31] MEDS: INSULIN (NOVOLOG) ASPART 100 UNITS/ML 10ML VIAL SQ SCH ×3 (07:49→16:44)
[2023-01-31] MEDS ORDERED: TUBERCULIN PPD 5 TU/0.1ML SYRINGE (IN PATIENT USE ONLY) ID ONE (08:00)
[2023-01-31] MEDS: ASPIRIN 81 MG CHEWABLE TABLETS PO SCH (10:33)
[2023-01-31] MEDS: NICOTINE 14 MG/24 HOURS TOPICAL PATCH TD SCH (10:33)
[2023-01-31] MEDS: PRENATAL VITAMINS W/ FOLIC ACID TABLET (FP) PO SCH (10:34)
[2023-01-31] MEDS: FUROSEMIDE 40 MG TABLET (FP) PO SCH (10:34)
[2023-01-31] MEDS: FERROUS SO4 325 MG TABLET (FP) PO SCH (10:34)
[2023-01-31] MEDS: ERGOCALCIFEROL (VIT D2) 50,000 UNIT (1.25 MG) CAPSULE PO SCH (12:08)
[2023-01-31] MEDS: PANTOPRAZOLE 20 MG TABLET PO SCH (14:27)
[2023-01-31] MEDS: metoPROLOL SUCCINATE 25 MG TAB.SR.24H (FP) PO SCH (14:27)
[2023-01-31] MEDS: LIPASE/PROTEASE/AMYLASE 6,000 UNIT CAPSULE PO SCH (16:45)
[2023-01-31 17:24] LABS: HEMATOCRIT 30.1 % (35.4-49); HEMOGLOBIN 9.5 GM/dL (11.7-16.9); MCH 25.8 pg (25.7-33.7); MCHC 31.5 g/dl (32.0-35.9); MEAN CELL VOLUME 81.9 fl (80-96); PLATELET COUNT 364 10^3/uL (134-434); RBC 3.68 M/mm3 (4.00-5.60); RDW 17.2 % (11.9-15.9); WHITE BLOOD COUNT 5.4 K/mm3 (4.0-10.0)
[2023-01-31 17:36] LABS: POTASSIUM 4.3 mmol/L (3.5-5.1)
[2023-01-31 17:38] LABS: ALBUMIN 2.8 g/dl (3.4-5.0); CALCIUM 8.3 mg/dL (8.5-10.1)
[2023-01-31 17:39] LABS: BLOOD UREA NITROGEN 31.5 mg/dL (7-18)
[2023-01-31 17:41] LABS: CREATININE 2.4 mg/dL (0.55-1.3)
[2023-01-31 17:43] LABS: BILIRUBIN,TOTAL 0.3 mg/dL (0.2-1); TOT PROT 6.3 g/dl (6.4-8.2)
[2023-01-31 18:40] LABS: SYPHILIS W/ RPR CONF REACTIVE (NONREACTIVE)
[2023-01-31] MEDS: THIAMINE HCL 100 MG TABLET (FP) PO SCH (21:04)
[2023-01-31] MEDS: MELATONIN 5 MG TABLETS PO SCH (21:04)
[2023-02-01] MEDS: INSULIN (NOVOLOG) ASPART 100 UNITS/ML 10ML VIAL SQ SCH ×3 (06:17→16:51)
[2023-02-01] MEDS: LIPASE/PROTEASE/AMYLASE 6,000 UNIT CAPSULE PO SCH ×3 (07:09→17:59)
[2023-02-01] MEDS: PANTOPRAZOLE 20 MG TABLET PO SCH (09:37)
[2023-02-01] MEDS: ASPIRIN 81 MG CHEWABLE TABLETS PO SCH (09:37)
[2023-02-01] MEDS: PRENATAL VITAMINS W/ FOLIC ACID TABLET (FP) PO SCH (09:37)
[2023-02-01] MEDS: FUROSEMIDE 40 MG TABLET (FP) PO SCH (09:37)
[2023-02-01] MEDS: NICOTINE 14 MG/24 HOURS TOPICAL PATCH TD SCH (09:38)
[2023-02-01] MEDS: metoPROLOL SUCCINATE 25 MG TAB.SR.24H (FP) PO SCH (10:28)
[2023-02-01] MEDS ORDERED: INSULIN (NOVOLOG) ASPART 100 UNITS/ML 10ML VIAL ONE (12:05)
[2023-02-01 14:15] LABS: EPI CELLS 9 /uL (0-25.1); HYALINE CASTS 0 /uL (0-3.1); PH,URINE >= 9.0 (5.0-8.0); URINE APPEARANCE CLEAR; URINE BACTERIA 22 /uL (0-1359); URINE BILIRUBIN NEGATIVE (NEGATIVE); URINE COLOR YELLOW; URINE GLUCOSE (UA) NEGATIVE (NEGATIVE); URINE KETONE NEGATIVE (NEGATIVE); URINE LEUK ESTERASE NEGATIVE (NEGATIVE); URINE NITRITE NEGATIVE (NEGATIVE); URINE PROTEIN 1+ (NEGATIVE); URINE RBC 1 /uL (0-23.9); URINE UROBILINOGEN 0.2 mg/dL (0.2-1.0); URINE WBC 25 /uL (0-25.8)
[2023-02-01] MEDS: MELATONIN 5 MG TABLETS PO SCH (21:23)
[2023-02-01] MEDS: THIAMINE HCL 100 MG TABLET (FP) PO SCH (21:23)
[2023-02-02] MEDS: INSULIN (NOVOLOG) ASPART 100 UNITS/ML 10ML VIAL SQ SCH ×3 (07:22→17:08)
[2023-02-02] MEDS: LIPASE/PROTEASE/AMYLASE 6,000 UNIT CAPSULE PO SCH ×3 (07:23→17:23)
[2023-02-02] MEDS: FERROUS SO4 325 MG TABLET (FP) PO SCH (08:08)
[2023-02-02] MEDS: metoPROLOL SUCCINATE 25 MG TAB.SR.24H (FP) PO SCH (09:37)
[2023-02-02] MEDS: ASPIRIN 81 MG CHEWABLE TABLETS PO SCH (09:37)
[2023-02-02] MEDS: NICOTINE 14 MG/24 HOURS TOPICAL PATCH TD SCH (09:37)
[2023-02-02] MEDS: PANTOPRAZOLE 20 MG TABLET PO SCH (09:37)
[2023-02-02] MEDS: PRENATAL VITAMINS W/ FOLIC ACID TABLET (FP) PO SCH (09:37)
[2023-02-02] MEDS: FUROSEMIDE 40 MG TABLET (FP) PO SCH (09:37)
[2023-02-02] MEDS ORDERED: INSULIN (NOVOLOG) ASPART 100 UNITS/ML 10ML VIAL ONE (11:54)
[2023-02-02] MEDS: MELATONIN 5 MG TABLETS PO SCH (21:07)
[2023-02-02] MEDS: THIAMINE HCL 100 MG TABLET (FP) PO SCH (21:07)
[2023-02-03] MEDS: INSULIN (NOVOLOG) ASPART 100 UNITS/ML 10ML VIAL SQ SCH ×2 (06:10→16:27)
[2023-02-03] MEDS: LIPASE/PROTEASE/AMYLASE 6,000 UNIT CAPSULE PO SCH ×3 (07:18→16:29)
[2023-02-03] MEDS: NICOTINE 14 MG/24 HOURS TOPICAL PATCH TD SCH (10:04)
[2023-02-03] MEDS: PRENATAL VITAMINS W/ FOLIC ACID TABLET (FP) PO SCH (10:04)
[2023-02-03] MEDS: ASPIRIN 81 MG CHEWABLE TABLETS PO SCH (10:04)
[2023-02-03] MEDS: FUROSEMIDE 40 MG TABLET (FP) PO SCH (10:04)
[2023-02-03] MEDS: metoPROLOL SUCCINATE 25 MG TAB.SR.24H (FP) PO SCH (10:04)
[2023-02-03] MEDS: PANTOPRAZOLE 20 MG TABLET PO SCH (10:05)
[2023-02-03] MEDS ORDERED: INSULIN (NOVOLOG) ASPART 100 UNITS/ML 10ML VIAL ONE (16:27)
[2023-02-03] MEDS: THIAMINE HCL 100 MG TABLET (FP) PO SCH (21:10)
[2023-02-03] MEDS: MELATONIN 5 MG TABLETS PO SCH (21:10)
[2023-02-04] MEDS: INSULIN (NOVOLOG) ASPART 100 UNITS/ML 10ML VIAL SQ SCH ×2 (06:14→17:41)
[2023-02-04] MEDS: LIPASE/PROTEASE/AMYLASE 6,000 UNIT CAPSULE PO SCH ×3 (07:09→17:41)
[2023-02-04] MEDS: FERROUS SO4 325 MG TABLET (FP) PO SCH (07:49)
[2023-02-04] MEDS: metoPROLOL SUCCINATE 25 MG TAB.SR.24H (FP) PO SCH (10:03)
[2023-02-04] MEDS: NICOTINE 14 MG/24 HOURS TOPICAL PATCH TD SCH (10:04)
[2023-02-04] MEDS: FUROSEMIDE 40 MG TABLET (FP) PO SCH (10:04)
[2023-02-04] MEDS: PRENATAL VITAMINS W/ FOLIC ACID TABLET (FP) PO SCH (10:04)
[2023-02-04] MEDS: ASPIRIN 81 MG CHEWABLE TABLETS PO SCH (10:04)
[2023-02-04] MEDS: PANTOPRAZOLE 20 MG TABLET PO SCH (10:04)
[2023-02-04] MEDS ORDERED: NICOTINE 14 MG/24 HOURS TOPICAL PATCH TD PRN (16:07)
[2023-02-04] MEDS: SEVELAMER CARBONATE 800 MG TAB (FP) PO SCH ×2 (16:26→21:33)
[2023-02-04] MEDS: THIAMINE HCL 100 MG TABLET (FP) PO SCH (21:33)
[2023-02-04] MEDS: MELATONIN 5 MG TABLETS PO SCH (21:34)
[2023-02-05] MEDS: INSULIN (NOVOLOG) ASPART 100 UNITS/ML 10ML VIAL SQ SCH ×2 (06:10→16:43)
[2023-02-05] MEDS: LIPASE/PROTEASE/AMYLASE 6,000 UNIT CAPSULE PO SCH ×3 (07:04→16:44)
[2023-02-05] MEDS: ASPIRIN 81 MG CHEWABLE TABLETS PO SCH (09:53)
[2023-02-05] MEDS: PRENATAL VITAMINS W/ FOLIC ACID TABLET (FP) PO SCH (09:54)
[2023-02-05] MEDS: PANTOPRAZOLE 20 MG TABLET PO SCH (09:54)
[2023-02-05] MEDS: metoPROLOL SUCCINATE 25 MG TAB.SR.24H (FP) PO SCH (09:54)
[2023-02-05] MEDS: SEVELAMER CARBONATE 800 MG TAB (FP) PO SCH ×2 (09:54→21:15)
[2023-02-05] MEDS: FUROSEMIDE 40 MG TABLET (FP) PO SCH (09:54)
[2023-02-05] MEDS: MELATONIN 5 MG TABLETS PO SCH (21:15)
[2023-02-05] MEDS: THIAMINE HCL 100 MG TABLET (FP) PO SCH (21:15)
[2023-02-06] MEDS: INSULIN (NOVOLOG) ASPART 100 UNITS/ML 10ML VIAL SQ SCH ×2 (06:20→16:19)
[2023-02-06] MEDS: FERROUS SO4 325 MG TABLET (FP) PO SCH (07:31)
[2023-02-06] MEDS: LIPASE/PROTEASE/AMYLASE 6,000 UNIT CAPSULE PO SCH ×3 (07:31→16:40)
[2023-02-06] MEDS: ASPIRIN 81 MG CHEWABLE TABLETS PO SCH (09:41)
[2023-02-06] MEDS: SEVELAMER CARBONATE 800 MG TAB (FP) PO SCH ×2 (09:42→21:30)
[2023-02-06] MEDS: metoPROLOL SUCCINATE 25 MG TAB.SR.24H (FP) PO SCH (09:42)
[2023-02-06] MEDS: PANTOPRAZOLE 20 MG TABLET PO SCH (09:42)
[2023-02-06] MEDS: FUROSEMIDE 40 MG TABLET (FP) PO SCH (09:42)
[2023-02-06] MEDS: PRENATAL VITAMINS W/ FOLIC ACID TABLET (FP) PO SCH (09:43)
[2023-02-06] MEDS: THIAMINE HCL 100 MG TABLET (FP) PO SCH (21:30)
[2023-02-06] MEDS: MELATONIN 5 MG TABLETS PO SCH (21:30)
[2023-02-07] MEDS: INSULIN (NOVOLOG) ASPART 100 UNITS/ML 10ML VIAL SQ SCH ×2 (07:10→17:05)
[2023-02-07] MEDS: ERGOCALCIFEROL (VIT D2) 50,000 UNIT (1.25 MG) CAPSULE PO SCH (07:46)
[2023-02-07] MEDS: LIPASE/PROTEASE/AMYLASE 6,000 UNIT CAPSULE PO SCH ×3 (07:47→17:32)
[2023-02-07] MEDS: PANTOPRAZOLE 20 MG TABLET PO SCH (09:40)
[2023-02-07] MEDS: PRENATAL VITAMINS W/ FOLIC ACID TABLET (FP) PO SCH (09:40)
[2023-02-07] MEDS: FUROSEMIDE 40 MG TABLET (FP) PO SCH (09:40)
[2023-02-07] MEDS: ASPIRIN 81 MG CHEWABLE TABLETS PO SCH (09:40)
[2023-02-07] MEDS: SEVELAMER CARBONATE 800 MG TAB (FP) PO SCH ×2 (09:44→21:27)
[2023-02-07] MEDS: metoPROLOL SUCCINATE 25 MG TAB.SR.24H (FP) PO SCH (09:45)
[2023-02-07] MEDS: THIAMINE HCL 100 MG TABLET (FP) PO SCH (21:27)
[2023-02-07] MEDS: MELATONIN 5 MG TABLETS PO SCH (21:27)
[2023-02-08] MEDS: LIPASE/PROTEASE/AMYLASE 6,000 UNIT CAPSULE PO SCH ×3 (07:02→17:16)
[2023-02-08] MEDS: INSULIN (NOVOLOG) ASPART 100 UNITS/ML 10ML VIAL SQ SCH ×2 (07:02→16:26)
[2023-02-08] MEDS: FERROUS SO4 325 MG TABLET (FP) PO SCH (07:44)
[2023-02-08] MEDS: ASPIRIN 81 MG CHEWABLE TABLETS PO SCH (09:54)
[2023-02-08] MEDS: FUROSEMIDE 40 MG TABLET (FP) PO SCH (09:54)
[2023-02-08] MEDS: SEVELAMER CARBONATE 800 MG TAB (FP) PO SCH ×2 (09:55→21:22)
[2023-02-08] MEDS: PRENATAL VITAMINS W/ FOLIC ACID TABLET (FP) PO SCH (09:55)
[2023-02-08] MEDS: metoPROLOL SUCCINATE 25 MG TAB.SR.24H (FP) PO SCH (09:55)
[2023-02-08] MEDS: PANTOPRAZOLE 20 MG TABLET PO SCH (09:55)
[2023-02-08] MEDS: THIAMINE HCL 100 MG TABLET (FP) PO SCH (21:22)
[2023-02-08] MEDS: MELATONIN 5 MG TABLETS PO SCH (21:22)
[2023-02-09] MEDS: INSULIN (NOVOLOG) ASPART 100 UNITS/ML 10ML VIAL SQ SCH ×2 (06:09→16:26)
[2023-02-09] MEDS: LIPASE/PROTEASE/AMYLASE 6,000 UNIT CAPSULE PO SCH ×3 (07:10→17:25)
[2023-02-09] MEDS: metoPROLOL SUCCINATE 25 MG TAB.SR.24H (FP) PO SCH (10:07)
[2023-02-09] MEDS: SEVELAMER CARBONATE 800 MG TAB (FP) PO SCH ×2 (10:07→21:24)
[2023-02-09] MEDS: FUROSEMIDE 40 MG TABLET (FP) PO SCH (10:07)
[2023-02-09] MEDS: ASPIRIN 81 MG CHEWABLE TABLETS PO SCH (10:07)
[2023-02-09] MEDS: PANTOPRAZOLE 20 MG TABLET PO SCH (10:07)
[2023-02-09] MEDS: PRENATAL VITAMINS W/ FOLIC ACID TABLET (FP) PO SCH (10:07)
[2023-02-09] MEDS: THIAMINE HCL 100 MG TABLET (FP) PO SCH (21:23)
[2023-02-09] MEDS: MELATONIN 5 MG TABLETS PO SCH (21:23)
[2023-02-10] MEDS: INSULIN (NOVOLOG) ASPART 100 UNITS/ML 10ML VIAL SQ SCH ×2 (07:57→16:20)
[2023-02-10] MEDS: LIPASE/PROTEASE/AMYLASE 6,000 UNIT CAPSULE PO SCH ×3 (07:58→16:33)
[2023-02-10] MEDS: FERROUS SO4 325 MG TABLET (FP) PO SCH (07:58)
[2023-02-10] MEDS: FUROSEMIDE 40 MG TABLET (FP) PO SCH (10:09)
[2023-02-10] MEDS: metoPROLOL SUCCINATE 25 MG TAB.SR.24H (FP) PO SCH (10:09)
[2023-02-10] MEDS: PRENATAL VITAMINS W/ FOLIC ACID TABLET (FP) PO SCH (10:09)
[2023-02-10] MEDS: SEVELAMER CARBONATE 800 MG TAB (FP) PO SCH ×2 (10:09→21:15)
[2023-02-10] MEDS: PANTOPRAZOLE 20 MG TABLET PO SCH (10:09)
[2023-02-10] MEDS: ASPIRIN 81 MG CHEWABLE TABLETS PO SCH (10:09)
[2023-02-10] MEDS: MELATONIN 5 MG TABLETS PO SCH (21:15)
[2023-02-10] MEDS: THIAMINE HCL 100 MG TABLET (FP) PO SCH (21:15)
[2023-02-11] MEDS: INSULIN (NOVOLOG) ASPART 100 UNITS/ML 10ML VIAL SQ SCH ×3 (06:10→18:07)
[2023-02-11] MEDS: LIPASE/PROTEASE/AMYLASE 6,000 UNIT CAPSULE PO SCH ×3 (07:08→16:46)
[2023-02-11] MEDS: metoPROLOL SUCCINATE 25 MG TAB.SR.24H (FP) PO SCH (09:57)
[2023-02-11] MEDS: ASPIRIN 81 MG CHEWABLE TABLETS PO SCH (09:57)
[2023-02-11] MEDS: FUROSEMIDE 40 MG TABLET (FP) PO SCH (09:57)
[2023-02-11] MEDS: PRENATAL VITAMINS W/ FOLIC ACID TABLET (FP) PO SCH (09:57)
[2023-02-11] MEDS: PANTOPRAZOLE 20 MG TABLET PO SCH (09:57)
[2023-02-11] MEDS: SEVELAMER CARBONATE 800 MG TAB (FP) PO SCH ×2 (09:57→21:08)
[2023-02-11] MEDS: THIAMINE HCL 100 MG TABLET (FP) PO SCH (21:08)
[2023-02-11] MEDS: MELATONIN 5 MG TABLETS PO SCH (21:08)
[2023-02-12] MEDS: INSULIN (NOVOLOG) ASPART 100 UNITS/ML 10ML VIAL SQ SCH ×2 (06:13→16:54)
[2023-02-12] MEDS: LIPASE/PROTEASE/AMYLASE 6,000 UNIT CAPSULE PO SCH ×3 (07:30→16:54)
[2023-02-12] MEDS: FERROUS SO4 325 MG TABLET (FP) PO SCH (07:40)
[2023-02-12] MEDS: ASPIRIN 81 MG CHEWABLE TABLETS PO SCH (10:19)
[2023-02-12] MEDS: SEVELAMER CARBONATE 800 MG TAB (FP) PO SCH ×2 (10:19→21:10)
[2023-02-12] MEDS: FUROSEMIDE 40 MG TABLET (FP) PO SCH (10:19)
[2023-02-12] MEDS: PANTOPRAZOLE 20 MG TABLET PO SCH (10:19)
[2023-02-12] MEDS: metoPROLOL SUCCINATE 25 MG TAB.SR.24H (FP) PO SCH (10:20)
[2023-02-12] MEDS: PRENATAL VITAMINS W/ FOLIC ACID TABLET (FP) PO SCH (10:20)
[2023-02-12] MEDS: THIAMINE HCL 100 MG TABLET (FP) PO SCH (21:10)
[2023-02-12] MEDS: MELATONIN 5 MG TABLETS PO SCH (21:10)
[2023-02-13] MEDS: INSULIN (NOVOLOG) ASPART 100 UNITS/ML 10ML VIAL SQ SCH ×2 (06:11→16:33)
[2023-02-13] MEDS: LIPASE/PROTEASE/AMYLASE 6,000 UNIT CAPSULE PO SCH ×3 (07:40→17:01)
[2023-02-13] MEDS: PANTOPRAZOLE 20 MG TABLET PO SCH (09:53)
[2023-02-13] MEDS: FUROSEMIDE 40 MG TABLET (FP) PO SCH (09:53)
[2023-02-13] MEDS: metoPROLOL SUCCINATE 25 MG TAB.SR.24H (FP) PO SCH (09:54)
[2023-02-13] MEDS: ASPIRIN 81 MG CHEWABLE TABLETS PO SCH (09:54)
[2023-02-13] MEDS: SEVELAMER CARBONATE 800 MG TAB (FP) PO SCH ×2 (09:54→21:13)
[2023-02-13] MEDS: PRENATAL VITAMINS W/ FOLIC ACID TABLET (FP) PO SCH (09:54)
[2023-02-13] MEDS: MELATONIN 5 MG TABLETS PO SCH (21:13)
[2023-02-13] MEDS: THIAMINE HCL 100 MG TABLET (FP) PO SCH (21:13)
[2023-02-14] MEDS: INSULIN (NOVOLOG) ASPART 100 UNITS/ML 10ML VIAL SQ SCH (06:07)
[2023-02-14 06:57] VITALS: BP 145/89; PULSE 92; RESP 18; TEMP 98.1
[2023-02-14] MEDS: LIPASE/PROTEASE/AMYLASE 6,000 UNIT CAPSULE PO SCH (07:12)
[2023-02-14] MEDS: FERROUS SO4 325 MG TABLET (FP) PO SCH (07:38)
[2023-02-14] MEDS: ERGOCALCIFEROL (VIT D2) 50,000 UNIT (1.25 MG) CAPSULE PO SCH (07:39)
[2023-02-14] MEDS: metoPROLOL SUCCINATE 25 MG TAB.SR.24H (FP) PO SCH (09:06)
[2023-02-14] MEDS: PANTOPRAZOLE 20 MG TABLET PO SCH (09:06)
[2023-02-14] MEDS: FUROSEMIDE 40 MG TABLET (FP) PO SCH (09:06)
[2023-02-14] MEDS: PRENATAL VITAMINS W/ FOLIC ACID TABLET (FP) PO SCH (09:06)
[2023-02-14] MEDS: ASPIRIN 81 MG CHEWABLE TABLETS PO SCH (09:06)
[2023-02-14] MEDS: SEVELAMER CARBONATE 800 MG TAB (FP) PO SCH (09:07)
== END 2023-02-14 09:13 | disposition home or self-care (01) | DRG 772 ==
LOC: YASAS 21:04 → Y3E 01-31 05:09
PROVIDERS: ADMIT Allergy & Immunology; ATTEND Psychiatry & Neurology Pain Medicine
PROC: HZ42ZZZ Group Counseling for Substance Abuse Treatment, Cognitive-Behavioral (ICD-10-PCS; principal; 2023-01-31)
DX: F10.20 Alcohol dependence, uncomplicated (principal); F14.20 Cocaine dependence, uncomplicated; F12.20 Cannabis dependence, uncomplicated; F17.210 Nicotine dependence, cigarettes, uncomplicated; I25.10 Atherosclerotic heart disease of native coronary artery without angina pectoris; I13.10 Hypertensive heart and chronic kidney disease without heart failure, with stage 1 through stage 4 chronic kidney disease, or unspecified chronic kidney disease; N18.4 Chronic kidney disease, stage 4 (severe); E11.51 Type 2 diabetes mellitus with diabetic peripheral angiopathy without gangrene; Z79.4 Long term (current) use of insulin; Z95.1 Presence of aortocoronary bypass graft; Z95.5 Presence of coronary angioplasty implant and graft; Z87.19 Personal history of other diseases of the digestive system; Z89.411 Acquired absence of right great toe; Z89.421 Acquired absence of other right toe(s)
CPT/HCPCS: 36415; 80053; 80307; 81003; 82962; 85027; 86593; 86780; 86803; 87635

== ENCOUNTER 2023-04-15 11:26 | Inpatient (IN) | payer OTHER ==
[2023-04-15 11:52] VITALS: BMI 24.3
[2023-04-15] MEDS ORDERED: LOPERAMIDE HCL 2 MG CAPSULE PO PRN (13:15)
[2023-04-15] MEDS ORDERED: guaiFENesin 600 MG TABLET.ER (FP) PO PRN (13:15)
[2023-04-15] MEDS ORDERED: MAG HYDROX/AL HYDROX/SIMETH 30 ML UNIT-DOSE CUP PO PRN (13:15)
[2023-04-15] MEDS ORDERED: NALOXONE HCL 0.4 MG/ML VIAL IM PRN (13:15)
[2023-04-15] MEDS ORDERED: POLYETHYLENE GLYCOL (HEALTHYLAX) 3350 17 GM PACKET PO PRN (13:15)
[2023-04-15] MEDS ORDERED: IBUPROFEN 600 MG TABLET (FP) PO PRN (13:15)
[2023-04-15] MEDS ORDERED: IBUPROFEN 400 MG TABLET (FP) PO PRN (13:15)
[2023-04-15] MEDS ORDERED: BENZONATATE 200 MG CAPSULE PO PRN (13:15)
[2023-04-15] MEDS ORDERED: hydrOXYzine PAMOATE 25 MG CAPSULE (FP) PO PRN (13:15)
[2023-04-15] MEDS ORDERED: BENZOCAINE/MENTHOL (CHLORASEPTIC ) LOZENGE MM PRN (13:15)
[2023-04-15] MEDS ORDERED: NALOXONE HCL (KLOXXADO) 8 MG SPRAY NS PRN (13:15)
[2023-04-15] MEDS ORDERED: MAGNESIUM HYDROX 2400MG/30ML ORAL SUSPENSION 30 ML CUP PO PRN (13:15)
[2023-04-15] MEDS ORDERED: ACETAMINOPHEN 325 MG TABLET (FP) PO PRN (13:15)
[2023-04-15] MEDS ORDERED: PRENATAL VITAMINS W/ FOLIC ACID TABLET (FP) PO ONE (15:09)
[2023-04-15] MEDS: PRENATAL VITAMINS W/ FOLIC ACID TABLET (FP) PO SCH (15:13)
[2023-04-15] MEDS: FERROUS SO4 325 MG TABLET (FP) PO SCH (16:08)
[2023-04-15] MEDS: ERGOCALCIFEROL (VIT D2) 50,000 UNIT (1.25 MG) CAPSULE PO SCH (16:08)
[2023-04-15] MEDS: INSULIN (NOVOLOG) ASPART 100 UNITS/ML 10ML VIAL SQ SCH (16:54)
[2023-04-15] MEDS: LIPASE/PROTEASE/AMYLASE 6,000 UNIT CAPSULE PO SCH (17:30)
[2023-04-15] MEDS: MELATONIN 5 MG TABLETS PO SCH (21:18)
[2023-04-15] MEDS: THIAMINE HCL 100 MG TABLET (FP) PO SCH (21:18)
[2023-04-15] MEDS: SODIUM ZIRCONIUM CYCLOSILICATE (LOKELMA) 10 GM PACKET PO SCH (21:20)
[2023-04-15] MEDS: SEVELAMER CARBONATE 800 MG TAB (FP) PO SCH (21:20)
[2023-04-15] MEDS: INSULIN (LEVEMIR) 100 UNITS/ML UNITS SQ SCH (21:36)
[2023-04-16] MEDS: INSULIN (NOVOLOG) ASPART 100 UNITS/ML 10ML VIAL SQ SCH (07:41)
[2023-04-16] MEDS: LIPASE/PROTEASE/AMYLASE 6,000 UNIT CAPSULE PO SCH ×3 (07:41→17:01)
[2023-04-16] MEDS ORDERED: THIAMINE HCL 100 MG TABLET (FP) PO SCH (10:00)
[2023-04-16] MEDS: THIAMINE HCL 100 MG TABLET (FP) PO SCH ×2 (10:05→21:12)
[2023-04-16] MEDS: ASPIRIN 81 MG CHEWABLE TABLETS PO SCH (10:05)
[2023-04-16] MEDS: metoPROLOL SUCCINATE 25 MG TAB.SR.24H (FP) PO SCH (10:06)
[2023-04-16] MEDS: PANTOPRAZOLE 20 MG TABLET PO SCH (10:06)
[2023-04-16] MEDS: FUROSEMIDE 40 MG TABLET (FP) PO SCH (10:07)
[2023-04-16] MEDS: PRENATAL VITAMINS W/ FOLIC ACID TABLET (FP) PO SCH (10:07)
[2023-04-16] MEDS: FOLIC ACID 1 MG TABLET (FP) PO SCH (10:07)
[2023-04-16] MEDS: ASCORBIC ACID 500 MG TABLET (FP) PO SCH (10:08)
[2023-04-16] MEDS: SEVELAMER CARBONATE 800 MG TAB (FP) PO SCH ×2 (10:09→21:44)
[2023-04-16] MEDS: SODIUM ZIRCONIUM CYCLOSILICATE (LOKELMA) 10 GM PACKET PO SCH ×2 (10:10→21:12)
[2023-04-16] MEDS: NIFEdipine E.R. 30 MG TABLET PO SCH (10:40)
[2023-04-16 12:05] LABS: HEMATOCRIT 27.6 % (35.4-49); HEMOGLOBIN 8.7 GM/dL (11.7-16.9); MCH 25.8 pg (25.7-33.7); MCHC 31.7 g/dl (32.0-35.9); MEAN CELL VOLUME 81.6 fl (80-96); MEAN PLT VOLUME 8.7 fl (7.5-11.1); PLATELET COUNT 378 10^3/uL (134-434); RBC 3.39 M/mm3 (4.00-5.60); WHITE BLOOD COUNT 3.9 K/mm3 (4.0-10.0)
[2023-04-16 12:37] LABS: SYPHILIS W/ RPR CONF REACTIVE (NONREACTIVE)
[2023-04-16 13:16] LABS: POTASSIUM 3.7 mmol/L (3.5-5.1)
[2023-04-16 13:19] LABS: ALBUMIN 2.6 g/dl (3.4-5.0); BLOOD UREA NITROGEN 24.3 mg/dL (7-18); CALCIUM 7.7 mg/dL (8.5-10.1)
[2023-04-16 13:23] LABS: BILIRUBIN,TOTAL 0.2 mg/dL (0.2-1); CREATININE 2.5 mg/dL (0.55-1.3); TOT PROT 6.3 g/dl (6.4-8.2)
[2023-04-16 14:01] LABS: EPI CELLS 15 /uL (0-25.1); HYALINE CASTS 0 /uL (0-3.1); URINE APPEARANCE CLEAR; URINE BACTERIA 16 /uL (0-1359); URINE BILIRUBIN NEGATIVE (NEGATIVE); URINE COLOR YELLOW; URINE GLUCOSE (UA) NEGATIVE (NEGATIVE); URINE KETONE NEGATIVE (NEGATIVE); URINE LEUK ESTERASE 1+ (NEGATIVE); URINE NITRITE NEGATIVE (NEGATIVE); URINE PROTEIN 1+ (NEGATIVE); URINE RBC 4 /uL (0-23.9); URINE UROBILINOGEN 0.2 mg/dL (0.2-1.0); URINE WBC 32 /uL (0-25.8)
[2023-04-16] MEDS ORDERED: INSULIN ASPART SLIDING SCALE (NOVOLOG) 1 VIAL SQ SCH (16:30)
[2023-04-16] MEDS ORDERED: INSULIN (NOVOLOG) ASPART 100 UNITS/ML 10ML VIAL ONE (16:47)
[2023-04-16] MEDS: INSULIN ASPART SLIDING SCALE (NOVOLOG) 1 VIAL SQ SCH ×2 (17:01→21:46)
[2023-04-16] MEDS: INSULIN (LEVEMIR) 100 UNITS/ML UNITS SQ SCH (21:11)
[2023-04-16] MEDS: MELATONIN 5 MG TABLETS PO SCH (21:12)
[2023-04-17] MEDS: INSULIN ASPART SLIDING SCALE (NOVOLOG) 1 VIAL SQ SCH ×4 (06:33→21:45)
[2023-04-17] MEDS: LIPASE/PROTEASE/AMYLASE 6,000 UNIT CAPSULE PO SCH ×3 (07:05→18:23)
[2023-04-17] MEDS: PRENATAL VITAMINS W/ FOLIC ACID TABLET (FP) PO SCH (10:09)
[2023-04-17] MEDS: FOLIC ACID 1 MG TABLET (FP) PO SCH (10:11)
[2023-04-17] MEDS: ASCORBIC ACID 500 MG TABLET (FP) PO SCH (10:11)
[2023-04-17] MEDS: FERROUS SO4 325 MG TABLET (FP) PO SCH (10:11)
[2023-04-17] MEDS: ASPIRIN 81 MG CHEWABLE TABLETS PO SCH (10:11)
[2023-04-17] MEDS: FUROSEMIDE 40 MG TABLET (FP) PO SCH (10:11)
[2023-04-17] MEDS: metoPROLOL SUCCINATE 25 MG TAB.SR.24H (FP) PO SCH (10:11)
[2023-04-17] MEDS: THIAMINE HCL 100 MG TABLET (FP) PO SCH ×2 (10:11→21:31)
[2023-04-17] MEDS: NIFEdipine E.R. 30 MG TABLET PO SCH (10:11)
[2023-04-17] MEDS: PANTOPRAZOLE 20 MG TABLET PO SCH (10:11)
[2023-04-17] MEDS: SEVELAMER CARBONATE 800 MG TAB (FP) PO SCH ×2 (10:12→21:32)
[2023-04-17] MEDS: SODIUM ZIRCONIUM CYCLOSILICATE (LOKELMA) 10 GM PACKET PO SCH ×2 (10:12→21:31)
[2023-04-17] MEDS: SIMETHICONE 80 MG TAB.CHEW (FP) PO PRN (14:04)
[2023-04-17] MEDS ORDERED: INSULIN (NOVOLOG) ASPART 100 UNITS/ML 10ML VIAL ONE (16:39)
[2023-04-17] MEDS: MELATONIN 5 MG TABLETS PO SCH (21:31)
[2023-04-17] MEDS: INSULIN (LEVEMIR) 100 UNITS/ML UNITS SQ SCH (21:31)
[2023-04-17] MEDS ORDERED: INSULIN (LEVEMIR) 100 UNITS/ML UNITS SQ ONE (22:00)
[2023-04-18] MEDS: INSULIN ASPART SLIDING SCALE (NOVOLOG) 1 VIAL SQ SCH ×5 (06:35→21:40)
[2023-04-18] MEDS: LIPASE/PROTEASE/AMYLASE 6,000 UNIT CAPSULE PO SCH ×3 (07:23→16:45)
[2023-04-18] MEDS: ASPIRIN 81 MG CHEWABLE TABLETS PO SCH (09:56)
[2023-04-18] MEDS: FUROSEMIDE 40 MG TABLET (FP) PO SCH (09:56)
[2023-04-18] MEDS: FOLIC ACID 1 MG TABLET (FP) PO SCH (09:56)
[2023-04-18] MEDS: THIAMINE HCL 100 MG TABLET (FP) PO SCH ×2 (09:56→21:40)
[2023-04-18] MEDS: metoPROLOL SUCCINATE 25 MG TAB.SR.24H (FP) PO SCH (09:56)
[2023-04-18] MEDS: PRENATAL VITAMINS W/ FOLIC ACID TABLET (FP) PO SCH (09:56)
[2023-04-18] MEDS: PANTOPRAZOLE 20 MG TABLET PO SCH (09:56)
[2023-04-18] MEDS: SEVELAMER CARBONATE 800 MG TAB (FP) PO SCH ×2 (09:57→21:40)
[2023-04-18] MEDS: ASCORBIC ACID 500 MG TABLET (FP) PO SCH (09:57)
[2023-04-18] MEDS: NIFEdipine E.R. 30 MG TABLET PO SCH (09:57)
[2023-04-18] MEDS: SODIUM ZIRCONIUM CYCLOSILICATE (LOKELMA) 10 GM PACKET PO SCH ×2 (09:58→21:39)
[2023-04-18] MEDS: SIMETHICONE 80 MG TAB.CHEW (FP) PO PRN ×3 (13:11→21:39)
[2023-04-18] MEDS: MELATONIN 5 MG TABLETS PO SCH (21:39)
[2023-04-18] MEDS: INSULIN (LEVEMIR) 100 UNITS/ML UNITS SQ SCH (21:40)
[2023-04-19] MEDS: SIMETHICONE 80 MG TAB.CHEW (FP) PO PRN ×3 (06:08→18:30)
[2023-04-19] MEDS: INSULIN ASPART SLIDING SCALE (NOVOLOG) 1 VIAL SQ SCH ×4 (06:31→21:34)
[2023-04-19] MEDS: LIPASE/PROTEASE/AMYLASE 6,000 UNIT CAPSULE PO SCH ×3 (08:20→16:29)
[2023-04-19] MEDS: PANTOPRAZOLE 20 MG TABLET PO SCH (10:01)
[2023-04-19] MEDS: FERROUS SO4 325 MG TABLET (FP) PO SCH (10:01)
[2023-04-19] MEDS: FUROSEMIDE 40 MG TABLET (FP) PO SCH (10:01)
[2023-04-19] MEDS: FOLIC ACID 1 MG TABLET (FP) PO SCH (10:01)
[2023-04-19] MEDS: metoPROLOL SUCCINATE 25 MG TAB.SR.24H (FP) PO SCH (10:01)
[2023-04-19] MEDS: ASPIRIN 81 MG CHEWABLE TABLETS PO SCH (10:01)
[2023-04-19] MEDS: THIAMINE HCL 100 MG TABLET (FP) PO SCH ×2 (10:01→21:34)
[2023-04-19] MEDS: PRENATAL VITAMINS W/ FOLIC ACID TABLET (FP) PO SCH (10:01)
[2023-04-19] MEDS: NIFEdipine E.R. 30 MG TABLET PO SCH (10:02)
[2023-04-19] MEDS: ASCORBIC ACID 500 MG TABLET (FP) PO SCH (10:02)
[2023-04-19] MEDS: SODIUM ZIRCONIUM CYCLOSILICATE (LOKELMA) 10 GM PACKET PO SCH ×2 (10:03→21:33)
[2023-04-19] MEDS: SEVELAMER CARBONATE 800 MG TAB (FP) PO SCH ×2 (10:03→21:34)
[2023-04-19] MEDS: INSULIN (LEVEMIR) 100 UNITS/ML UNITS SQ SCH (21:33)
[2023-04-19] MEDS: MELATONIN 5 MG TABLETS PO SCH (21:33)
[2023-04-20] MEDS: INSULIN ASPART SLIDING SCALE (NOVOLOG) 1 VIAL SQ SCH ×4 (06:26→21:22)
[2023-04-20] MEDS: LIPASE/PROTEASE/AMYLASE 6,000 UNIT CAPSULE PO SCH ×3 (08:30→16:45)
[2023-04-20] MEDS: ASPIRIN 81 MG CHEWABLE TABLETS PO SCH (09:51)
[2023-04-20] MEDS: THIAMINE HCL 100 MG TABLET (FP) PO SCH ×2 (09:51→21:22)
[2023-04-20] MEDS: PRENATAL VITAMINS W/ FOLIC ACID TABLET (FP) PO SCH (09:51)
[2023-04-20] MEDS: FUROSEMIDE 40 MG TABLET (FP) PO SCH (09:52)
[2023-04-20] MEDS: FOLIC ACID 1 MG TABLET (FP) PO SCH (09:52)
[2023-04-20] MEDS: PANTOPRAZOLE 20 MG TABLET PO SCH (09:52)
[2023-04-20] MEDS: NIFEdipine E.R. 30 MG TABLET PO SCH (09:52)
[2023-04-20] MEDS: metoPROLOL SUCCINATE 25 MG TAB.SR.24H (FP) PO SCH (09:53)
[2023-04-20] MEDS: ASCORBIC ACID 500 MG TABLET (FP) PO SCH (09:54)
[2023-04-20] MEDS: SEVELAMER CARBONATE 800 MG TAB (FP) PO SCH ×2 (09:54→21:22)
[2023-04-20] MEDS: SODIUM ZIRCONIUM CYCLOSILICATE (LOKELMA) 10 GM PACKET PO SCH ×2 (09:55→21:22)
[2023-04-20] MEDS: SIMETHICONE 80 MG TAB.CHEW (FP) PO PRN ×2 (09:57→21:23)
[2023-04-20] MEDS ORDERED: INSULIN (NOVOLOG) ASPART 100 UNITS/ML 10ML VIAL ONE (16:29)
[2023-04-20] MEDS: INSULIN (LEVEMIR) 100 UNITS/ML UNITS SQ SCH (21:22)
[2023-04-20] MEDS: MELATONIN 5 MG TABLETS PO SCH (21:22)
[2023-04-21] MEDS: INSULIN ASPART SLIDING SCALE (NOVOLOG) 1 VIAL SQ SCH ×4 (07:15→21:50)
[2023-04-21] MEDS: LIPASE/PROTEASE/AMYLASE 6,000 UNIT CAPSULE PO SCH ×3 (07:17→17:40)
[2023-04-21] MEDS: THIAMINE HCL 100 MG TABLET (FP) PO SCH ×2 (09:56→21:25)
[2023-04-21] MEDS: FERROUS SO4 325 MG TABLET (FP) PO SCH (09:56)
[2023-04-21] MEDS: metoPROLOL SUCCINATE 25 MG TAB.SR.24H (FP) PO SCH (09:56)
[2023-04-21] MEDS: FUROSEMIDE 40 MG TABLET (FP) PO SCH (09:56)
[2023-04-21] MEDS: PRENATAL VITAMINS W/ FOLIC ACID TABLET (FP) PO SCH (09:56)
[2023-04-21] MEDS: ASPIRIN 81 MG CHEWABLE TABLETS PO SCH (09:56)
[2023-04-21] MEDS: FOLIC ACID 1 MG TABLET (FP) PO SCH (09:56)
[2023-04-21] MEDS: PANTOPRAZOLE 20 MG TABLET PO SCH (09:56)
[2023-04-21] MEDS: SEVELAMER CARBONATE 800 MG TAB (FP) PO SCH ×2 (09:57→21:25)
[2023-04-21] MEDS: NIFEdipine E.R. 30 MG TABLET PO SCH (09:57)
[2023-04-21] MEDS: SODIUM ZIRCONIUM CYCLOSILICATE (LOKELMA) 10 GM PACKET PO SCH ×2 (09:57→21:25)
[2023-04-21] MEDS: ASCORBIC ACID 500 MG TABLET (FP) PO SCH (09:57)
[2023-04-21] MEDS: SIMETHICONE 80 MG TAB.CHEW (FP) PO PRN ×2 (10:01→21:25)
[2023-04-21] MEDS: MELATONIN 5 MG TABLETS PO SCH (21:25)
[2023-04-22] MEDS: LIPASE/PROTEASE/AMYLASE 6,000 UNIT CAPSULE PO SCH ×3 (07:05→17:40)
[2023-04-22] MEDS: INSULIN ASPART SLIDING SCALE (NOVOLOG) 1 VIAL SQ SCH ×4 (07:52→21:32)
[2023-04-22] MEDS: ASPIRIN 81 MG CHEWABLE TABLETS PO SCH (09:41)
[2023-04-22] MEDS: PRENATAL VITAMINS W/ FOLIC ACID TABLET (FP) PO SCH (09:41)
[2023-04-22] MEDS: NIFEdipine E.R. 30 MG TABLET PO SCH (09:41)
[2023-04-22] MEDS: PANTOPRAZOLE 20 MG TABLET PO SCH (09:41)
[2023-04-22] MEDS: THIAMINE HCL 100 MG TABLET (FP) PO SCH ×2 (09:41→21:32)
[2023-04-22] MEDS: FUROSEMIDE 40 MG TABLET (FP) PO SCH (09:41)
[2023-04-22] MEDS: FOLIC ACID 1 MG TABLET (FP) PO SCH (09:41)
[2023-04-22] MEDS: SODIUM ZIRCONIUM CYCLOSILICATE (LOKELMA) 10 GM PACKET PO SCH ×2 (09:42→21:32)
[2023-04-22] MEDS: metoPROLOL SUCCINATE 25 MG TAB.SR.24H (FP) PO SCH (09:42)
[2023-04-22] MEDS: ASCORBIC ACID 500 MG TABLET (FP) PO SCH (09:43)
[2023-04-22] MEDS: SIMETHICONE 80 MG TAB.CHEW (FP) PO PRN (09:43)
[2023-04-22] MEDS: SEVELAMER CARBONATE 800 MG TAB (FP) PO SCH ×2 (09:43→21:32)
[2023-04-22] MEDS: ERGOCALCIFEROL (VIT D2) 50,000 UNIT (1.25 MG) CAPSULE PO SCH (10:31)
[2023-04-22] MEDS: MELATONIN 5 MG TABLETS PO SCH (21:31)
[2023-04-23] MEDS: INSULIN ASPART SLIDING SCALE (NOVOLOG) 1 VIAL SQ SCH ×4 (06:10→21:31)
[2023-04-23] MEDS: LIPASE/PROTEASE/AMYLASE 6,000 UNIT CAPSULE PO SCH ×3 (07:25→17:48)
[2023-04-23] MEDS: metoPROLOL SUCCINATE 25 MG TAB.SR.24H (FP) PO SCH (10:06)
[2023-04-23] MEDS: ASPIRIN 81 MG CHEWABLE TABLETS PO SCH (10:06)
[2023-04-23] MEDS: FERROUS SO4 325 MG TABLET (FP) PO SCH (10:06)
[2023-04-23] MEDS: FOLIC ACID 1 MG TABLET (FP) PO SCH (10:06)
[2023-04-23] MEDS: PANTOPRAZOLE 20 MG TABLET PO SCH (10:06)
[2023-04-23] MEDS: FUROSEMIDE 40 MG TABLET (FP) PO SCH (10:06)
[2023-04-23] MEDS: PRENATAL VITAMINS W/ FOLIC ACID TABLET (FP) PO SCH (10:07)
[2023-04-23] MEDS: SEVELAMER CARBONATE 800 MG TAB (FP) PO SCH ×2 (10:07→21:32)
[2023-04-23] MEDS: ASCORBIC ACID 500 MG TABLET (FP) PO SCH (10:07)
[2023-04-23] MEDS: NIFEdipine E.R. 30 MG TABLET PO SCH (10:07)
[2023-04-23] MEDS: THIAMINE HCL 100 MG TABLET (FP) PO SCH ×2 (10:09→21:31)
[2023-04-23] MEDS: SIMETHICONE 80 MG TAB.CHEW (FP) PO PRN (10:10)
[2023-04-23] MEDS: SODIUM ZIRCONIUM CYCLOSILICATE (LOKELMA) 10 GM PACKET PO SCH ×2 (10:56→21:34)
[2023-04-23] MEDS: MAG HYDROX/AL HYDROX/SIMETH 30 ML UNIT-DOSE CUP PO PRN ×2 (14:27→21:33)
[2023-04-23] MEDS: MELATONIN 5 MG TABLETS PO SCH (21:33)
[2023-04-24] MEDS: INSULIN ASPART SLIDING SCALE (NOVOLOG) 1 VIAL SQ SCH ×4 (06:19→21:38)
[2023-04-24] MEDS: LIPASE/PROTEASE/AMYLASE 6,000 UNIT CAPSULE PO SCH ×3 (07:50→17:07)
[2023-04-24] MEDS: ASPIRIN 81 MG CHEWABLE TABLETS PO SCH (10:07)
[2023-04-24] MEDS: PANTOPRAZOLE 20 MG TABLET PO SCH (10:07)
[2023-04-24] MEDS: PRENATAL VITAMINS W/ FOLIC ACID TABLET (FP) PO SCH (10:07)
[2023-04-24] MEDS: THIAMINE HCL 100 MG TABLET (FP) PO SCH ×2 (10:07→21:33)
[2023-04-24] MEDS: metoPROLOL SUCCINATE 25 MG TAB.SR.24H (FP) PO SCH (10:07)
[2023-04-24] MEDS: SODIUM ZIRCONIUM CYCLOSILICATE (LOKELMA) 10 GM PACKET PO SCH ×2 (10:08→21:34)
[2023-04-24] MEDS: FUROSEMIDE 40 MG TABLET (FP) PO SCH (10:08)
[2023-04-24] MEDS: NIFEdipine E.R. 30 MG TABLET PO SCH (10:08)
[2023-04-24] MEDS: FOLIC ACID 1 MG TABLET (FP) PO SCH (10:08)
[2023-04-24] MEDS: SEVELAMER CARBONATE 800 MG TAB (FP) PO SCH ×2 (10:09→21:34)
[2023-04-24] MEDS: ASCORBIC ACID 500 MG TABLET (FP) PO SCH (10:09)
[2023-04-24] MEDS: MAG HYDROX/AL HYDROX/SIMETH 30 ML UNIT-DOSE CUP PO PRN ×2 (10:12→21:37)
[2023-04-24] MEDS: MELATONIN 5 MG TABLETS PO SCH (21:33)
[2023-04-25] MEDS: INSULIN ASPART SLIDING SCALE (NOVOLOG) 1 VIAL SQ SCH ×4 (06:10→21:26)
[2023-04-25] MEDS: LIPASE/PROTEASE/AMYLASE 6,000 UNIT CAPSULE PO SCH ×3 (07:45→17:18)
[2023-04-25] MEDS: FUROSEMIDE 40 MG TABLET (FP) PO SCH (09:49)
[2023-04-25] MEDS: PANTOPRAZOLE 20 MG TABLET PO SCH (09:49)
[2023-04-25] MEDS: metoPROLOL SUCCINATE 25 MG TAB.SR.24H (FP) PO SCH (09:49)
[2023-04-25] MEDS: PRENATAL VITAMINS W/ FOLIC ACID TABLET (FP) PO SCH (09:49)
[2023-04-25] MEDS: FOLIC ACID 1 MG TABLET (FP) PO SCH (09:49)
[2023-04-25] MEDS: ASPIRIN 81 MG CHEWABLE TABLETS PO SCH (09:49)
[2023-04-25] MEDS: FERROUS SO4 325 MG TABLET (FP) PO SCH (09:49)
[2023-04-25] MEDS: THIAMINE HCL 100 MG TABLET (FP) PO SCH ×2 (09:50→21:20)
[2023-04-25] MEDS: ASCORBIC ACID 500 MG TABLET (FP) PO SCH (09:50)
[2023-04-25] MEDS: SODIUM ZIRCONIUM CYCLOSILICATE (LOKELMA) 10 GM PACKET PO SCH ×2 (09:51→21:20)
[2023-04-25] MEDS: LIDOCAINE 4% PATCH TP SCH (09:51)
[2023-04-25] MEDS: SEVELAMER CARBONATE 800 MG TAB (FP) PO SCH ×2 (09:52→21:20)
[2023-04-25] MEDS: NIFEdipine E.R. 30 MG TABLET PO SCH (09:52)
[2023-04-25] MEDS: MAG HYDROX/AL HYDROX/SIMETH 30 ML UNIT-DOSE CUP PO PRN ×2 (09:57→21:23)
[2023-04-25] MEDS: MELATONIN 5 MG TABLETS PO SCH (21:20)
[2023-04-25] MEDS: METHYL SALICYLATE/MENTHOL OINT 30 GM TUBE TP SCH (21:21)
[2023-04-25] MEDS: LIDOCAINE PATCH REMOVAL MC SCH (21:22)
[2023-04-26] MEDS: INSULIN ASPART SLIDING SCALE (NOVOLOG) 1 VIAL SQ SCH ×4 (06:22→21:21)
[2023-04-26] MEDS: LIPASE/PROTEASE/AMYLASE 6,000 UNIT CAPSULE PO SCH ×3 (07:07→16:50)
[2023-04-26] MEDS: PRENATAL VITAMINS W/ FOLIC ACID TABLET (FP) PO SCH (09:46)
[2023-04-26] MEDS: ASPIRIN 81 MG CHEWABLE TABLETS PO SCH (09:47)
[2023-04-26] MEDS: FOLIC ACID 1 MG TABLET (FP) PO SCH (09:47)
[2023-04-26] MEDS: PANTOPRAZOLE 20 MG TABLET PO SCH (09:47)
[2023-04-26] MEDS: FUROSEMIDE 40 MG TABLET (FP) PO SCH (09:47)
[2023-04-26] MEDS: THIAMINE HCL 100 MG TABLET (FP) PO SCH ×2 (09:47→21:16)
[2023-04-26] MEDS: metoPROLOL SUCCINATE 25 MG TAB.SR.24H (FP) PO SCH (09:47)
[2023-04-26] MEDS: NIFEdipine E.R. 30 MG TABLET PO SCH (09:48)
[2023-04-26] MEDS: SODIUM ZIRCONIUM CYCLOSILICATE (LOKELMA) 10 GM PACKET PO SCH ×2 (09:49→21:16)
[2023-04-26] MEDS: LIDOCAINE 4% PATCH TP SCH (09:49)
[2023-04-26] MEDS: SEVELAMER CARBONATE 800 MG TAB (FP) PO SCH ×2 (09:49→21:16)
[2023-04-26] MEDS: ASCORBIC ACID 500 MG TABLET (FP) PO SCH (09:50)
[2023-04-26] MEDS: MAG HYDROX/AL HYDROX/SIMETH 30 ML UNIT-DOSE CUP PO PRN ×2 (09:52→21:19)
[2023-04-26] MEDS ORDERED: INSULIN (NOVOLOG) ASPART 100 UNITS/ML 10ML VIAL ONE (16:46)
[2023-04-26] MEDS: LIDOCAINE PATCH REMOVAL MC SCH (21:16)
[2023-04-26] MEDS: METHYL SALICYLATE/MENTHOL OINT 30 GM TUBE TP SCH (21:16)
[2023-04-26] MEDS: MELATONIN 5 MG TABLETS PO SCH (21:16)
[2023-04-27] MEDS: LIPASE/PROTEASE/AMYLASE 6,000 UNIT CAPSULE PO SCH ×3 (07:11→16:37)
[2023-04-27] MEDS: INSULIN ASPART SLIDING SCALE (NOVOLOG) 1 VIAL SQ SCH ×4 (07:12→21:27)
[2023-04-27] MEDS: ASCORBIC ACID 500 MG TABLET (FP) PO SCH (09:53)
[2023-04-27] MEDS: ASPIRIN 81 MG CHEWABLE TABLETS PO SCH (09:53)
[2023-04-27] MEDS: FOLIC ACID 1 MG TABLET (FP) PO SCH (09:53)
[2023-04-27] MEDS: metoPROLOL SUCCINATE 25 MG TAB.SR.24H (FP) PO SCH (09:53)
[2023-04-27] MEDS: THIAMINE HCL 100 MG TABLET (FP) PO SCH ×2 (09:53→21:21)
[2023-04-27] MEDS: FUROSEMIDE 40 MG TABLET (FP) PO SCH (09:53)
[2023-04-27] MEDS: NIFEdipine E.R. 30 MG TABLET PO SCH (09:53)
[2023-04-27] MEDS: PANTOPRAZOLE 20 MG TABLET PO SCH (09:53)
[2023-04-27] MEDS: FERROUS SO4 325 MG TABLET (FP) PO SCH (09:53)
[2023-04-27] MEDS: SEVELAMER CARBONATE 800 MG TAB (FP) PO SCH ×2 (09:54→21:22)
[2023-04-27] MEDS: SODIUM ZIRCONIUM CYCLOSILICATE (LOKELMA) 10 GM PACKET PO SCH ×2 (09:56→21:21)
[2023-04-27] MEDS: PRENATAL VITAMINS W/ FOLIC ACID TABLET (FP) PO SCH (09:57)
[2023-04-27] MEDS: LIDOCAINE 4% PATCH TP SCH (09:57)
[2023-04-27] MEDS: MAG HYDROX/AL HYDROX/SIMETH 30 ML UNIT-DOSE CUP PO PRN ×2 (09:58→21:25)
[2023-04-27] MEDS ORDERED: INSULIN (NOVOLOG) ASPART 100 UNITS/ML 10ML VIAL ONE (16:18)
[2023-04-27] MEDS: MELATONIN 5 MG TABLETS PO SCH (21:21)
[2023-04-27] MEDS: LIDOCAINE PATCH REMOVAL MC SCH (21:22)
[2023-04-27] MEDS: METHYL SALICYLATE/MENTHOL OINT 30 GM TUBE TP SCH (21:22)
[2023-04-28] MEDS: INSULIN ASPART SLIDING SCALE (NOVOLOG) 1 VIAL SQ SCH ×4 (07:02→21:25)
[2023-04-28] MEDS: LIPASE/PROTEASE/AMYLASE 6,000 UNIT CAPSULE PO SCH ×3 (07:36→16:42)
[2023-04-28] MEDS: FOLIC ACID 1 MG TABLET (FP) PO SCH (09:39)
[2023-04-28] MEDS: metoPROLOL SUCCINATE 25 MG TAB.SR.24H (FP) PO SCH (09:39)
[2023-04-28] MEDS: FUROSEMIDE 40 MG TABLET (FP) PO SCH (09:39)
[2023-04-28] MEDS: PRENATAL VITAMINS W/ FOLIC ACID TABLET (FP) PO SCH (09:39)
[2023-04-28] MEDS: PANTOPRAZOLE 20 MG TABLET PO SCH (09:40)
[2023-04-28] MEDS: THIAMINE HCL 100 MG TABLET (FP) PO SCH ×2 (09:40→21:24)
[2023-04-28] MEDS: LIDOCAINE 4% PATCH TP SCH (09:40)
[2023-04-28] MEDS: SEVELAMER CARBONATE 800 MG TAB (FP) PO SCH ×2 (09:40→21:43)
[2023-04-28] MEDS: ASCORBIC ACID 500 MG TABLET (FP) PO SCH (09:40)
[2023-04-28] MEDS: NIFEdipine E.R. 30 MG TABLET PO SCH (09:41)
[2023-04-28] MEDS: SODIUM ZIRCONIUM CYCLOSILICATE (LOKELMA) 10 GM PACKET PO SCH ×2 (09:42→21:24)
[2023-04-28] MEDS: MAG HYDROX/AL HYDROX/SIMETH 30 ML UNIT-DOSE CUP PO PRN (09:43)
[2023-04-28] MEDS: ASPIRIN 81 MG CHEWABLE TABLETS PO SCH (09:44)
[2023-04-28] MEDS: MELATONIN 5 MG TABLETS PO SCH (21:24)
[2023-04-28] MEDS: METHYL SALICYLATE/MENTHOL OINT 30 GM TUBE TP SCH (21:25)
[2023-04-28] MEDS: LIDOCAINE PATCH REMOVAL MC SCH (21:25)
[2023-04-28 23:28] VITALS: RESP 18
[2023-04-29 06:24] VITALS: BP 113/60; PULSE 86; TEMP 97.8
[2023-04-29] MEDS: INSULIN ASPART SLIDING SCALE (NOVOLOG) 1 VIAL SQ SCH (06:27)
[2023-04-29] MEDS: LIPASE/PROTEASE/AMYLASE 6,000 UNIT CAPSULE PO SCH (07:55)
[2023-04-29] MEDS: THIAMINE HCL 100 MG TABLET (FP) PO SCH (09:26)
[2023-04-29] MEDS: PRENATAL VITAMINS W/ FOLIC ACID TABLET (FP) PO SCH (09:26)
[2023-04-29] MEDS: FUROSEMIDE 40 MG TABLET (FP) PO SCH (09:27)
[2023-04-29] MEDS: PANTOPRAZOLE 20 MG TABLET PO SCH (09:27)
[2023-04-29] MEDS: FOLIC ACID 1 MG TABLET (FP) PO SCH (09:27)
[2023-04-29] MEDS: SEVELAMER CARBONATE 800 MG TAB (FP) PO SCH (09:27)
[2023-04-29] MEDS: metoPROLOL SUCCINATE 25 MG TAB.SR.24H (FP) PO SCH (09:27)
[2023-04-29] MEDS: ASCORBIC ACID 500 MG TABLET (FP) PO SCH (09:27)
[2023-04-29] MEDS: FERROUS SO4 325 MG TABLET (FP) PO SCH (09:27)
[2023-04-29] MEDS: ASPIRIN 81 MG CHEWABLE TABLETS PO SCH (09:27)
[2023-04-29] MEDS: LIDOCAINE 4% PATCH TP SCH (09:27)
[2023-04-29] MEDS: NIFEdipine E.R. 30 MG TABLET PO SCH (09:28)
[2023-04-29] MEDS: SODIUM ZIRCONIUM CYCLOSILICATE (LOKELMA) 10 GM PACKET PO SCH (09:28)
[2023-04-29] MEDS: ERGOCALCIFEROL (VIT D2) 50,000 UNIT (1.25 MG) CAPSULE PO SCH (09:28)
[2023-04-29] MEDS: MAG HYDROX/AL HYDROX/SIMETH 30 ML UNIT-DOSE CUP PO PRN (09:32)
== END 2023-04-29 10:27 | disposition home or self-care (01) | DRG 772 ==
LOC: YASAS 11:26 → Y5N 14:45
PROVIDERS: ADMIT Allergy & Immunology; ATTEND Psychiatry & Neurology Pain Medicine
PROC: HZ42ZZZ Group Counseling for Substance Abuse Treatment, Cognitive-Behavioral (ICD-10-PCS; principal; 2023-04-15)
DX: F10.20 Alcohol dependence, uncomplicated (principal); F14.10 Cocaine abuse, uncomplicated; F12.20 Cannabis dependence, uncomplicated; F17.210 Nicotine dependence, cigarettes, uncomplicated; E72.20 Disorder of urea cycle metabolism, unspecified; E78.2 Mixed hyperlipidemia; I25.10 Atherosclerotic heart disease of native coronary artery without angina pectoris; I12.9 Hypertensive chronic kidney disease with stage 1 through stage 4 chronic kidney disease, or unspecified chronic kidney disease; E11.22 Type 2 diabetes mellitus with diabetic chronic kidney disease; N18.4 Chronic kidney disease, stage 4 (severe); E11.9 Type 2 diabetes mellitus without complications; Z79.4 Long term (current) use of insulin; Z95.1 Presence of aortocoronary bypass graft; Z95.5 Presence of coronary angioplasty implant and graft; Z89.411 Acquired absence of right great toe; Z89.421 Acquired absence of other right toe(s); Z88.8 Allergy status to other drugs, medicaments and biological substances; Z91.011 Allergy to milk products
CPT/HCPCS: 36415; 80053; 80307; 81003; 82140; 82962; 85027; 86593; 86780; 86803; 87635; 87811

== ENCOUNTER 2023-12-29 08:25 | Inpatient (IN) | payer OTHER ==
[2023-12-29 09:05] VITALS: BMI 20.3
[2023-12-29] MEDS ORDERED: guaiFENesin 600 MG TABLET.ER (FP) PO PRN (09:41)
[2023-12-29] MEDS ORDERED: LOPERAMIDE HCL 2 MG CAPSULE PO PRN (09:41)
[2023-12-29] MEDS ORDERED: BISMUTH SUBSALICYLATE 262 MG/15 ML BTL PO PRN (09:41)
[2023-12-29] MEDS ORDERED: ACETAMINOPHEN 325 MG TABLET (FP) PO PRN (09:41)
[2023-12-29] MEDS ORDERED: NICOTINE POLACRILEX 2 MG GUM BUC PRN (09:41)
[2023-12-29] MEDS ORDERED: ONDANSETRON *ODT* 4 MG TABLET SL PRN (09:41)
[2023-12-29] MEDS ORDERED: POLYETHYLENE GLYCOL (HEALTHYLAX) 3350 17 GM PACKET PO PRN (09:41)
[2023-12-29] MEDS ORDERED: MAGNESIUM HYDROX 2400MG/30ML ORAL SUSPENSION 30 ML CUP PO PRN (09:41)
[2023-12-29] MEDS ORDERED: NALOXONE HCL 0.4 MG/ML VIAL IM PRN (09:41)
[2023-12-29] MEDS ORDERED: BENZOCAINE/MENTHOL (CHLORASEPTIC ) LOZENGE MM PRN (09:41)
[2023-12-29] MEDS ORDERED: IBUPROFEN 400 MG TABLET (FP) PO PRN (09:41)
[2023-12-29] MEDS ORDERED: DICYCLOMINE HCL 10 MG CAPSULE PO PRN (09:41)
[2023-12-29] MEDS ORDERED: IBUPROFEN 600 MG TABLET (FP) PO PRN (09:41)
[2023-12-29] MEDS ORDERED: NALOXONE (NARCAN) HCL 4 MG/0.1 ML SPRAY NS PRN (09:41)
[2023-12-29] MEDS ORDERED: BENZONATATE 200 MG CAPSULE PO PRN (09:41)
[2023-12-29] MEDS ORDERED: PRENATAL VITAMINS W/ FOLIC ACID TABLET (FP) PO ONE (10:03)
[2023-12-29] MEDS: PRENATAL VITAMINS W/ FOLIC ACID TABLET (FP) PO SCH (10:05)
[2023-12-29] MEDS: NICOTINE 14 MG/24 HOURS TOPICAL PATCH TD SCH (10:05)
[2023-12-29] MEDS: METOPROLOL TARTRATE 25 MG TABLET (FP) PO SCH (11:59)
[2023-12-29] MEDS: levETIRAcetam 500 MG TABLET (FP) PO SCH (12:00)
[2023-12-29] MEDS: LIPASE/PROTEASE/AMYLASE 36,000 UNIT CAPSULE PO SCH (12:00)
[2023-12-29] MEDS: SEVELAMER CARBONATE 800 MG TAB (FP) PO SCH (13:56)
[2023-12-29] MEDS: chlordiazePOXIDE HCL 25 MG CAPSULE PO PRN (17:26)
[2023-12-29] MEDS: chlordiazePOXIDE HCL 25 MG CAPSULE PO SCH (17:28)
[2023-12-29] MEDS: THIAMINE 100 MG TABLET PO SCH (22:27)
[2023-12-29] MEDS: MELATONIN 5 MG TABLETS PO SCH (22:36)
[2023-12-30] MEDS: hydrOXYzine PAMOATE 25 MG CAPSULE (FP) PO PRN (09:24)
[2023-12-30] MEDS: METHOCARBAMOL 500 MG TABLET PO PRN (09:24)
[2023-12-30] MEDS: MAG HYDROX/AL HYDROX/SIMETH 30 ML UNIT-DOSE CUP PO PRN (11:26)
[2023-12-30 13:46] LABS: HEMATOCRIT 24.3 % (35.4-49); HEMOGLOBIN 7.5 GM/dL (11.7-16.9); MCH 24.8 pg (25.7-33.7); MCHC 31.1 g/dl (32.0-35.9); MEAN CELL VOLUME 79.8 fl (80-96); MEAN PLT VOLUME 8.9 fl (7.5-11.1); PLATELET COUNT 316 10^3/uL (134-434); RBC 3.04 M/mm3 (4.00-5.60); RDW 17.4 % (11.9-15.9); WHITE BLOOD COUNT 5.3 K/mm3 (4.0-10.0)
[2023-12-30 13:58] LABS: POTASSIUM 5.1 mmol/L (3.5-5.1)
[2023-12-30 14:13] LABS: ALBUMIN 2.2 g/dl (3.4-5.0); CALCIUM 8.1 mg/dL (8.5-10.1)
[2023-12-30 14:14] LABS: BLOOD UREA NITROGEN 30.4 mg/dL (7-18)
[2023-12-30 14:17] LABS: CREATININE 2.6 mg/dL (0.55-1.3)
[2023-12-30 14:18] LABS: TOT PROT 5.6 g/dl (6.4-8.2)
[2023-12-30 14:19] LABS: BILIRUBIN,TOTAL 0.2 mg/dL (0.2-1)
[2023-12-30] MEDS: PANTOPRAZOLE 20 MG TABLET PO SCH (15:38)
[2023-12-30] MEDS: INSULIN ASPART SLIDING SCALE (NOVOLOG) 1 VIAL SQ SCH (22:35)
[2023-12-30] MEDS ORDERED: INSULIN (NOVOLOG) ASPART 100 UNITS/ML 10ML VIAL ONE (22:38)
[2023-12-31] MEDS: chlordiazePOXIDE HCL 25 MG CAPSULE PO SCH (05:19)
[2023-12-31] MEDS ORDERED: INSULIN (NOVOLOG) ASPART 100 UNITS/ML 10ML VIAL ONE ×2 (11:43→21:18)
[2023-12-31 12:03] LABS: HEMATOCRIT 27.8 % (35.4-49); HEMOGLOBIN 8.7 GM/dL (11.7-16.9); MCH 24.9 pg (25.7-33.7); MCHC 31.1 g/dl (32.0-35.9); MEAN CELL VOLUME 80.2 fl (80-96); MEAN PLT VOLUME 8.5 fl (7.5-11.1); PLATELET COUNT 338 10^3/uL (134-434); RBC 3.47 M/mm3 (4.00-5.60); RDW 17.3 % (11.9-15.9)
[2023-12-31 12:09] LABS: POTASSIUM 4.6 mmol/L (3.5-5.1)
[2023-12-31 12:14] LABS: CALCIUM 7.8 mg/dL (8.5-10.1)
[2023-12-31 12:15] LABS: ALBUMIN 2.3 g/dl (3.4-5.0); BLOOD UREA NITROGEN 29.5 mg/dL (7-18)
[2023-12-31 12:18] LABS: CREATININE 2.6 mg/dL (0.55-1.3)
[2023-12-31 12:19] LABS: BILIRUBIN,TOTAL 0.2 mg/dL (0.2-1)
[2023-12-31 12:20] LABS: TOT PROT 5.8 g/dl (6.4-8.2)
[2023-12-31] MEDS: FERROUS SO4 325 MG TABLET (FP) PO SCH (21:20)
[2023-12-31] MEDS: INSULIN (LEVEMIR) 100 UNITS/ML UNITS SQ SCH (21:31)
[2024-01-01] MEDS ORDERED: chlordiazePOXIDE HCL 10 MG CAPSULE PO PRN
[2024-01-01] MEDS: chlordiazePOXIDE HCL 10 MG CAPSULE PO SCH (05:25)
[2024-01-02] MEDS: chlordiazePOXIDE HCL 10 MG CAPSULE PO SCH (05:38)
[2024-01-02 08:31] VITALS: RESP 18
[2024-01-02 12:35] VITALS: BP 159/80; PULSE 91; TEMP 97.6
[2024-01-02] MEDS: NALOXONE (NYS OPIOID OVERDOSE PROGRAM) 4 MG/0.1 ML SPRAY NS ONE (13:17)
[2024-01-03] MEDS ORDERED: chlordiazePOXIDE HCL 10 MG CAPSULE PO ONE (05:00)
== END 2024-01-02 13:21 | disposition home or self-care (01) | DRG 774 ==
LOC: YASAS 08:25 → Y6N 10:02
PROVIDERS: ADMIT Allergy & Immunology; ATTEND Surgery
PROC: HZ2ZZZZ Detoxification Services for Substance Abuse Treatment (ICD-10-PCS; principal; 2023-12-29)
DX: F10.230 Alcohol dependence with withdrawal, uncomplicated (principal); F14.20 Cocaine dependence, uncomplicated; F17.210 Nicotine dependence, cigarettes, uncomplicated; D64.9 Anemia, unspecified; G40.909 Epilepsy, unspecified, not intractable, without status epilepticus; I25.10 Atherosclerotic heart disease of native coronary artery without angina pectoris; I13.0 Hypertensive heart and chronic kidney disease with heart failure and stage 1 through stage 4 chronic kidney disease, or unspecified chronic kidney disease; N18.4 Chronic kidney disease, stage 4 (severe); I50.9 Heart failure, unspecified; E11.51 Type 2 diabetes mellitus with diabetic peripheral angiopathy without gangrene; Z79.4 Long term (current) use of insulin; K86.0 Alcohol-induced chronic pancreatitis; E78.5 Hyperlipidemia, unspecified; Z88.8 Allergy status to other drugs, medicaments and biological substances
CPT/HCPCS: 36415; 80053; 80305; 80307; 82607; 82746; 82962; 83540; 83550; 85027; 86780

== ENCOUNTER 2024-01-30 14:40 | Inpatient (IN) | payer OTHER ==
[2024-01-30 15:11] VITALS: BMI 21.6
[2024-01-30] MEDS ORDERED: BENZOCAINE/MENTHOL (CHLORASEPTIC ) LOZENGE MM PRN (15:42)
[2024-01-30] MEDS ORDERED: DICYCLOMINE HCL 10 MG CAPSULE PO PRN (15:42)
[2024-01-30] MEDS ORDERED: POLYETHYLENE GLYCOL (HEALTHYLAX) 3350 17 GM PACKET PO PRN (15:42)
[2024-01-30] MEDS ORDERED: LOPERAMIDE HCL 2 MG CAPSULE PO PRN (15:42)
[2024-01-30] MEDS ORDERED: IBUPROFEN 400 MG TABLET (FP) PO PRN (15:42)
[2024-01-30] MEDS ORDERED: NICOTINE POLACRILEX 4 MG GUM BUC PRN (15:42)
[2024-01-30] MEDS ORDERED: METHOCARBAMOL 500 MG TABLET PO PRN (15:42)
[2024-01-30] MEDS ORDERED: MAGNESIUM HYDROX 2400MG/30ML ORAL SUSPENSION 30 ML CUP PO PRN (15:42)
[2024-01-30] MEDS ORDERED: IBUPROFEN 600 MG TABLET (FP) PO PRN (15:42)
[2024-01-30] MEDS ORDERED: guaiFENesin 600 MG TABLET.ER (FP) PO PRN (15:42)
[2024-01-30] MEDS ORDERED: hydrOXYzine PAMOATE 25 MG CAPSULE (FP) PO PRN (15:42)
[2024-01-30] MEDS ORDERED: NALOXONE (NYS OPIOID OVERDOSE PROGRAM) 4 MG/0.1 ML SPRAY NS PRN (15:42)
[2024-01-30] MEDS ORDERED: NALOXONE (NARCAN) HCL 4 MG/0.1 ML SPRAY NS PRN (15:42)
[2024-01-30] MEDS ORDERED: chlordiazePOXIDE HCL 25 MG CAPSULE PO PRN (15:42)
[2024-01-30] MEDS ORDERED: BENZONATATE 200 MG CAPSULE PO PRN (15:42)
[2024-01-30] MEDS ORDERED: PRENATAL VITAMINS W/ FOLIC ACID TABLET (FP) PO ONE (16:29)
[2024-01-30] MEDS ORDERED: levETIRAcetam 500 MG TABLET (FP) PO ONE (16:29)
[2024-01-30] MEDS: levETIRAcetam 500 MG TABLET (FP) PO SCH (16:42)
[2024-01-30] MEDS: PRENATAL VITAMINS W/ FOLIC ACID TABLET (FP) PO SCH (16:42)
[2024-01-30] MEDS: LIPASE/PROTEASE/AMYLASE 36,000 UNIT CAPSULE PO SCH (16:43)
[2024-01-30] MEDS: INSULIN ASPART SLIDING SCALE (NOVOLOG) 1 VIAL SQ SCH (16:45)
[2024-01-30] MEDS ORDERED: PATIENT'S OWN MEDICATION (NON-FORMULARY) (Insulin Glargine,Hum.Rec.Anlog 100 UNITS/ML Ins) SQ SCH (22:00)
[2024-01-30] MEDS: INSULIN (LEVEMIR) 100 UNITS/ML UNITS SQ SCH (22:52)
[2024-01-30] MEDS: MELATONIN 5 MG TABLETS PO SCH (22:53)
[2024-01-30] MEDS: SEVELAMER CARBONATE 800 MG TAB (FP) PO SCH (22:53)
[2024-01-30] MEDS: THIAMINE 100 MG TABLET PO SCH (22:53)
[2024-01-30] MEDS: chlordiazePOXIDE HCL 25 MG CAPSULE PO SCH (22:54)
[2024-01-31] MEDS: MAG HYDROX/AL HYDROX/SIMETH 30 ML UNIT-DOSE CUP PO PRN (15:22)
[2024-01-31] MEDS: ONDANSETRON *ODT* 4 MG TABLET SL PRN (20:21)
[2024-01-31] MEDS: levETIRAcetam 500 MG TABLET (FP) PO SCH (21:23)
[2024-02-01] MEDS: chlordiazePOXIDE HCL 25 MG CAPSULE PO SCH (05:54)
[2024-02-01] MEDS: BISMUTH SUBSALICYLATE 524 MG/30 ML PO PRN (10:26)
[2024-02-02] MEDS ORDERED: chlordiazePOXIDE HCL 10 MG CAPSULE PO PRN
[2024-02-02] MEDS: chlordiazePOXIDE HCL 10 MG CAPSULE PO SCH (05:51)
[2024-02-02] MEDS ORDERED: INSULIN ASPART SLIDING SCALE (NOVOLOG) 1 VIAL SQ ONE (05:57)
[2024-02-02] MEDS: ACETAMINOPHEN 325 MG TABLET (FP) PO PRN (09:14)
[2024-02-02] MEDS: METOPROLOL TARTRATE 25 MG TABLET (FP) PO SCH (10:20)
[2024-02-02] MEDS: TRIMETHOBENZAMIDE HCL 200MG/2ML INJ IM ONE (17:57)
[2024-02-02 20:27] VITALS: RESP 16
[2024-02-02 22:13] VITALS: BP 94/55; PULSE 90; TEMP 98.4
[2024-02-02] MEDS: INSULIN (NOVOLOG) ASPART 100 UNITS/ML 10ML VIAL SQ ONE (22:22)
[2024-02-03] MEDS: chlordiazePOXIDE HCL 10 MG CAPSULE PO SCH (06:11)
[2024-02-04] MEDS ORDERED: chlordiazePOXIDE HCL 10 MG CAPSULE PO ONE (05:00)
== END 2024-02-03 10:45 | disposition short-term general hospital (02) | DRG 773 ==
LOC: YASAS 14:40 → Y3N 16:29
PROVIDERS: ADMIT Allergy & Immunology; ATTEND Surgery
PROC: HZ2ZZZZ Detoxification Services for Substance Abuse Treatment (ICD-10-PCS; principal; 2024-01-30)
DX: F10.230 Alcohol dependence with withdrawal, uncomplicated (principal); F14.20 Cocaine dependence, uncomplicated; F11.20 Opioid dependence, uncomplicated; F12.20 Cannabis dependence, uncomplicated; F17.210 Nicotine dependence, cigarettes, uncomplicated; I25.10 Atherosclerotic heart disease of native coronary artery without angina pectoris; I13.0 Hypertensive heart and chronic kidney disease with heart failure and stage 1 through stage 4 chronic kidney disease, or unspecified chronic kidney disease; N18.4 Chronic kidney disease, stage 4 (severe); I50.9 Heart failure, unspecified; Z95.5 Presence of coronary angioplasty implant and graft; E11.51 Type 2 diabetes mellitus with diabetic peripheral angiopathy without gangrene; Z79.4 Long term (current) use of insulin; K21.9 Gastro-esophageal reflux disease without esophagitis; R11.2 Nausea with vomiting, unspecified; R42 Dizziness and giddiness; Z88.8 Allergy status to other drugs, medicaments and biological substances
CPT/HCPCS: 80305; 80307; 82962; 93005; 93010; Q0162

== ENCOUNTER 2024-02-02 23:16 | Inpatient (IN) | payer OTHER ==
[2024-02-03] MEDS ORDERED: ACETAMINOPHEN INJECTION 100 ML ONE ×2 (00:49→10:22)
[2024-02-03 00:56] LABS: VENOUS BASE EXCESS 49.1 mmol/L (-2-2); VENOUS O2 SATURATION 27.4 % (70-80); VENOUS PH 7.483 (7.310-7.410)
[2024-02-03 00:59] LABS: VENOUS PCO2 111.5 mmHg (38-52)
[2024-02-03 01:03] LABS: BASO % 0.4 % (0-2.0); EOS % 0.6 % (0-4.5); HEMATOCRIT 35.9 % (35.4-49); HEMOGLOBIN 11.2 GM/dL (11.7-16.9); LYMPH % 12.8 % (8-40); MCHC 31.3 g/dl (32.0-35.9); MEAN CELL VOLUME 76.7 fl (80-96); MEAN PLT VOLUME 8.1 fl (7.5-11.1); MONO % 4.9 % (3.8-10.2); NEUT % 81.3 % (42.8-82.8); PLATELET COUNT 598 10^3/uL (134-434); RBC 4.68 M/mm3 (4.00-5.60); RDW 18.2 % (11.9-15.9); WHITE BLOOD COUNT 10.7 K/mm3 (4.0-10.0)
[2024-02-03] MEDS: LACTATED RINGERS SOLUTION 1000 ML INFUS.BAG IV ONE ×2 (01:08→06:41)
[2024-02-03] MEDS: ACETAMINOPHEN 1000 MG/100 ML BAG IVPB ONE (01:08)
[2024-02-03 01:13] LABS: INR 0.95 (0.83-1.09); PROTHROMBIN TIME (PATIENT) 10.9 SEC (9.7-13.0)
[2024-02-03 01:16] LABS: ACTIVATED PTT 30.8 SECONDS (25.2-36.5)
[2024-02-03 01:26] LABS: CHLORIDE 59 mmol/L (98-107); SODIUM 133 mmol/L (136-145)
[2024-02-03 01:28] LABS: ALBUMIN 3.5 g/dl (3.4-5.0); CALCIUM 9.6 mg/dL (8.5-10.1)
[2024-02-03 01:29] LABS: BLOOD UREA NITROGEN 36.3 mg/dL (7-18); GLUCOSE,RANDOM 202 mg/dL (74-106)
[2024-02-03 01:32] LABS: CREATININE 4.7 mg/dL (0.55-1.3); SGOT/AST 20 U/L (15-37); SGPT/ALT 18 U/L (13-61)
[2024-02-03 01:33] LABS: BILIRUBIN,TOTAL 0.3 mg/dL (0.2-1); TOT PROT 8.5 g/dl (6.4-8.2)
[2024-02-03 01:34] LABS: ANION GAP 29 mmol/L (4-13); CO2 > 45 mmol/L (21-32); POTASSIUM 2.9 mmol/L (3.5-5.1)
[2024-02-03 01:35] LABS: ALK PHOS 132 U/L (45-117)
[2024-02-03 02:38] LABS: VENOUS BASE EXCESS 36.5 mmol/L (-2-2); VENOUS O2 SATURATION 41.3 % (70-80); VENOUS PH 7.508 (7.310-7.410)
[2024-02-03 02:50] LABS: VENOUS PCO2 84.5 mmHg (38-52)
[2024-02-03] MEDS: KCL 10 MEQ IVPB 10 MEQ/100 ML INFUS.BAG IVPB SCH ×2 (02:51→15:00)
[2024-02-03 03:04] LABS: CHLORIDE 60 mmol/L (98-107); SODIUM 136 mmol/L (136-145)
[2024-02-03 03:05] LABS: CALCIUM 9.6 mg/dL (8.5-10.1)
[2024-02-03 03:06] LABS: BLOOD UREA NITROGEN 37.8 mg/dL (7-18); GLUCOSE,RANDOM 131 mg/dL (74-106)
[2024-02-03 03:09] LABS: CREATININE 4.7 mg/dL (0.55-1.3)
[2024-02-03 03:16] LABS: ANION GAP 31 mmol/L (4-13); CO2 > 45 mmol/L (21-32); LACTIC ACID 2.3 mmol/L (0.4-2.0); POTASSIUM 2.7 mmol/L (3.5-5.1)
[2024-02-03 03:36] LABS: PHOSPHOROUS 6.3 mg/dL (2.5-4.9)
[2024-02-03] MEDS: morphine CARPU-JECT 4 MG/1 ML DISP.SYRIN IVPUSH ONE (04:28)
[2024-02-03] MEDS: LACTATED RINGERS SOLUTION 1,000 ML/1,000 ML INFUS.BAG IV SCH (09:48)
[2024-02-03] MEDS ORDERED: HYDROmorphone HCl 2 MG/ML VIAL IVPB PRN (09:48)
[2024-02-03] MEDS: SODIUM CHLORIDE 0.9%/KCL 20 MEQ/1,000 ML INFUS.BAG IV SCH ×2 (09:49→15:03)
[2024-02-03] MEDS ORDERED: TRIMETHOBENZAMIDE HCL 200MG/2ML INJ IM ONE (10:03)
[2024-02-03] MEDS: ACETAMINOPHEN 1000 MG/100 ML BAG IVPB PRN (10:07)
[2024-02-03] MEDS: TRIMETHOBENZAMIDE HCL 200MG/2ML INJ IM PRN (10:07)
[2024-02-03 10:39] LABS: EPI CELLS 8 /uL (0-25.1); HYALINE CASTS 1 /uL (0-3.1); PH,URINE >= 9.0 (5.0-8.0); URINE APPEARANCE CLEAR; URINE BACTERIA 97 /uL (0-1359); URINE BILIRUBIN NEGATIVE (NEGATIVE); URINE COLOR YELLOW; URINE GLUCOSE (UA) NEGATIVE (NEGATIVE); URINE KETONE NEGATIVE (NEGATIVE); URINE LEUK ESTERASE NEGATIVE (NEGATIVE); URINE NITRITE NEGATIVE (NEGATIVE); URINE PROTEIN 2+ (NEGATIVE); URINE RBC 5 /uL (0-23.9); URINE UROBILINOGEN 0.2 mg/dL (0.2-1.0); URINE WBC 23 /uL (0-25.8)
[2024-02-03 10:40] LABS: HEMOGLOBIN 8.4 GM/dL (11.7-16.9); MCHC 31.2 g/dl (32.0-35.9); MEAN CELL VOLUME 76.9 fl (80-96); MEAN PLT VOLUME 7.8 fl (7.5-11.1); PLATELET COUNT 454 10^3/uL (134-434); RBC 3.51 M/mm3 (4.00-5.60); RDW 18.6 % (11.9-15.9); WHITE BLOOD COUNT 10.9 K/mm3 (4.0-10.0)
[2024-02-03] MEDS: levETIRAcetam 500 MG TABLET (FP) PO SCH (10:49)
[2024-02-03 10:57] LABS: CHLORIDE 68 mmol/L (98-107); SODIUM 134 mmol/L (136-145)
[2024-02-03 11:00] LABS: BLOOD UREA NITROGEN 37.1 mg/dL (7-18); GLUCOSE,RANDOM 183 mg/dL (74-106); MAGNESIUM 2.6 mg/dL (1.8-2.4)
[2024-02-03 11:03] LABS: CREATININE 4.5 mg/dL (0.55-1.3); PHOSPHOROUS 6.4 mg/dL (2.5-4.9); SGOT/AST 17 U/L (15-37)
[2024-02-03 11:04] LABS: BILIRUBIN,TOTAL 0.2 mg/dL (0.2-1); SGPT/ALT 14 U/L (13-61)
[2024-02-03 11:05] LABS: ALK PHOS 104 U/L (45-117)
[2024-02-03 11:17] LABS: TOT PROT 6.5 g/dl (6.4-8.2)
[2024-02-03 11:26] LABS: ALBUMIN 2.7 g/dl (3.4-5.0); ANION GAP 21 mmol/L (4-13); CO2 > 45 mmol/L (21-32); POTASSIUM 2.9 mmol/L (3.5-5.1)
[2024-02-03 11:51] LABS: ALLENS TEST POSITIVE; ARTERIAL BLD GAS O2 SATURATION 99.1 % (95-98); ARTERIAL BLOOD GAS BASE EXCESS 34.5 mmol/L (-2-2); ARTERIAL BLOOD GAS PO2 149.7 mmHg (80-100); ARTERIAL BLOOD GAS pH 7.572 (7.350-7.450)
[2024-02-03] MEDS: SEVELAMER CARBONATE 800 MG TAB (FP) PO SCH (12:25)
[2024-02-03] MEDS: LORazepam 2 MG/ML SDV VIAL IVPUSH PRN (13:25)
[2024-02-03] MEDS ORDERED: LACTATED RINGERS SOLUTION 1,000 ML/1,000 ML INFUS.BAG IV SCH (14:30)
[2024-02-03 15:48] LABS: CHLORIDE 66 mmol/L (98-107); POTASSIUM 3.1 mmol/L (3.5-5.1); SODIUM 132 mmol/L (136-145)
[2024-02-03 15:50] LABS: ALBUMIN 2.8 g/dl (3.4-5.0); CALCIUM 8.4 mg/dL (8.5-10.1); GLUCOSE,RANDOM 235 mg/dL (74-106)
[2024-02-03 15:53] LABS: ANION GAP 21 mmol/L (4-13); CO2 > 45 mmol/L (21-32); CREATININE 4.6 mg/dL (0.55-1.3); IRON SERUM 39 ug/dL (50-175); SGOT/AST 28 U/L (15-37); SGPT/ALT 17 U/L (13-61)
[2024-02-03 15:54] LABS: TOTAL IRON BINDING CAPACITY 341 ug/dL (250-450)
[2024-02-03 15:55] LABS: BILIRUBIN,TOTAL 0.3 mg/dL (0.2-1); TOT PROT 7.1 g/dl (6.4-8.2)
[2024-02-03 15:56] LABS: ALK PHOS 109 U/L (45-117)
[2024-02-03] MEDS: POTASSIUM CHLORIDE ORAL LIQUID 20 MEQ/15 ML PO ONE (16:18)
[2024-02-03 18:48] LABS: CHLORIDE 68 mmol/L (98-107); SODIUM 132 mmol/L (136-145)
[2024-02-03 18:49] LABS: CALCIUM 8.3 mg/dL (8.5-10.1)
[2024-02-03 18:50] LABS: ALBUMIN 2.8 g/dl (3.4-5.0); GLUCOSE,RANDOM 273 mg/dL (74-106)
[2024-02-03 18:53] LABS: CREATININE 4.4 mg/dL (0.55-1.3); SGOT/AST 28 U/L (15-37); SGPT/ALT 17 U/L (13-61)
[2024-02-03 18:55] LABS: BILIRUBIN,TOTAL 0.3 mg/dL (0.2-1); TOT PROT 6.7 g/dl (6.4-8.2)
[2024-02-03 18:56] LABS: ALK PHOS 104 U/L (45-117)
[2024-02-03 19:00] LABS: ANION GAP 19 mmol/L (4-13); CO2 > 45 mmol/L (21-32)
[2024-02-03] MEDS: SODIUM CHLORIDE 500 ML IV STA (19:02)
[2024-02-04 00:16] LABS: CHLORIDE 70 mmol/L (98-107); POTASSIUM 3.8 mmol/L (3.5-5.1); SODIUM 134 mmol/L (136-145)
[2024-02-04 00:17] LABS: BLOOD UREA NITROGEN 44.9 mg/dL (7-18); CALCIUM 8.2 mg/dL (8.5-10.1); GLUCOSE,RANDOM 170 mg/dL (74-106)
[2024-02-04 00:19] LABS: ANION GAP 19 mmol/L (4-13); CO2 > 45 mmol/L (21-32)
[2024-02-04 00:21] LABS: CREATININE 4.3 mg/dL (0.55-1.3)
[2024-02-04 08:28] LABS: CHLORIDE 74 mmol/L (98-107); POTASSIUM 4.4 mmol/L (3.5-5.1); SODIUM 133 mmol/L (136-145)
[2024-02-04 08:36] LABS: ALBUMIN 2.7 g/dl (3.4-5.0); CALCIUM 8.7 mg/dL (8.5-10.1); GLUCOSE,RANDOM 172 mg/dL (74-106); MAGNESIUM 2.4 mg/dL (1.8-2.4)
[2024-02-04 08:37] LABS: BLOOD UREA NITROGEN 54.5 mg/dL (7-18); PHOSPHOROUS 5.5 mg/dL (2.5-4.9)
[2024-02-04 08:38] LABS: SGOT/AST 40 U/L (15-37); SGPT/ALT 20 U/L (13-61)
[2024-02-04 08:39] LABS: BILIRUBIN,TOTAL 0.3 mg/dL (0.2-1); CREATININE 4.3 mg/dL (0.55-1.3)
[2024-02-04 08:40] LABS: ALK PHOS 100 U/L (45-117); TOT PROT 6.7 g/dl (6.4-8.2)
[2024-02-04 08:43] LABS: BASO % 0.9 % (0-2.0); EOS % 1.3 % (0-4.5); HEMATOCRIT 28.8 % (35.4-49); HEMOGLOBIN 9.1 GM/dL (11.7-16.9); LYMPH % 16.4 % (8-40); MCH 24.3 pg (25.7-33.7); MCHC 31.6 g/dl (32.0-35.9); MEAN CELL VOLUME 76.9 fl (80-96); MEAN PLT VOLUME 8.5 fl (7.5-11.1); MONO % 5.8 % (3.8-10.2); NEUT % 75.6 % (42.8-82.8); PLATELET COUNT 442 10^3/uL (134-434); RBC 3.75 M/mm3 (4.00-5.60); RDW 18.1 % (11.9-15.9); WHITE BLOOD COUNT 9.6 K/mm3 (4.0-10.0)
[2024-02-04 08:45] LABS: ANION GAP 14 mmol/L (4-13); CO2 > 45 mmol/L (21-32)
[2024-02-04] MEDS: ACETAMINOPHEN 1000 MG/100 ML BAG IVPB ONE ×3 (10:36→22:44)
[2024-02-04] MEDS: INSULIN ASPART SLIDING SCALE (NOVOLOG) 1 VIAL SQ SCH ×2 (12:45→22:37)
[2024-02-04] MEDS ORDERED: ACETAMINOPHEN 1000 MG/100 ML BAG IVPB PRN (14:58)
[2024-02-04] MEDS: SODIUM CHLORIDE 1,000 ML IV SCH (15:27)
[2024-02-05 07:38] LABS: BASO % 1.1 % (0-2.0); EOS % 3.4 % (0-4.5); HEMATOCRIT 24.5 % (35.4-49); HEMOGLOBIN 7.7 GM/dL (11.7-16.9); LYMPH % 26.2 % (8-40); MCH 24.2 pg (25.7-33.7); MCHC 31.5 g/dl (32.0-35.9); MEAN CELL VOLUME 76.7 fl (80-96); MEAN PLT VOLUME 8.3 fl (7.5-11.1); MONO % 6.8 % (3.8-10.2); NEUT % 62.5 % (42.8-82.8); PLATELET COUNT 408 10^3/uL (134-434); RDW 18.1 % (11.9-15.9); WHITE BLOOD COUNT 5.9 K/mm3 (4.0-10.0)
[2024-02-05 09:07] LABS: POTASSIUM 4.5 mmol/L (3.5-5.1)
[2024-02-05 09:09] LABS: BLOOD UREA NITROGEN 53.1 mg/dL (7-18)
[2024-02-05 09:10] LABS: MAGNESIUM 2.2 mg/dL (1.8-2.4)
[2024-02-05 09:11] LABS: CREATININE 3.9 mg/dL (0.55-1.3)
[2024-02-05] MEDS: ACETAMINOPHEN 1000 MG/100 ML BAG IVPB ONE (11:45)
[2024-02-05] MEDS: HEPARIN NA (PORCINE) 5,000 UNITS/ML 1ML VIAL SQ SCH ×2 (14:31→22:14)
[2024-02-05] MEDS: MAG HYDROX/AL HYDROX/SIMETH 30 ML UNIT-DOSE CUP PO ONE (18:33)
[2024-02-05] MEDS: IRON SUCROSE INJECTION 200 MG in SODIUM CHLORIDE 100 ML IVPB ONE (18:35)
[2024-02-05] MEDS ORDERED: TRIMETHOBENZAMIDE HCL 200MG/2ML INJ IM PRN (19:30)
[2024-02-05] MEDS: SODIUM CHLORIDE 1,000 ML IV SCH (22:13)
[2024-02-05] MEDS: levETIRAcetam 500 MG TABLET (FP) PO SCH (22:14)
[2024-02-05] MEDS: INSULIN ASPART SLIDING SCALE (NOVOLOG) 1 VIAL SQ SCH (22:14)
[2024-02-05] MEDS: CYCLOBENZAPRINE HCL 5 MG TABLET PO ONE (23:49)
[2024-02-06 12:04] LABS: BASO % 0.7 % (0-2.0); EOS % 1.9 % (0-4.5); HEMATOCRIT 29.2 % (35.4-49); HEMOGLOBIN 9.5 GM/dL (11.7-16.9); LYMPH % 14.9 % (8-40); MCH 24.3 pg (25.7-33.7); MCHC 32.6 g/dl (32.0-35.9); MEAN CELL VOLUME 74.7 fl (80-96); MEAN PLT VOLUME 8.8 fl (7.5-11.1); MONO % 5.3 % (3.8-10.2); NEUT % 77.2 % (42.8-82.8); PLATELET COUNT 488 10^3/uL (134-434); RBC 3.91 M/mm3 (4.00-5.60); WHITE BLOOD COUNT 6.5 K/mm3 (4.0-10.0)
[2024-02-06 12:11] LABS: POTASSIUM 3.6 mmol/L (3.5-5.1)
[2024-02-06 12:14] LABS: CALCIUM 9.1 mg/dL (8.5-10.1)
[2024-02-06 12:15] LABS: BLOOD UREA NITROGEN 47.3 mg/dL (7-18); MAGNESIUM 2.1 mg/dL (1.8-2.4)
[2024-02-06 12:18] LABS: CREATININE 3.7 mg/dL (0.55-1.3)
[2024-02-06 12:19] LABS: PHOSPHOROUS 4.2 mg/dL (2.5-4.9)
[2024-02-06 12:20] LABS: BILIRUBIN,TOTAL 0.2 mg/dL (0.2-1); TOT PROT 7.4 g/dl (6.4-8.2)
[2024-02-06 13:35] LABS: HEMATOCRIT 29.8 % (35.4-49); HEMOGLOBIN 9.6 GM/dL (11.7-16.9); MCH 24.3 pg (25.7-33.7); MCHC 32.2 g/dl (32.0-35.9); MEAN CELL VOLUME 75.5 fl (80-96); RBC 3.95 M/mm3 (4.00-5.60); RDW 17.9 % (11.9-15.9)
[2024-02-06 13:37] LABS: WHITE BLOOD COUNT 7.2 K/mm3 (4.0-10.0)
[2024-02-06 13:50] LABS: POTASSIUM 3.9 mmol/L (3.5-5.1)
[2024-02-06 13:52] LABS: CALCIUM 9.6 mg/dL (8.5-10.1)
[2024-02-06 13:53] LABS: BLOOD UREA NITROGEN 47.8 mg/dL (7-18)
[2024-02-06 13:56] LABS: CREATININE 3.5 mg/dL (0.55-1.3)
[2024-02-06] MEDS: SEVELAMER CARBONATE 800 MG TAB (FP) PO SCH (14:39)
[2024-02-06 14:50] LABS: ANISOCYTOSIS 0; MACROCYTOSIS 0
[2024-02-06 14:52] LABS: PLATELET ESTIMATE INCREASED
[2024-02-06] MEDS ORDERED: RAPID SEQUENCE INTUBATION KIT NR ONE ×2 (14:55→15:05)
[2024-02-06] MEDS: POLYETHYLENE GLYCOL (HEALTHYLAX) 3350 17 GM PACKET PO SCH (16:16)
[2024-02-06] MEDS ORDERED: FENTANYL NS IVPB 500 MCG/100 ML BAG IVPB ONE (16:18)
[2024-02-06] MEDS: LORazepam 1 MG TABLET PO ONE (16:18)
[2024-02-06] MEDS ORDERED: PROPOFOL 1,000,000 MCG/100 ML VIAL ONE (16:18)
[2024-02-06] MEDS: PANTOPRAZOLE SODIUM 40 MG VIAL IVPUSH SCH (16:19)
[2024-02-06] MEDS: PROPOFOL 1,000,000 MCG/100 ML VIAL IVPB SCH (17:03)
[2024-02-06] MEDS: FENTANYL NS IVPB 500 MCG/100 ML BAG IVPB SCH (17:04)
[2024-02-06] MEDS: MIDAZOLAM IN 0.9 % SOD.CHLORID 100 MG/100 ML PLAST..BAG IVPB SCH (17:05)
[2024-02-06 20:36] LABS: ARTERIAL BLD GAS O2 SATURATION 99.9 % (95-98); ARTERIAL BLOOD GAS PO2 437.4 mmHg (80-100); ARTERIAL BLOOD GAS pH 7.486 (7.350-7.450)
[2024-02-06 20:40] LABS: ALLENS TEST POSITIVE
[2024-02-06 20:41] LABS: VENT MODE A/C; VENT RATE 14
[2024-02-06] MEDS ORDERED: SENNOSIDES 8.8 MG/5 ML SYRUP PO SCH (22:00)
[2024-02-07] MEDS: LACTATED RINGERS SOLUTION 1000 ML INFUS.BAG IV ONE ×3 (00:19→18:24)
[2024-02-07 07:58] LABS: POTASSIUM 3.4 mmol/L (3.5-5.1)
[2024-02-07 08:08] LABS: CALCIUM 8.3 mg/dL (8.5-10.1)
[2024-02-07 08:09] LABS: BLOOD UREA NITROGEN 45.4 mg/dL (7-18); HEMATOCRIT 18.5 % (35.4-49); MAGNESIUM 1.8 mg/dL (1.8-2.4); MCH 24.4 pg (25.7-33.7); MCHC 32.2 g/dl (32.0-35.9); MEAN CELL VOLUME 75.8 fl (80-96); MEAN PLT VOLUME 8.5 fl (7.5-11.1); PLATELET COUNT 358 10^3/uL (134-434); RBC 2.44 M/mm3 (4.00-5.60); RDW 17.7 % (11.9-15.9); WHITE BLOOD COUNT 4.3 K/mm3 (4.0-10.0)
[2024-02-07 08:12] LABS: CREATININE 3.8 mg/dL (0.55-1.3); PHOSPHOROUS 3.9 mg/dL (2.5-4.9)
[2024-02-07 08:13] LABS: BILIRUBIN,TOTAL 0.2 mg/dL (0.2-1)
[2024-02-07 08:31] LABS: ALBUMIN 2.1 g/dl (3.4-5.0); TOT PROT 5.3 g/dl (6.4-8.2)
[2024-02-07 09:05] LABS: HEMATOCRIT 20.9 % (35.4-49); MCH 24.4 pg (25.7-33.7); MCHC 32.2 g/dl (32.0-35.9); MEAN CELL VOLUME 75.9 fl (80-96); MEAN PLT VOLUME 8.3 fl (7.5-11.1); PLATELET COUNT 330 10^3/uL (134-434); RBC 2.75 M/mm3 (4.00-5.60); RDW 17.6 % (11.9-15.9); WHITE BLOOD COUNT 4.7 K/mm3 (4.0-10.0)
[2024-02-07 09:19] LABS: HEMOGLOBIN 6.7 GM/dL (11.7-16.9)
[2024-02-07] MEDS: BISACODYL 10 MG SUPP.RECT PR PRN (10:51)
[2024-02-07] MEDS: MAGNESIUM CITRATE 300 ML BOTTLE PO ONE (10:51)
[2024-02-07] MEDS: LACTULOSE 20 GM/30 ML UDC (FOR ORAL USE ONLY) PO SCH (10:51)
[2024-02-07] MEDS: PIPERACILLIN/TAZOB 2.25 GM 2.25 GM/50 ML BAG IVPB SCH (14:26)
[2024-02-07 16:16] LABS: HEMATOCRIT 22.9 % (35.4-49); HEMOGLOBIN 7.5 GM/dL (11.7-16.9); MCH 24.9 pg (25.7-33.7); MCHC 32.5 g/dl (32.0-35.9); MEAN CELL VOLUME 76.6 fl (80-96); MEAN PLT VOLUME 8.6 fl (7.5-11.1); PLATELET COUNT 356 10^3/uL (134-434); RBC 2.99 M/mm3 (4.00-5.60); RDW 17.6 % (11.9-15.9); WHITE BLOOD COUNT 6.9 K/mm3 (4.0-10.0)
[2024-02-07] MEDS ORDERED: DEXTROSE 50%-WATER 25 GM/50 ML DISP.SYRIN ONE (21:02)
[2024-02-07] MEDS: DEXTROSE 50%-WATER 25 GM/50 ML DISP.SYRIN IVPUSH ONE (21:03)
[2024-02-07 22:29] LABS: HEMATOCRIT 25.2 % (35.4-49); HEMOGLOBIN 8.4 GM/dL (11.7-16.9); MCH 26.1 pg (25.7-33.7); MCHC 33.2 g/dl (32.0-35.9); MEAN CELL VOLUME 78.6 fl (80-96); MEAN PLT VOLUME 7.7 fl (7.5-11.1); PLATELET COUNT 311 10^3/uL (134-434); RBC 3.21 M/mm3 (4.00-5.60); RDW 17.6 % (11.9-15.9); WHITE BLOOD COUNT 7.9 K/mm3 (4.0-10.0)
[2024-02-08 01:23] LABS: HEMATOCRIT 26.3 % (35.4-49); HEMOGLOBIN 8.8 GM/dL (11.7-16.9); MCH 26.1 pg (25.7-33.7); MCHC 33.4 g/dl (32.0-35.9); MEAN CELL VOLUME 78.2 fl (80-96); MEAN PLT VOLUME 7.9 fl (7.5-11.1); PLATELET COUNT 332 10^3/uL (134-434); RBC 3.37 M/mm3 (4.00-5.60); RDW 17.4 % (11.9-15.9); WHITE BLOOD COUNT 7.7 K/mm3 (4.0-10.0)
[2024-02-08 01:32] LABS: PROTHROMBIN TIME (PATIENT) 11.3 SEC (9.7-13.0)
[2024-02-08] MEDS: LACTATED RINGERS SOLUTION 1000 ML INFUS.BAG IV ONE (02:17)
[2024-02-08] MEDS: MINERAL OIL ENEMA 133 ML ENEMA RC ONE (04:55)
[2024-02-08 06:17] LABS: ARTERIAL BLD GAS O2 SATURATION 99.1 % (95-98); ARTERIAL BLOOD GAS BASE EXCESS 3.5 mmol/L (-2-2); ARTERIAL BLOOD GAS PO2 164.3 mmHg (80-100); ARTERIAL BLOOD GAS pH 7.425 (7.350-7.450)
[2024-02-08 06:36] LABS: ALLENS TEST POSITIVE
[2024-02-08 06:37] LABS: VENT RATE 14
[2024-02-08 07:03] LABS: BASO % 0.2 % (0-2.0); EOS % 3.6 % (0-4.5); HEMATOCRIT 25.6 % (35.4-49); HEMOGLOBIN 8.5 GM/dL (11.7-16.9); LYMPH % 10.5 % (8-40); MCH 26.3 pg (25.7-33.7); MCHC 33.3 g/dl (32.0-35.9); MEAN CELL VOLUME 79.1 fl (80-96); MEAN PLT VOLUME 8.5 fl (7.5-11.1); MONO % 7.3 % (3.8-10.2); NEUT % 78.4 % (42.8-82.8); PLATELET COUNT 341 10^3/uL (134-434); RBC 3.24 M/mm3 (4.00-5.60); RDW 17.3 % (11.9-15.9); WHITE BLOOD COUNT 8.1 K/mm3 (4.0-10.0)
[2024-02-08 07:14] LABS: POTASSIUM 4.3 mmol/L (3.5-5.1)
[2024-02-08 07:17] LABS: BLOOD UREA NITROGEN 37.5 mg/dL (7-18); CALCIUM 7.9 mg/dL (8.5-10.1); MAGNESIUM 1.9 mg/dL (1.8-2.4)
[2024-02-08 07:21] LABS: CREATININE 3.1 mg/dL (0.55-1.3); PHOSPHOROUS 4.1 mg/dL (2.5-4.9)
[2024-02-08 07:22] LABS: BILIRUBIN,TOTAL 0.4 mg/dL (0.2-1); TOT PROT 5.2 g/dl (6.4-8.2)
[2024-02-08] MEDS: DEXTROSE 5%-LACTATED RINGERS 1,000 ML IV SCH (08:05)
[2024-02-08] MEDS: PANTOPRAZOLE SODIUM 40 MG VIAL IVPUSH SCH (09:58)
[2024-02-08] MEDS: levETIRAcetam 500 MG/5 ML INJECTION VIAL IVPB STA (10:46)
[2024-02-08] MEDS: levETIRAcetam 500 MG/5 ML INJECTION VIAL IVPB SCH (21:13)
[2024-02-08] MEDS: SENNOSIDES 8.8 MG/5 ML SYRUP PO SCH (21:17)
[2024-02-09 06:19] LABS: ARTERIAL BLD GAS O2 SATURATION 98.8 % (95-98); ARTERIAL BLOOD GAS BASE EXCESS 1.1 mmol/L (-2-2); ARTERIAL BLOOD GAS PO2 148.3 mmHg (80-100); ARTERIAL BLOOD GAS pH 7.377 (7.350-7.450)
[2024-02-09 06:31] LABS: ALLENS TEST POSITIVE; VENT MODE A/C; VENT RATE 14
[2024-02-09] MEDS: PROPOFOL 1,000,000 MCG/100 ML VIAL IVPB SCH (06:55)
[2024-02-09 07:29] LABS: HEMATOCRIT 25.6 % (35.4-49); HEMOGLOBIN 8.3 GM/dL (11.7-16.9); MCH 26.1 pg (25.7-33.7); MCHC 32.6 g/dl (32.0-35.9); MEAN CELL VOLUME 79.9 fl (80-96); MEAN PLT VOLUME 8.6 fl (7.5-11.1); PLATELET COUNT 289 10^3/uL (134-434); RDW 17.5 % (11.9-15.9); WHITE BLOOD COUNT 7.2 K/mm3 (4.0-10.0)
[2024-02-09 07:32] LABS: POTASSIUM 4.8 mmol/L (3.5-5.1)
[2024-02-09 07:39] LABS: MAGNESIUM 2.3 mg/dL (1.8-2.4)
[2024-02-09 07:42] LABS: CREATININE 3.1 mg/dL (0.55-1.3); PHOSPHOROUS 4.9 mg/dL (2.5-4.9)
[2024-02-09 16:24] VITALS: BMI 19.4
[2024-02-10 07:14] LABS: HEMATOCRIT 30.2 % (35.4-49); HEMOGLOBIN 9.7 GM/dL (11.7-16.9); MCH 25.7 pg (25.7-33.7); MCHC 32.2 g/dl (32.0-35.9); MEAN CELL VOLUME 79.9 fl (80-96); MEAN PLT VOLUME 8.2 fl (7.5-11.1); PLATELET COUNT 389 10^3/uL (134-434); RBC 3.78 M/mm3 (4.00-5.60); RDW 18.1 % (11.9-15.9); WHITE BLOOD COUNT 9.1 K/mm3 (4.0-10.0)
[2024-02-10 07:53] LABS: ALBUMIN 1.9 g/dl (3.4-5.0); BLOOD UREA NITROGEN 27.3 mg/dL (7-18); CALCIUM 8.5 mg/dL (8.5-10.1); CREATININE 2.9 mg/dL (0.55-1.3); MAGNESIUM 2.1 mg/dL (1.8-2.4)
[2024-02-10 07:54] LABS: BILIRUBIN,TOTAL 0.4 mg/dL (0.2-1); TOT PROT 5.5 g/dl (6.4-8.2)
[2024-02-10 07:57] LABS: PHOSPHOROUS 3.8 mg/dL (2.5-4.9)
[2024-02-10] MEDS: POLYETHYLENE GLYCOL (HEALTHYLAX) 3350 17 GM PACKET PO SCH (09:26)
[2024-02-10] MEDS: PANTOPRAZOLE SODIUM 40 MG VIAL IVPUSH SCH (09:26)
[2024-02-10] MEDS: LACTATED RINGERS SOLUTION 1,000 ML/1,000 ML INFUS.BAG IV STA (09:29)
[2024-02-10] MEDS: HEPARIN NA (PORCINE) 5,000 UNITS/ML 1ML VIAL SQ SCH (14:20)
[2024-02-11] MEDS ORDERED: TRIMETHOBENZAMIDE HCL 200MG/2ML INJ IM PRN (07:56)
[2024-02-11] MEDS: PANTOPRAZOLE SODIUM 40 MG VIAL IVPUSH SCH (10:34)
[2024-02-11] MEDS: POLYETHYLENE GLYCOL (HEALTHYLAX) 3350 17 GM PACKET PO SCH (10:34)
[2024-02-11] MEDS: levETIRAcetam 500 MG/5 ML INJECTION VIAL IVPB SCH (10:34)
[2024-02-11] MEDS: PIPERACILLIN/TAZOB 2.25 GM 2.25 GM/50 ML BAG IVPB SCH (10:34)
[2024-02-11 13:04] LABS: HEMATOCRIT 33.6 % (35.4-49); HEMOGLOBIN 10.9 GM/dL (11.7-16.9); MCH 25.9 pg (25.7-33.7); MCHC 32.5 g/dl (32.0-35.9); MEAN CELL VOLUME 79.6 fl (80-96); MEAN PLT VOLUME 7.7 fl (7.5-11.1); PLATELET COUNT 382 10^3/uL (134-434); RBC 4.22 M/mm3 (4.00-5.60); RDW 18.1 % (11.9-15.9); WHITE BLOOD COUNT 5.8 K/mm3 (4.0-10.0)
[2024-02-11 13:33] LABS: POTASSIUM 5.1 mmol/L (3.5-5.1)
[2024-02-11 13:38] LABS: ALBUMIN 2.1 g/dl (3.4-5.0)
[2024-02-11 13:39] LABS: BLOOD UREA NITROGEN 23.4 mg/dL (7-18); CALCIUM 8.4 mg/dL (8.5-10.1); MAGNESIUM 1.8 mg/dL (1.8-2.4)
[2024-02-11 13:41] LABS: CREATININE 2.8 mg/dL (0.55-1.3); PHOSPHOROUS 3.2 mg/dL (2.5-4.9)
[2024-02-11 13:43] LABS: BILIRUBIN,TOTAL 0.3 mg/dL (0.2-1); TOT PROT 6.1 g/dl (6.4-8.2)
[2024-02-11] MEDS: INSULIN ASPART SLIDING SCALE (NOVOLOG) 1 VIAL SQ SCH (13:44)
[2024-02-11] MEDS: HEPARIN NA (PORCINE) 5,000 UNITS/ML 1ML VIAL SQ SCH (13:45)
[2024-02-11] MEDS: ACETAMINOPHEN 1000 MG/100 ML BAG IVPB ONE (16:29)
[2024-02-11] MEDS: levETIRAcetam 500 MG/5 ML ORAL SOLUTION (UNIT-DOSE CUPS) PO SCH (16:30)
[2024-02-11] MEDS: AMOX TR/POT CLAV 500MG/125MG TABLETS (FP) PO SCH (17:05)
[2024-02-11] MEDS ORDERED: AMOX TR/POT CLAV 875MG/125MG TABLETS (FP) PO SCH (17:30)
[2024-02-12] MEDS: METOPROLOL TARTRATE 25 MG TABLET (FP) PO SCH (09:12)
[2024-02-12] MEDS: PANTOPRAZOLE 40 MG TABLET PO SCH (09:12)
[2024-02-12] MEDS: NIFEdipine E.R. 30 MG TABLET PO SCH (09:12)
[2024-02-12 13:30] LABS: BASO % 0.8 % (0-2.0); HEMOGLOBIN 9.3 GM/dL (11.7-16.9); LYMPH % 16.8 % (8-40); MCH 25.7 pg (25.7-33.7); MEAN CELL VOLUME 80.6 fl (80-96); MEAN PLT VOLUME 7.5 fl (7.5-11.1); MONO % 7.7 % (3.8-10.2); NEUT % 69.7 % (42.8-82.8); PLATELET COUNT 355 10^3/uL (134-434); RDW 17.9 % (11.9-15.9); WHITE BLOOD COUNT 6.7 K/mm3 (4.0-10.0)
[2024-02-12 14:14] LABS: ALBUMIN 2.1 g/dl (3.4-5.0)
[2024-02-12 14:15] LABS: BLOOD UREA NITROGEN 20.7 mg/dL (7-18); CALCIUM 8.2 mg/dL (8.5-10.1)
[2024-02-12 14:16] LABS: MAGNESIUM 1.7 mg/dL (1.8-2.4)
[2024-02-12 14:19] LABS: CREATININE 2.4 mg/dL (0.55-1.3)
[2024-02-12 14:21] LABS: BILIRUBIN,TOTAL 0.2 mg/dL (0.2-1); TOT PROT 5.7 g/dl (6.4-8.2)
[2024-02-12] MEDS: MELATONIN 5 MG TABLETS PO PRN (23:00)
[2024-02-13 09:40] LABS: BASO % 0.7 % (0-2.0); EOS % 4.6 % (0-4.5); HEMOGLOBIN 11.2 GM/dL (11.7-16.9); LYMPH % 25.4 % (8-40); MCH 25.6 pg (25.7-33.7); MCHC 31.9 g/dl (32.0-35.9); MEAN CELL VOLUME 80.4 fl (80-96); MEAN PLT VOLUME 8.1 fl (7.5-11.1); MONO % 5.8 % (3.8-10.2); NEUT % 63.5 % (42.8-82.8); PLATELET COUNT 413 10^3/uL (134-434); RBC 4.35 M/mm3 (4.00-5.60); WHITE BLOOD COUNT 6.1 K/mm3 (4.0-10.0)
[2024-02-13 09:46] LABS: INR 0.95 (0.83-1.09); PROTHROMBIN TIME (PATIENT) 10.7 SEC (9.7-13.0)
[2024-02-13 10:01] LABS: POTASSIUM 5.6 mmol/L (3.5-5.1)
[2024-02-13 10:03] LABS: ALBUMIN 2.4 g/dl (3.4-5.0); CALCIUM 8.5 mg/dL (8.5-10.1); MAGNESIUM 1.7 mg/dL (1.8-2.4)
[2024-02-13 10:06] LABS: BLOOD UREA NITROGEN 22.4 mg/dL (7-18); CREATININE 2.6 mg/dL (0.55-1.3)
[2024-02-13 10:07] LABS: BILIRUBIN,TOTAL 0.2 mg/dL (0.2-1)
[2024-02-13 10:08] LABS: TOT PROT 6.8 g/dl (6.4-8.2)
[2024-02-13] MEDS: SODIUM CHLORIDE 500 ML IV STA (15:11)
[2024-02-13] MEDS: SODIUM ZIRCONIUM CYCLOSILICATE (LOKELMA) 5 GM PACKET PO SCH (15:12)
[2024-02-13 15:42] VITALS: BP 129/81; PULSE 74; RESP 16; TEMP 98.1
== END 2024-02-13 18:28 | disposition home or self-care (01) | DRG 282 ==
LOC: JER 23:16 → JERBED 02-03 04:31 → J4W 02-03 10:42 → J5S 02-05 16:32 → JICU 02-06 15:46 → J7W 02-10 20:55
PROVIDERS: ADMIT Internal Medicine
PROC: 06HM33Z Insertion of Infusion Device into Right Femoral Vein, Percutaneous Approach (ICD-10-PCS; 2024-02-06)
PROC: B54BZZA Ultrasonography of Right Lower Extremity Veins, Guidance (ICD-10-PCS; 2024-02-06)
PROC: 5A1945Z Respiratory Ventilation, 24-96 Consecutive Hours (ICD-10-PCS; 2024-02-06)
PROC: 0BH17EZ Insertion of Endotracheal Airway into Trachea, Via Natural or Artificial Opening (ICD-10-PCS; 2024-02-06)
PROC: 30233N1 Transfusion of Nonautologous Red Blood Cells into Peripheral Vein, Percutaneous Approach (ICD-10-PCS; 2024-02-07)
PROC: 0DB58ZX Excision of Esophagus, Via Natural or Artificial Opening Endoscopic, Diagnostic (ICD-10-PCS; principal; 2024-02-13 12:45)
PROC: BD47ZZZ Ultrasonography of Gastrointestinal Tract (ICD-10-PCS; 2024-02-13 12:45)
DX: K86.1 Other chronic pancreatitis (principal); J96.01 Acute respiratory failure with hypoxia; J69.0 Pneumonitis due to inhalation of food and vomit; E87.3 Alkalosis; N17.9 Acute kidney failure, unspecified; K92.0 Hematemesis; K56.609 Unspecified intestinal obstruction, unspecified as to partial versus complete obstruction; E87.4 Mixed disorder of acid-base balance; A41.9 Sepsis, unspecified organism; I13.0 Hypertensive heart and chronic kidney disease with heart failure and stage 1 through stage 4 chronic kidney disease, or unspecified chronic kidney disease; E11.22 Type 2 diabetes mellitus with diabetic chronic kidney disease; N18.4 Chronic kidney disease, stage 4 (severe); I50.42 Chronic combined systolic (congestive) and diastolic (congestive) heart failure; E87.1 Hypo-osmolality and hyponatremia; E87.6 Hypokalemia; G40.909 Epilepsy, unspecified, not intractable, without status epilepticus; E78.5 Hyperlipidemia, unspecified; K21.9 Gastro-esophageal reflux disease without esophagitis; I25.10 Atherosclerotic heart disease of native coronary artery without angina pectoris; D50.9 Iron deficiency anemia, unspecified; F14.10 Cocaine abuse, uncomplicated; Z95.1 Presence of aortocoronary bypass graft; F10.10 Alcohol abuse, uncomplicated; K44.9 Diaphragmatic hernia without obstruction or gangrene; K20.80 Other esophagitis without bleeding
CPT/HCPCS: 31500; 36415; 36430; 36600; 71045-TC-FY; 71250-TC; 74019-TC-FY; 74174-TC; 74176-TC; 76775-TC; 80048; 80053; 81003; 82010; 82272; 82436; 82728; 82803; 82962; 83540; 83550; 83605; 83655; 83690; 83735; 84100; 84133; 84300; 84484; 85025; 85027; 85384; 85610; 85730; 86850; 86900; 86901; 86922; 87040; 87070; 87186; 87205; 87481; 87635; 88305-TC; 93005; 93010; 94002; 97116-GP; 97162-GP; 99285-25; J0131; J1644; J1756; P9058